=== PATIENT | female | born 1980 | race Caucasian/White ===

== ENCOUNTER 2019-11-24 14:00 | Outpatient (RCR) | payer OTHER, SELFPAY ==
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
--- NOTE | 2019-11-15 13:57 | PCPTNOTE ---
Patient arrived to scheduled appointment this date with her two small children due to no home child care provider; per new guideline with facility appointment needed to be cancelled due to children under age of 18 being allowed.
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
== END 2019-11-24 15:47 | disposition home or self-care (01) ==
LOC: ANHPT 14:00
PROVIDERS: PCP Family Medicine; Visit Provider Family Medicine
DX: M51.06 Intervertebral disc disorders with myelopathy, lumbar region (principal)
CPT/HCPCS: 97014; 97110; 97161; G0283

== ENCOUNTER 2019-12-29 11:14 | Outpatient (CLI) | payer OTHER, SELFPAY ==
[2019-12-29 11:38] LABS: Basophils Absolute Auto 0.1 K/mm3 (0.0-0.1); Basophils Percent Auto 0.7 % (0.2-1.2); Eosinophils Absolute Auto 0.1 K/mm3 (0-0.3); Eosinophils Percent Auto 1.9 % (0-4.4); Hematocrit 45.5 % (37.0-47.0); Hemoglobin 15.2 g/dL (12.0-15.0); Immature Granulocyte Absolute 0.01 K/mm3 (0.00-0.031); Immature Granulocyte Percent A 0.1 % (0-0.5); Lymphocytes Absolute Auto 1.78 K/mm3 (0.9-3.2); Lymphocytes Percent Auto 23.8 % (18.3-44.2); Mean Corpuscular HGB Conc 33.4 g/dl (32-36); Mean Corpuscular Hemoglobin 30.5 pg (26-34); Mean Corpuscular Volume 91.4 fl (80-100); Mean Platelet Volume 9.9 fl (7.4-10.4); Monocytes Absolute Auto 0.5 K/mm3 (0.1-0.6); Monocytes Percent Auto 7.2 % (2.6-8.5); Neutrophils Percent Auto 66.3 % (45.5-73.1); Platelet Count Result 274 k/mm3 (150-375); Red Blood Count 4.98 M/mm3 (4.2-5.4); Red Cell Distribution Width 13.1 % (11.5-14.5); White Blood Count 7.5 K/mm3 (4.5-10.0)
[2019-12-29 11:50] LABS: Alanine Aminotransferase 11 U/L (4-35); Albumin Level 4.5 g/dL (3.5-5.1); Alkaline Phosphatase 88 U/L (38-126); Aspartate Amino Transferase 18 U/L (14-36); Bilirubin,Total 0.7 mg/dL (0.2-1.3); Blood Urea Nitrogen 11 mg/dL (7-17); Calcium 9.1 mg/dL (8.4-10.2); Carbon Dioxide 25 mmol/L (22-30); Chloride 108 mmol/L (98-107); Estimated Glomerular Filt Rate > 60; Glucose 95 mg/dL (65-105); Potassium 3.8 mmol/L (3.4-5.0); Sodium 143 mmol/L (137-145)
[2019-12-29 12:27] LABS: Free T4 Free Thyroxine 1.34 ng/mL (0.78-2.19)
== END 2019-12-29 11:15 | disposition home or self-care (01) ==
PROVIDERS: PCP Family Medicine; Visit Provider Psychiatry & Neurology Neurology
DX: R41.3 Other amnesia (principal)
CPT/HCPCS: 36415; 80053; 84439; 85025; 86038

== ENCOUNTER 2020-01-01 06:58 | Outpatient (CLI) | payer OTHER, SELFPAY ==
--- NOTE | ~2020-01-01 | MR_ITS ---
EXAMINATION: MR brain/brain stem wo con DATE: 01/01/2020 07:56 INDICATION: Memory loss. TECHNIQUE: Magnetic resonance imaging (MRI) of the brain and brainstem was performed without intraven ous contrast. Sequences included sagittal and axial T1-weighted FSE, axial diffusion-weighted FS EPI, axial T2*-weighted GRE, axial T2-weighted FLAIR Propeller, and axial T2-weighted Propeller. Apparent diffusion coefficient (ADC) maps were created. COMPARISON: None. FINDINGS: There are scattered areas of nonspecific increased T2-weighted signal intensity in the cere bral white matter, which is within normal limits for the patient's age. There is no intracranial hemo rrhage, acute infarction, or abnormal intracranial mass lesion. The ventricles are normal in size. Th e paranasal sinuses are clear. The orbits are normal. The mastoid air cells are normal. IMPRESSION: 1. Normal aging brain. Reviewed, dictated and finalized at location A. IMPRESSION: 1. Normal aging brain.
--- NOTE | 2020-01-01 08:30 | NEURO_ITS ---
TEST: DIAGNOSIS: ELECTROENCEPHALOGRAM PATIENT NUMBER: [id number] EEG NUMBER: [id number] RECORDING DATE: 01/01/20 CLINICAL HISTORY: Patient reports she has been having memory loss for a couple of months. Cannot remember events of previous days. CONDITION OF RECORDING: Awake and drowsy EEG DESCRIPTION: Basic resting occipital frequency consists of small amount of well organized medium to high voltage 7-8hz theta and alpha activity mixed with minimal amount of low voltage 15-18hz beta. During drowsiness low voltage beta activity is seen diffusely mixed with waxing and waning posterior alpha rhythms. Photic stimulation produced normal drive. Hyperventilation produced normal and symmetrical build-up. Nonparoxysmal. Nonfocal. Nonlateralizing. IMPRESSION: No significant abnormalities noted. MTDD
== END 2020-01-01 06:59 | disposition home or self-care (01) ==
LOC: ANHIMG 07:02
PROVIDERS: PCP Family Medicine; Visit Provider Psychiatry & Neurology Neurology
DX: R41.3 Other amnesia (principal)
CPT/HCPCS: 70551; 95816

== ENCOUNTER 2022-02-17 07:45 | Outpatient (CLI) | payer OTHER, SELFPAY ==
--- NOTE | ~2022-02-17 | US_ITS ---
EXAMINATION: US pelvic complete DATE: 02/17/2022 11:41 INDICATION: Right lower quadrant abdominal pain. TECHNIQUE: Multiple transabdominal sonographic images of the pelvis were obtained. COMPARISON: CT abdomen and pelvis 04/12/2015 FINDINGS: The uterus is absent. There is no free fluid in the pelvis. The right ovary measures 2.6 x 2.5 x 1.8 cm. The left ovary measures 1.4 x 1.4 x 1.5 cm. There is normal vascular flow in the ovaries. The appendix is not identified. IMPRESSION: 1. Normal ovaries. 2. Absent uterus. 3. Appendix not identified. Reviewed, dictated and finalized at location A.
== END 2022-02-17 07:46 | disposition home or self-care (01) ==
PROVIDERS: Visit Provider Physician Assistant
DX: R10.31 Right lower quadrant pain (principal)
CPT/HCPCS: 76856

== ENCOUNTER 2023-01-12 12:49 | Emergency (ER) | payer OTHER, SELFPAY ==
[2023-01-12 12:54] VITALS: BP 126/74; PULSE 90; RESP 16; TEMP 37.1; O2SAT 99
--- NOTE | 2023-01-12 14:35 | PC.NURSE ---
called for patient in waiting room, no answer
--- NOTE | 2023-01-12 14:41 | PC.NURSE ---
attempted to call patient to room for second time, no answer. patient left without being seen
== END 2023-01-12 14:41 | disposition left against medical advice (07) ==
DX: R25.2 Cramp and spasm (principal)
CPT/HCPCS: 99199

== ENCOUNTER 2024-03-21 10:05 | Emergency (ER) | payer OTHER, SELFPAY ==
--- NOTE | ~2024-03-21 | US_ITS ---
EXAMINATION: US soft tissue upper back DATE: 03/21/2024 10:52 INDICATION: Palpable lump suspicious for abscess the left upper back TECHNIQUE: Multiple grayscale and Doppler ultrasound images of the region of concern at the posterola teral left upper back were obtained. COMPARISON: None FINDINGS: There is a heterogeneously hypoechoic likely complex cystic lesion in the subcutis tissues at the reg ion of concern which measures 1.7 x 1.6 x 1.6 cm without internal vascular flow on color Doppler. The re is some increased vascular flow at the periphery which could be seen with hyperemia in the setting of abscess. The lesion extends to within 1 mm of the skin surface. IMPRESSION: 1. Relatively superficial subcutaneous 1.7 cm complex cystic lesion at the region of concern with dif ferential including abscess, hematoma and epidermoid cyst. Reviewed, dictated and finalized at location A. IMPRESSION: 1. Relatively superficial subcutaneous 1.7 cm complex cystic lesion at the chris on of concern with differential including abscess, hematoma and epidermoid cyst .
[2024-03-21 10:10] VITALS: BP 143/89; PULSE 79; RESP 16; TEMP 36.7; O2SAT 99
[2024-03-21] MEDS: HYDROcodone/acetaminophen (*CRX) 5-325 MG TABLET 1 TAB PO (10:22)
--- NOTE | 2024-03-21 10:32 | ED.SKABFB ---
HPI - Skin/Abscess/Foreign Bdy General Chief complaint: Skin/Abscess/Foreign Body Stated complaint: L upper back and L shoulder pain Time Seen by Provider: 03/21/24 10:09 History of Present Illness HPI narrative: Patient has had lump on L skin for months but today it started hurting quite a bit. No systemic symptoms, no n/v or f/c Related Data Home Medications Medication Instructions Recorded Confirmed albuterol sulfate 90 mcg/actuation 1 puff inhalation Q4H PRN 08/25/19 08/25/19 aerosol inhaler budesonide-formoterol HFA 160 2 puff inhalation Q12H 08/25/19 08/25/19 mcg-4.5 mcg/actuation aerosol inhaler (Symbicort) warfarin 5 mg tablet 5 mg PO DAILY 08/25/19 08/25/19 Allergies Allergy/AdvReac Type Severity Reaction Status Date / Time aspirin AdvReac Mild Rash Verified 03/21/24 10:07 Review of Systems Review of Systems: All systems reviewed & are unremarkable except as noted in HPI and below PMFSH Past Medical History Medical History (Updated 03/21/24 @ 11:34 by Svetlana Rowe MD) Arthritis Asthma-COPD overlap syndrome Hypersomnia Pulmonary embolism Tobacco abuse Social History Social History (Updated 08/25/19 @ 08:54 by Yokasta Ross) Smoking status: Current every day smoker Exam Narrative: EXAMINATION OF ORGAN SYSTEMS/BODY AREAS: Constitutional: Vital signs per nursing GENERAL:[No acute distress, non-toxic appearing.] HEAD: Normal with no signs of head trauma. EYES: EOMI, conjunctiva normal ENT: Hearing grossly intact LUNGS: Nonlabored breathing. HEART: [Regular rate and rhythm] ABD: [Soft], [nontender to palpation] EXT: Normal range of motion SKIN: 2cm round raised lesion with some surrounding induration/erythema to L upper back/trunk, tender to palpation, no obvious fluctuance NEURO: [Alert and oriented x 3. No gross focal sensory or strength deficits.] PSYCH: Normal affect Course Vital Signs Vital signs: Vital Signs Temperature 98.1 F 03/21/24 10:10 Pulse Rate 79 03/21/24 10:10 Respiratory Rate 16 03/21/24 10:10 Blood Pressure 143/89 H 03/21/24 10:10 Pulse Oximetry 99 03/21/24 10:10 Oxygen Delivery Room Air 03/21/24 10:10 Temperature 98.1 F 03/21/24 10:10 Pulse Rate 79 03/21/24 10:10 Respiratory Rate 16 03/21/24 10:10 Blood Pressure 143/89 H 03/21/24 10:10 Pulse Oximetry 99 03/21/24 10:10 Oxygen Delivery Room Air 03/21/24 10:10 MDM - Skin/Abscess/Foreign Bdy MDM Narrative Medical decision making narrative: MEDICAL DECISION MAKING AND COURSE IN THE ED WITH INTERPRETATION/REVIEW OF DIAGNOSTIC STUDIES: Electronic medical record was reviewed. Patient presented to the ED with complaint of painful skin lesion, lesion has been there for months but not painful until last 1-2 days. Vitals [were within acceptable limits]. Physical exam revealed area of tenderness and induration consistent with abscess, [without] fluctuance that may benefit from drainage. I did perform bedside US but did not appreciate any obvious fluid collection; will therefore obtain formal radiology US. This shows possibly a complex cyst/ abscess with heterogenous contents. Incision and drainage was performed here, verbal consent obtained and risks/benefits explained. Skin was cleaned and [2% lidocaine] solution was injected to make a wheal for local anesthesia. A scalpel was used to make a [50mm] incision and Moderate amount of purulent discharge with cheesy\ harder substance was expressed from the incision. There was [minimal] bleeding, patient tolerated procedure [well]. Wound was left open to allow for further drainage. does appear consistent with I suspect infected cyst given her history/exam. [Patient was given clindamycin here and a course to continue at home.] The patient is discharged home in stable condition. I have asked the patient to return to the emergency department for worsening pain, worsening and increasing size of skin infection, fevers/ch
[2024-03-21] MEDS: CLINDAMYCIN HCL 150 MG CAP 600 MG PO (11:34)
[2024-03-21 11:43] VITALS: BP 138/76; PULSE 64; RESP 16; O2SAT 100
== END 2024-03-21 11:43 | disposition home or self-care (01) ==
PROVIDERS: Emergency Provider Emergency Medicine; PCP Physician Assistant
DX: L72.9 Follicular cyst of the skin and subcutaneous tissue, unspecified (principal); L08.9 Local infection of the skin and subcutaneous tissue, unspecified; J44.9 Chronic obstructive pulmonary disease, unspecified; M19.90 Unspecified osteoarthritis, unspecified site; F17.200 Nicotine dependence, unspecified, uncomplicated; Z86.711 Personal history of pulmonary embolism; Z79.01 Long term (current) use of anticoagulants
CPT/HCPCS: 10140; 76604; 99284; A9270

== ENCOUNTER 2024-08-11 13:46 | Emergency (ER) | payer OTHER, SELFPAY ==
--- NOTE | 2024-08-11 13:53 | ECG_ITS ---
Test Date: 2024-08-11 13:58:34 Measurements Intervals [place] Rate: 82 P: 66 WA: 163 QRS: 53 QRSD: 79 T: 28 QT: 341 QTc: 401 Interpretive Statements SINUS RHYTHM LOW QRS VOLTAGE IN PRECORDIAL LEADS [QRS DEFLECTION < 1.0 mV IN CHEST LEADS] POSSIBLE RIGHT VENTRICULAR CONDUCTION DELAY [RSR (QR) IN V1/V2] NONSPECIFIC ST & T-WAVE ABNORMALITY No previous ECG available for comparison Electronically Signed On 08-11-2024 23:54:22 DIRECTOR [employer] by Geovani Glover M.D.
--- OUTSIDE RECORDS SUMMARY | 2024-08-11 13:53 | XMS_ITS | CONTINUITY OF CARE DOCUMENT ---
Author Name rosio avelar Address Unknown Organization [facility] Address [address] [place] [address] Phone [phone] Care Team Providers Care Sergeant Of Officers Name Role Phone Ijeoma Morataya MD Unavailable NICANOR MIKE MD Unavailable [phone] NICANOR MIKE MD Unavailable PROBLEMS Condition Status Date Provider Notes Family History Coronary Hear t Disease female < 65: active ? Anupam Barkley Family History of Hypertension: completed - Ja cob Nacht Tobacco abuse active Anupam Barkley Fatigue active Anupam Barkley Snoring active Samy Nash Shortness of breath active Anupam Barkley Chest pain active Anupam Barkley Hyperlipidemia active Omar Nacht COPD active Omar Nacht Cardiomyopathy active Omar Nacht Hypertension active Samy Nash hx of Pulmonary embolism active Annika gastelum CHILD LIFE SPECIALIST Palpitations active Annika Garcia CH[facility] LIFE SPECIALIST ENCOUNTERS Date Type Provider Location Encounter Diag nosis - In-person encounter Office Visit Ijeoma Morataya MD [facility] - In-person encounter Office Visit Ijeoma Morataya MD [facility] - In-person encounter Office Visit Ijeoma Morataya MD [facility] hx of Pulmonary embolismPalpitations - In-person encounter Office Visit Ijeoma Morataya MD [facility] - In-person encounter Office Visit Ijeoma Morataya MD [facility] SnoringHypertension - In-person encounter Office Visit Ijeoma Morataya MD [facility] - In-person encounter Office Visit Ijeoma Morataya MD [facility] - In-person encounter Office Visit Ijeoma Morataya MD [facility] - In-person encounter Office Visit Ijeoma Morataya MD [facility] - In-person encounter Office Visit Ijeoma Morataya MD [facility] - In-person encounter Office Visit Ijeoma Morataya MD [facility] - In-person encounter Office Visit Ijeoma Morataya MD [facility] - In-person encounter Office Visit Ijeoma Morataya MD [facility] - In-person encounter Office Visit Ijeoma Morataya MD [facility] - In-person encounter Office Visit Ijeoma Morataya MD [facility] Family History of Hypertension:SnoringHyperlipidemi aCOPDCardiomyopathy - In-person encounter Office Visit Ijeoma Morataya MD [facility] Family History Coronary Heart Disease female < 65:Tobacco abuseFatigueSnoringShortness of breathChest pain VITAL SIGNS Date Observation Value Provider Body Mass Index (Ratio) 26.46 kg/m2 Simba Rodrigez blood pressure, cuff size regular Ke rri Orlandouechrister blood pressure, diastolic 80 mm[Hg] Ke rri Gruenenfcoletteer blood pressure, systolic 130 mm[Hg] Ker ri Marynenfelder oxygen saturation, oximetry 94 % Ida Gruenenfelder respiratory rate E&M 14 /min Ida G ruenenfelder pulse rate 92 /min Ida Gruenenfe lder weight E&M 159 [lb_av] Ida Gruenenfe lder height E&M 65 [in_i] Ida [facility]fe [facility] Body Mass Index (Ratio) 25.96 kg/m2 Simba Ahmedzai blood pressure, diastolic 74 mm[Hg] Annalee nkLogic blood pressure, systolic 105 mm[Hg] [facility] oxygen saturation, oximetry 98 % Yokasta [place] pulse rate 78 /min Yokasta Hartleyma n blood pressure, diastolic 74 mm[Hg] [facility] ephanie [place] blood pressure, systolic 105 mm[Hg] Long phanie [place] blood pressure, cuff size small [facility] ephanie [place] respiratory rate E&M 16 /min Mike ie [place] weight E&M 156 [lb_av] Yokasta Lohma n height E&M 65 [in_i] Yokasta Lohma n blood pressure, diastolic 79 mm[Hg] Annalee nkLogic blood pressure, systolic 110 mm[Hg] [facility] Body Mass Index (Ratio) 26.29 kg/m2 Simba Ahmedzai blood pressure, cuff size regular Ke rri Gruenenfelder blood pressure, diastolic 79 mm[Hg] Ke rri Gruenenfelder blood pressure, systolic 110 mm[Hg] Mary ri Gruenenfelder respiratory rate E&M 16 /min Ida Kate ruenenfelder oxygen saturation, oximetry 97 % Ida Gruenenfelder pulse rate 88 /min Ida Gruenenfe lder weight E&M 158 [lb_av] Ida Gruenenfe lder height E&M 65 [in_i] Ida Gruenenfe lder Body Mass Index (Ratio) 25.62 kg/m2 [place] blood pressure, cuff size large Ke rri Gruenenfelder blood pressure, diastolic 68 mm[Hg] Ke rri Gruenenfelder blood pressure, systolic 111 mm[Hg] Ker ri Gruenenfelder oxygen saturation, oximetry 96 % Ida Gruenenfelder respiratory rate E&M 14 /min Ida G ruenenfelder pulse rate 91 /min Ida Gruenenfe er weight E&M 154 [lb_av] Ida Gruenenfe er height E&M 65 [in_i] Ida [facility]fe [facility] Body Mass Index (Ratio) 25.29 kg/m2 [place] Saad blood pressure, cuff size large Ke rri Gruenenfelder blood pressure, diastolic 60 mm[Hg] Ke rri Gruenenfelder blood pressure, systolic 110 mm[Hg] Ker ri Gruenenfelder oxygen saturation, oximetry 97 % Ida Gruenenfelder respiratory rate E&M 14 /min Ida G ruenenfelder pulse rate 82 /min Ida Gruenenfe lder weight E&M 152 [lb_av] Ida Gruenenfe lder height E&M 65 [in_i] Ida Gruenenfe lder Body Mass Index (Ratio) 24.29 kg/m2 [place] Saad blood pressure, diastolic 60 mm[Hg] Annalee nkLogic blood pressure, systolic 104 mm[Hg] Tracy kLogic blood pressure, diastolic 60 mm[Hg] Arnel Pacheco blood pressure, systolic 104 mm[Hg] Carolyn Pacheco oxygen saturation, oximetry 98 % Fabrizio Pacheco respiratory rate E&M 16 /min Ariella Pacheco pulse rate 71 /min Fabrizio palacio weight E&M 146 [lb_av] Fabrizio palacio height E&M 65 [in_i] Fabrizio Cordova amber Body Mass Index (Ratio) 25.12 kg/m2 [place] blood pressure, cuff size regular Ke rri Gruenenfelder blood pressure, diastolic 60 mm[Hg] Ke rri Gruenenfelder blood pressure, systolic 110 mm[Hg] Ker ri Gruenenfelder oxygen saturation, oximetry 98 % Ida Gruenenfelder respiratory rate E&M 16 /min Ida G retaenenfelder pulse rate 81 /min Ida Gruenenfe lder weight E&M 151 [lb_av] Ida Gruenenfe lder height E&M 65 [in_i] Ida Gruenenfe lder blood pressure, cuff size regular Ke rri Gruenenfelder blood pressure, diastolic 80 mm[Hg] Ke rri Gruenenfelder blood pressure, systolic 130 mm[Hg] Ker ri Gruenenfelder oxygen saturation, oximetry 97 % Ida Gruenenfelder respiratory rate E&M 16 /min Ida G ruenenfelder pulse rate 98 /min Ida Hayley lder height E&M 65 [in_i] Ida Víctore lder Body Mass Index (Ratio) 27.12 kg/m2 Juancarlos Morataya MD blood pressure, cuff size large Ke rri Gruenenfelder blood pressure, diastolic 70 mm[Hg] Ke rri Gruenenfelder blood pressure, systolic 110 mm[Hg] Ker ri Grbladenenfelder oxygen saturation, oximetry 98 % Ida Víctorelder respiratory rate E&M 16 /min Ida G ruenenfelder pulse rate 92 /min Ida Víctore lder weight E&M 163 [lb_av] Ida Hayley er height E&M 65 [in_i] Ida Víctore lder Body Mass Index (Ratio) 26.79 kg/m2 Jord en Timoteo blood pressure, cuff size regular Ronnie Pop RN blood pressure, diastolic 70 mm[Hg] Ronnie Pop RN blood pressure, systolic 100 mm[Hg] Leland Pop RN oxygen saturation, oximetry 98 % Leland Pop RN respiratory rate E&M 20 /min Leland ness RN pulse rate 71 /min Leland Pop RN weight E&M 161 [lb_av] Leland Pop RN temperature site temporal Shyanne Tank sley temperature E&M 97.7 [degF] Shyanne Tanks dima Body Mass Index (Ratio) 27.12 kg/m2 Jord en [place] pulse rate 87 /min Malaika Block oxygen saturation, oximetry 98 % Malaika Block blood pressure, diastolic 74 mm[Hg] Br ittany Block blood pressure, systolic 118 mm[Hg] Shanta marcial Block weight E&M 163 [lb_av] Malaika Block blood pressure, resting Yes Brit obinna Block respiratory rate E&M 16 /min Brittan y Block height E&M 65 [in_i] Malaika Block Body Mass Index (Ratio) 27.79 kg/m2 Jord en [place] blood pressure, diastolic 70 mm[Hg] Kr isty Branford blood pressure, systolic 110 mm[Hg] Kri stazul [place] oxygen saturation, oximetry 98 % Henrietta Jaclyn respiratory rate E&M 17 /min Henrietta Jaclyn pulse rate 92 /min Henrietta Branford weight E&M 167 [lb_av] Henrietta Branford height E&M 65 [in_i] Henrietta Branford Body Mass Index (Ratio) 26.79 kg/m2 Jord en [place] blood pressure, cuff size regular Cy silvinolouie Sarmiento blood pressure, diastolic 70 mm[Hg] Cy silvinolouie Torsten blood pressure, systolic 110 mm[Hg] Rosa M renetta Sarmiento oxygen saturation, oximetry 94 % Vanelorena Sarmiento respiratory rate E&M 16 /min Vane Sarmiento pulse rate 77 /min Vane Sudhirbel l weight E&M 161 [lb_av] Vane Campbel l height E&M 65 [in_i] Vane Campbel l Body Mass Index (Ratio) 25.96 kg/m2 Jord en [place] blood pressure, diastolic 70 mm[Hg] Ki lleen Lewis blood pressure, systolic 110 mm[Hg] Kil marzena Lewis oxygen saturation, oximetry 99 % Bagley Lewis respiratory rate E&M 16 /min Jennifer Lewis pulse rate 75 /min Jennifer Lewis weight E&M 156 [lb_av] Jennifer Lewis height E&M 65 [in_i] Jennifer Lewis Body Mass Index (Ratio) 25.79 kg/m2 Juancarlos Morataya MD blood pressure, diastolic 70 mm[Hg] [facility] blood pressure, systolic 100 mm[Hg] Mehrdad ivan Lewis oxygen saturation, oximetry 95 % respiratory rate E&M 16 /min Bagley Lewis pulse rate 94 /min weight E&M 155 [lb_av] height E&M 65 [in_i] Jennifer Lewis Body Mass Index (Ratio) 26.62 kg/m2 Yoan Filippo blood pressure, diastolic 70 mm[Hg] Da adelaide Augie blood pressure, systolic 102 mm[Hg] Dac ia Augie oxygen saturation, oximetry 97 % Ofelia Augie respiratory rate E&M 16 /min Ofelia V oss pulse rate 94 /min Ofelia Augie weight E&M 160 [lb_av] Ofelia Augie height E&M 65 [in_i] Ofelia Augie ALLERGIES Allergy Name Onset Date Reaction Criticality Status ASPIRIN High Criticality active RESULTS Date Observation Value Provider Reference Range Interpretation Location 1 lipoprotein, beta, serum, point, quantitative, calculated 194 mg/dL [facility] 0-99 High 1 HDL cholesterol, serum 40 mg/dL [facility] >39 1 triglyceride, serum, random 89 mg/dL [facility] 0-149 1 cholesterol, serum 250 mg/dL [facility] 100-199 High 1 alanine aminotransferase (SGPT), serum 11 1/L [facility] 0-32 1 aspartate aminotransferase (SGOT), serum 15 1/L [facility] 0-40 1 alkaline phosphatase, serum 117 1/L [facility] 48-121 1 bilirubin, serum, total 0.5 mg/dL [facility] 0.0-1.2 1 albumin/globulin ratio, serum 1.9 [facility] 1.2-2.2 1 globulin, serum 2.5 [facility] 1.5-4.5 1 albumin, serum 4.8 g/dL [facility] 3.8-4.8 1 protein, total, serum 7.3 g/dL [facility] 6.0-8.5 1 calcium, serum 9.4 mg/dL [facility] 8.7-10.2 1 carbon dioxide, venous blood 22 mmol/L [facility] 20-29 1 chloride, serum 104 mmol/L [facility] 96-106 1 potassium, serum 4.8 mmol/L [facility] 3.5-5.2 1 sodium, serum 140 mmol/L [facility] 235-394 1397/08/2 1 urea nitrogen/creatinine ratio, serum 12 [facility] 9-23 1 eGFR if 109 mL/min/{1 .73_m2} [facility] >59 1 eGFR if not 95 mL/min/{1 .73_m2} [facility] >59 1 creatinine, serum 0.78 mg/dL [facility] 0.57-1.00 1 urea nitrogen, blood 9 mg/dL [facility] 6-24 1 blood glucose, random 99 mg/dL [facility] 65-99 2 lipoprotein, beta, serum, point, quantitative, calculated 135 mg/dL [facility] 0-99 High 2 HDL cholesterol, serum 30 mg/dL [facility] >39 Low 2 triglyceride, serum, random 153 mg/dL [facility] 0-149 High 2 cholesterol, serum 193 mg/dL [facility] 361-201 8428/06/1 2 alanine aminotransferase (SGPT), serum 6 1/L [facility] 0-32 2 aspartate aminotransferase (SGOT), serum 15 1/L [facility] 0-40 2 alkaline phosphatase, serum 101 1/L [facility] 48-121 2 bilirubin, serum, total 0.5 mg/dL [facility] 0.0-1.2 2 albumin/globulin ratio, serum 1.8 [facility] 1.2-2.2 2 globulin, serum 2.3 [facility] 1.5-4.5 2 albumin, serum 4.2 g/dL [facility] 3.8-4.8 2 protein, total, serum 6.5 g/dL [facility] 6.0-8.5 2 calcium, serum 9.0 mg/dL [facility] 8.7-10.2 2 carbon dioxide, venous blood 21 mmol/L [facility] 20-29 2 chloride, serum 108 mmol/L [facility] 96-106 High 2 potassium, serum 4.5 mmol/L [facility] 3.5-5.2 2 sodium, serum 142 mmol/L [facility] 656-922 2366/06/1 2 urea nitrogen/creatinine ratio, serum 9 [facility] 9-23 2 eGFR if 91 mL/min/{1 .73_m2} [facility] >59 2 eGFR if not 79 mL/min/{1 .73_m2} [facility] >59 2 creatinine, serum 0.91 mg/dL [facility] 0.57-1.00 2 urea nitrogen, blood 8 mg/dL [facility] 6-24 2 blood glucose, random 92 mg/dL [facility] 65-99 0 alanine aminotransferase (SGPT), serum 10 1/L [facility] 0-32 0 aspartate aminotransferase (SGOT), serum 15 1/L [facility] 0-40 0 alkaline phosphatase, serum 123 1/L [facility] 39-117 High 0 bilirubin, serum, direct 0.09 mg/dL [facility] 0.00-0.40 0 bilirubin, serum, total 0.3 mg/dL [facility] 0.0-1.2 0 albumin, serum 4.3 g/dL [facility] 3.8-4.8 0 protein, total, serum 6.7 g/dL [facility] 6.0-8.5 0 lipoprotein, beta, serum, point, quantitative, calculated 169 mg/dL [facility] 0-99 High 0 HDL cholesterol, serum 33 mg/dL [facility] >39 Low 0 triglyceride, serum, random 128 mg/dL [facility] 0-149 0 cholesterol, serum 226 mg/dL [facility] 100-199 High 5 free thyroxine index 2.2 [facility] 1.2-4.9 5 triiodothyronine resin uptake 24 % [facility] 24-39 5 thyroxine, serum, total 9.0 ug/dL [facility] 4.5-12.0 5 thyroid stimulating hormone, serum 1.810 u[IU]/mL [facility] 0.450-4.500 5 lipoprotein, beta, serum, point, quantitative, calculated 142 mg/dL [facility] 0-99 High 5 HDL cholesterol, serum 29 mg/dL [facility] >39 Low 5 triglyceride, serum, random 164 mg/dL [facility] 0-149 High 5 cholesterol, serum 201 mg/dL [facility] 100-199 High 5 platelet count 272 X10E3/UL [facility] 433-126 6149/12/0 5 red blood cell distribution width 12.9 % [facility] 11.7-15.4 5 mean corpuscular hemoglobin concentration, RBC 31.8 G/DL [facility] 31.5-35.7 5 mean corpuscular hemoglobin, RBC 29.2 pg [facility] 26.6-33.0 mean corpuscular volume, RBC 92 fL [facility] 79-97 hematocrit, blood 45.0 % LinkLog 34.0-46.6 hemoglobin, blood 14.3 g/dL [facility] 11.1-15.9 5 erythrocyte (RBC) count 4.89 X10E6/UL [facility] 3.77-5.28 5 leukocyte count, blood 7.3 X10E3/UL [facility] 3.4-10.8 5 alanine aminotransferase (SGPT), serum 6 1/L [facility] 0-32 5 aspartate aminotransferase (SGOT), serum 12 1[facility] 5 alkaline phosphatase, serum 106 1/L [facility] 39-117 5 bilirubin, serum, total 0.3 mg/dL [facility] 0.0-1.2 5 albumin/globulin ratio, serum 1.9 [facility] 1.2-2.2 5 globulin, serum 2.3 [facility] 1.5-4.5 5 albumin, serum 4.3 g/dL [facility] 3.8-4.8 5 protein, total, serum 6.6 g/dL [facility] 6.0-8.5 5 calcium, serum 9.0 mg/dL [facility] 8.7-10.2 5 carbon dioxide, venous blood 19 mmol/L [facility] 20-29 Low 5 chloride, serum 105 mmol/L [facility] 96-106 5 potassium, serum 3.9 mmol/L [facility] 3.5-5.2 5 sodium, serum 140 mmol/L [facility] 119-433 4737/12/0 5 urea nitrogen/creatinine ratio, serum 7 [facility] 9-23 Low 2020/12/0 5 eGFR if 101 mL/min/{1 .73_m2} [facility] >59 5 eGFR if not 87 mL/min/{1 .73_m2} [facility] >59 5 creatinine, serum 0.84 mg/dL [facility] 0.57-1.00 5 urea nitrogen, blood 6 mg/dL [facility] 6-24 5 blood glucose, random 104 mg/dL [facility] 65-99 High 8 free thyroxine index 2.1 [facility] 1.2-4.9 8 triiodothyronine resin uptake 22 % [facility] 24-39 Low 8 thyroxine, serum, total 9.6 ug/dL [facility] 4.5-12.0 8 lipoprotein, beta, serum, point, quantitative, calculated 183 mg/dL [facility] 0-99 High 8 very low density lipoproteins 29 mg/dL [facility] 5-40 8 HDL cholesterol, serum 34 mg/dL [facility] >39 Low 8 triglyceride, serum, random 144 mg/dL [facility] 0-149 8 cholesterol, serum 246 mg/dL [facility] 100-199 High 8 basophil count, absolute 0.1 x10E3/uL [facility] 0.0-0.2 8 Eosinophil Absolute Count 0.1 X10E3/UL [facility] 0.0-0.4 8 monocyte count, blood, automated 0.7 X10E3/UL [facility] 0.1-0.9 8 lymphocyte count, blood, automated 2.0 X10E3/UL [facility] 0.7-3.1 8 Absolute Neutrophils 5.9 X10E3/UL [facility] 1.4-7.0 8 basophils as percent of blood leukocytes 1 % [facility] Not Estab. 8 eosinophils as percent of blood leukocytes 1 % [facility] Not Estab. 8 monocytes as percent of blood leukocytes 8 % [facility] Not Estab. 8 lymphocytes as percent of blood leukocytes 23 % [facility] Not Estab. 8 neutrophils as percent of blood leukocytes 67 % [facility] Not Estab. 8 platelet count 262 X10E3/UL [facility] 294-251 6124/04/1 8 red blood cell distribution width 12.1 % [facility] 11.7-15.4 8 mean corpuscular hemoglobin concentration, RBC 32.8 G/DL [facility] 31.5-35.7 8 mean corpuscular hemoglobin, RBC 31.0 pg [facility] 26.6-33.0 8 mean corpuscular volume, RBC 94 fL [facility] 79-97 8 hematocrit, blood 44.2 % LinkLog 34.0-46.6 8 hemoglobin, blood 14.5 g/dL [facility] 11.1-15.9 8 erythrocyte (RBC) count 4.68 X10E6/UL [facility] 3.77-5.28 8 leukocyte count, blood 8.7 X10E3/UL [facility] 3.4-10.8 8 alanine aminotransferase (SGPT), serum 8 1/L [facility] 0-32 8 aspartate aminotransferase (SGOT), serum 14 1/L [facility] 0-40 8 alkaline phosphatase, serum 112 1/L [facility] 39-117 8 bilirubin, serum, total 0.4 mg/dL [facility] 0.0-1.2 8 albumin/globulin ratio, serum 2.0 [facility] 1.2-2.2 8 globulin, serum 2.4 [facility] 1.5-4.5 8 albumin, serum 4.7 g/dL [facility] 3.8-4.8 8 protein, total, serum 7.1 g/dL [facility] 6.0-8.5 8 calcium, serum 10.0 mg/dL LinkLog 8.7-10.2 8 carbon dioxide, venous blood 24 mmol/L [facility] 20-29 8 chloride, serum 104 mmol/L [facility] 96-106 8 potassium, serum 4.9 mmol/L [facility] 3.5-5.2 8 sodium, serum 145 mmol/L [facility] 134-144 High 8 urea nitrogen/creatinine ratio, serum 9 [facility] 9-23 8 eGFR if 98 mL/min/{1 .73_m2} [facility] >59 8 eGFR if not 85 mL/min/{1 .73_m2} [facility] >59 8 creatinine, serum 0.86 mg/dL [facility] 0.57-1.00 8 urea nitrogen, blood 8 mg/dL [facility] 6-24 8 blood glucose, random 93 mg/dL [facility] 65-99 6 lipoprotein, beta, serum, point, quantitative, calculated 193 mg/dL [facility] 0-99 High 6 very low density lipoproteins 26 mg/dL [facility] 5-40 6 HDL cholesterol, serum 36 mg/dL [facility] >39 Low 6 triglyceride, serum, random 128 mg/dL [facility] 0-149 6 cholesterol, serum 255 mg/dL [facility] 100-199 High 6 alanine aminotransferase (SGPT), serum 31 1/L [facility] 0-32 6 aspartate aminotransferase (SGOT), serum 27 1/L [facility] 0-40 6 alkaline phosphatase, serum 110 1/L [facility] 39-117 6 bilirubin, serum, total 0.4 mg/dL [facility] 0.0-1.2 6 albumin/globulin ratio, serum 1.6 [facility] 1.2-2.2 6 globulin, serum 2.5 [facility] 1.5-4.5 6 albumin, serum 4.1 g/dL [facility] 3.5-5.5 6 protein, total, serum 6.6 g/dL [facility] 6.0-8.5 6 calcium, serum 9.5 mg/dL [facility] 8.7-10.2 6 carbon dioxide, venous blood 21 mmol/L [facility] 20-29 6 chloride, serum 104 mmol/L [facility] 96-106 6 potassium, serum 4.1 mmol/L [facility] 3.5-5.2 6 sodium, serum 142 mmol/L [facility] 223-582 7909/11/1 6 urea nitrogen/creatinine ratio, serum 6 [facility] 9-23 Low 6 eGFR if 79 mL/min/{1 .73_m2} [facility] >59 6 eGFR if not 69 mL/min/{1 .73_m2} [facility] >59 6 creatinine, serum 1.03 mg/dL [facility] 0.57-1.00 High 6 urea nitrogen, blood 6 mg/dL [facility] 6-20 6 blood glucose, random 82 mg/dL [facility] 65-99 HISTORY OF MEDICATION USE Medication Status Instructions Dates Provider Indications Com ments Zetia 10 mg tablet active 1 tablet once a day 2 Ijeoma Morataya MD TRAZODONE HCL 50 MG TABS active 1 tablet every night 4 Ijeoma Morataya MD CIPRO 500 MG ORAL TABLET completed ONE TAB TWICE DAILY, november substitite quinilone 1 - 5 Leland Pop RN AirDuo RespiClick 232-14 mcg/actuation aerosol powdr breath activated active 1 puff twice a day 1 Sondra HARDINGO ELLIPTA 100-25 MCG/INH INHALATION AEROSOL POWDER BREATH ACTIVATED completed one puff daily 7 - 1 Sondra Hernandez albuterol sulfate 2.5 mg/3 mL (0.083 %) solution for nebulization active 1 puff three times a day 7 Omar Hayward meloxicam 15 mg tablet active Take 1 once a day 5 Ofelia Augie atorvastatin 80 mg tablet active 1 tablet once a day 5 Samy Nash SOCIAL HISTORY Date Observation Value Provider social history reviewed E&M revi ewed - no changes required Simba Rodrigez social history reviewed E&M revi ewed - no changes required Simba Rodrigez Exercise counseling yes Ida Perry tamarchitrahector smoking/tobacco cess ation, patient education and counseling yes Ida Cavanaugh number of years as a smoker 18 a Ida Cavanaugh smoking history, tot al pack/day 1/4 Ida Reneehector cigarette use yes Ida young smoking status Current every day smoker Destiny bell Lelosanchezhector Exercise counseling yes Agustina eagle NP smoking/tobacco cess ation, patient education and counseling yes Ida Harringtonmary kay number of years as a smoker 18 a Ida Cavanaugh smoking history, tot al pack/day 1/4 Ida Harringtonmary kay cigarette use yes Ida young smoking status Current every day smoker Destiny Perryrainesanchezhector social history E&M S moking History: P cori currently smokes every day. P cori has been counseled to quit. Samy Nash social history reviewed E&M revi ewed - no changes required Samy Nash smoking/tobacco cess ation, patient education and counseling yes Ida Reneehector number of years as a smoker 18 a Ida Cavanaugh smoking history, tot al pack/day 1/4 dIa Reneehector cigarette use yes Ida Renee hector smoking status Current every day smoker K erri Grhanh social history E&M S moking History: P atient currently smokes every day. P atient has been counseled to quit. Jimhawk Saad social history reviewed E&M revi ewed - no changes required tiffanyamber Saad smoking/tobacco cess ation, patient education and counseling yes Fabrizio Pacheco number of years as a smoker 18 a Fabrizio Pacheco smoking history, tot al pack/day 1/4 Fabrizio Pacheco cigarette use yes Fabrizio tobar smoking status Current every day smoker Kellie Pacheco social history E&M S moking History: P atient currently smokes every day. P atient has been counseled to quit. Samy Nash social history reviewed E&M revi ewed - no changes required Samy Nash smoking/tobacco cess ation, patient education and counseling yes Ida Cavanaugh number of years as a smoker 18 a Ida Perryrainesanchezcolettemary kay smoking history, tot al pack/day 1/4 Ida Perryrainesanchezhector cigarette use yes Ida young smoking status Current every day smoker Destiny bell Mao social history E&M S moking History: P atient currently smokes every day. P atient has been counseled to quit. Samy Nash smoking/tobacco cess ation, patient education and counseling yes Ida Perryrainesanchezhector number of years as a smoker 18 a Ida Cavanaugh smoking history, tot al pack/day 1/4 Ida Reneecoletteer cigarette use yes Ida young smoking status Current every day smoker K arabella Mao social history E&M S moking History: P atient currently smokes every day. P atient has been counseled to quit. Samy Nash social history reviewed E&M revi ewed - no changes required Samy Nash smoking/tobacco cess ation, patient education and counseling yes Ida Cavanaugh number of years as a smoker 18 a Ida Cavanaugh smoking history, tot al pack/day / Ida Harringtoner cigarette use yes Ida Renee elder smoking status Current every day smoker K arabella Harringtoner social history reviewed E&M revi ewed - no changes required Sae Mahmood social history reviewed E&M revi ewed - no changes required Sae Mahmood smoking/tobacco cess ation, patient education and counseling yes Malaika Desai number of years as a smoker 18 a Malaika Block smoking history, tot al pack/day 07/22 Malaika Block cigarette use yes Malaika Block smoking status Current every day smoker B noni Desai social history reviewed E&M revi ewed - no changes required Sae Mahmood smoking/tobacco cess ation, patient education and counseling yes Henrietta Pettyby number of years as a smoker 18 a Henrietta Branford smoking history, tot al pack/day 07/22 Henrietta Branford cigarette use yes Henrietta Branford smoking status Current every day smoker K ever Anaya social history E&M S moking History: P atient currently smokes every day. P atient has been counseled to quit. Kavin Hughes social history reviewed E&M revi ewed - no changes required Kavin Hughes smoking/tobacco cess ation, patient education and counseling yes Vane Sarmiento number of years as a smoker 18 a Vane Sarmiento smoking history, tot al pack/day 1/4 Vane Sarmiento cigarette use yes Vane Hughes keily smoking status Current every day smoker C adriana Sarmiento social history reviewed E&M revi ewed - no changes required Sae Mahmood smoking/tobacco cess ation, patient education and counseling yes Jennifre Lewis number of years as a smoker 18 a Jennifer Lewis smoking history, tot al pack/day 1 Bagley Lewis cigarette use yes Jennifer Lewis smoking status Current every day smoker K nancy Haywardam social history E&M S moking History: P atient currently smokes every day. P atient has been counseled to quit. Omar Hayward smoking/tobacco cess ation, patient education and counseling yes Omar Mainor social history reviewed E&M revi ewed - no changes required Omar Hayward alcohol use no Jennifer Haywardam number of years as a smoker 18 a Jennifer Lewis smoking history, tot al pack/day 07/22 Jennifer Lewis cigarette use yes Jennifer Lewis smoking status Current every day smoker K nancy Haywardam number of grandchildren Ijeoma Barkley social history reviewed E&M revi ewed - no changes required Anupam Barkley social history E&M S moking History: P atient currently smokes every day. Anupam Barkley alcohol use no Ofelia Augie number of years as a smoker 18 a Ofelia Augie smoking history, tot al pack/day 07/22 Ofelia Augie cigarette use yes Ofelia Augie smoking status Current every day smoker D acia Augie FAMILY HISTORY Family Member Condition Mother PA female <65 Mother Family History of Hy pertension: Mother Family History Coron lyric Heart Disease female < 65: INSURANCE PROVIDERS Payer name Policy type / Coverage type [employer]owe red democrat [place] [employer] [employer] Medicaid [id number] ADVANCE DIRECTIVES Name Date DISCUSSED - NO DECISION MADE TREATMENT PLAN Date Name Performer [id number],C,w ill check chest x ray for further evaluation, she has cough now Formerly [facility] [id number],C, E cho showed normal EF. [facility] [id number],C, E cho EF nl from recent echo [facility] [id number],C, B P today: 130/80 P rior BP: 105/74 (09/18/2022) Labs Reviewed: C reat: 0.78 (03/08/2021) C hol: 250 (03/08/2021) HDL: 40 (03/08/2021) [facility] [id number],C,E cho showed normal EF. She was not able to undergo exercise stress due to intolerance to exertion. Her sxs are stemming from her pulmonary process, will check PFTs [facility] [id number],C, H er updated medication list for this problem includes: Atorvastatin 80 Mg Tablet (Atorvastatin) ..... 1 tablet once a day Zetia 10 Mg Tablet (Ezetimibe) ..... 1 tablet once a day [facility] [id number],C,P atient was advised to stop smoking. [facility] [id number],C, C ontinues to smoke. Counseled on cessation. Continues inhaler as needed. S he has significant SOB on minimal exertion, attributable to her lung process. W ill check PFTs [facility] [id number],C,Echo EF nl fr om recent echo [facility] [id number],C, B P today: 105/74 P rior BP: 110/79 (08/07/2022) Labs Reviewed: C reat: 0.78 (03/08/2021) C hol: 250 (03/08/2021) HDL: 40 (03/08/2021) Simba Rodrigez [id number],C,w ill check VQ scan, stress test, ECHO, 48hr holter, labs, Annika Garcia ANANTH [id number],C,C HOL: 250 (03/08/2021) HDL: 40 (03/08/2021) Her updated medication list for this problem includes: Atorvastatin 80 Mg Tablet (Atorvastatin) ..... 1 tablet once a day Zetia 10 Mg Tablet (Ezetimibe) ..... 1 tablet once a day will check fasting lipid panel Annika Carloshector [facility] [id number],C, B P today: 110/79 P rior BP: 111/68 (01/02/2022) Labs Reviewed: C reat: 0.78 (03/08/2021) C hol: 250 (03/08/2021) HDL: 40 (03/08/2021) Annika Carloshector [facility] [id number],C,w il check 48hr monitor, echo, routine stress test, sleep study, VQ scan Annika Carloshector [facility] [id number],C,h x of pe. pt reports similar symptoms of SOB, chest pain radiating to L arm/side of body. will check VQ scan. echo, d-dimer, pt/ptt. Annika Garcia NP [id number],S,e ncouraged strict cessation of cigarettes. Agustina Franks NP [id number],S, H er updated medication list for this problem includes: Atorvastatin 80 Mg Tablet (Atorvastatin) ..... 1 tablet once a day Zetia 10 Mg Tablet (Ezetimibe) ..... 1 tablet once a day Agustina Franks NP [id number],S,E cho 12/07 with EF 55%. Wll repeat in 2 years. Agustina Franks CHILD LIFE SPECIALIST [id number],S,C ontinues to smoke. Counseled on cessation. Continues inhaler as needed. Repeat PFTs in one year. Agustina Franks NP [id number],C, R eports restless sleep recently. Last sleep study 2019 was negative for SARAHY. Will repeat Samy Nash [id number],C, d [facility] S VIOLETTE ENCOURAGED TO STOP SMOKING; SMOKING CESSATION TECHNIQUES DISCUSSED. Samy Nash [id number],C, H er updated medication list for this problem includes: Atorvastatin 80 Mg Tablet (Atorvastatin) ..... 1 tablet once a day Zetia 10 Mg Tablet (Ezetimibe) ..... 1 tablet once a day Samy Nash [id number],C, N o recurrence Samy Nash [id number],C, O rders: F VC - 08313 (12640) F RC - 46089 (88188) D LCO - 74147 (51500) Samy Nash [id number],C, B P fluctuating since last seen. Reviewed sodium restriction and recommended she get an automatic machine, as the wrist device is likely giving inaccurate readings. Sammy repeat echo. BP today: 110/60 P rior BP: 104/60 (03/04/2021) Labs Reviewed: C reat: 0.78 (03/08/2021) C hol: 250 (03/08/2021) HDL: 40 (03/08/2021) Samy Nash [id number],C, O rders: C omplete Echo (CPT-34583) echo 12/2019 CONCLUSIONS: 1 . Normal left ventricular systolic function. Normal left ventricular size. Normal left ventricular wall thickness. Normal left ventricular diastolic function. Normal E/E` 6.7. Left ventricular ejection fraction is measured at 55 %. 2 . There is non-specific thickening of the mitral valve leaflets. There is trace physiologic mitral valve regurgitation. 3 . The tricuspid valve is normal in appearance and function. There is trace physiologic tricuspid valve regurgitation. IVC is normal in size with normal respiratory response. Unable to adequately assess the RVSP. 4 . Normal pericardium with no pericardial or pleural effusion. 5 . Normal aortic root size. Samy Nash [id number],Noa, S VIOLETTE ENCOURAGED TO STOP SMOKING; SMOKING CESSATION TECHNIQUES DISCUSSED. Her updated medication list for this problem includes: Airduo Respiclick 232/14 232-14 Mcg/act Inh Aepb (Fluticasone-salmeterol) ..... 1 puff twice daily Albuterol Sulfate (2.5 Mg/3ml) 0.083% Inhalation Nebulization Solution (Albuterol sulfate) ..... One puff three times a day P FTS 12/2019 Conclusions: Although there is airway obstruction and a diffusion defect suggesting emphysema, the absence of overinflation is inconsistent with that diagnosis. Order Note: Order Note: Pulmonary Function Diagnosis: Order Note: Minimal Obstructive Airways Disease Order Note: Moderate Diffusion Defect Order Note: Minimal changes in FEV1 when compared to previous study. Samy Nash [id number],S, O rders: T obacco cessation counseling, >10minutes (00602) [facility] [place] ENCOURAGED TO STOP SMOKING; SMOKING CESSATION TECHNIQUES DISCUSSED. Samy Nash [id number],B, L DL 135 12/2020. L DL 169 08/2020 h as been on 80 lipitor and zetia 10 once daily Orders: L IPID PANEL (5799) Her updated medication list for this problem includes: Atorvastatin 80 Mg Tablet (Atorvastatin) ..... 1 tablet once a day Zetia 10 Mg Tablet (Ezetimibe) ..... 1 tablet once a day Samy Nash [id number],B, O rders: C omplete Echo (CPT-15659) echo 12/2019 CONCLUSIONS: 1 . Normal left ventricular systolic function. Normal left ventricular size. Normal left ventricular wall thickness. Normal left ventricular diastolic function. Normal E/E` 6.7. Left ventricular ejection fraction is measured at 55 %. 2 . There is non-specific thickening of the mitral valve leaflets. There is trace physiologic mitral valve regurgitation. 3 . The tricuspid valve is normal in appearance and function. There is trace physiologic tricuspid valve regurgitation. IVC is normal in size with normal respiratory response. Unable to adequately assess the RVSP. 4 . Normal pericardium with no pericardial or pleural effusion. 5 . Normal aortic root size. Samy Nash [id number],W, O rders: S tress Routine (CPT-80560) C omplete Echo (CPT-96796) C XR- PA/Lat (CPT-91498) STRONGLY ENCOURAGED TO STOP SMOKING; SMOKING CESSATION TECHNIQUES DISCUSSED. Samy Nash [id number],B, O rders: C OMPREHENSIVE METABOLIC PANEL, W/EGFR (26929) 9 9214 MOD 30-39min (CPT-49147) F VC - 53486 (41398) F RC - 62319 (96928) D LCO - 21328 (94470) Samy Nash [id number],C, d aily smoker [facility] S VIOLETTE ENCOURAGED TO STOP SMOKING; SMOKING CESSATION TECHNIQUES DISCUSSED. Orders: T obacco cessation counseling, 3-10minutes (06333) Samy Nash [id number],W, L DL 169 08/2020 h as been on 80 lipitor and zetia 10 once daily Orders: L IPID PANEL (3183) Her updated medication list for this problem includes: Zetia 10 Mg Oral Tablet (Ezetimibe) ..... One tab. daily, in addition to statin Atorvastatin Calcium 80 Mg Oral Tablet (Atorvastatin calcium) ..... One tab daily. increased dose. Samy Nash [id number],S, S VIOLETTE ENCOURAGED TO STOP SMOKING; SMOKING CESSATION TECHNIQUES DISCUSSED. Her updated medication list for this problem includes: Airduo Respiclick 232/14 232-14 Mcg/act Inh Aepb (Fluticasone-salmeterol) ..... 1 puff twice daily Albuterol Sulfate (2.5 Mg/3ml) 0.083% Inhalation Nebulization Solution (Albuterol sulfate) ..... One puff three times a day O rders: F VC - 57924 (97480) F RC - 67074 (51482) D LCO - 14251 (42704) PFTS 12/2019 Conclusions: Although there is airway obstruction and a diffusion defect suggesting emphysema, the absence of overinflation is inconsistent with that diagnosis. Order Note: Order Note: Pulmonary Function Diagnosis: Order Note: Minimal Obstructive Airways Disease Order Note: Moderate Diffusion Defect Order Note: Minimal changes in FEV1 when compared to previous study. Samy Nash [id number],B, O rders: C omplete Echo (CPT-34626) echo 12/2019 CONCLUSIONS: 1 . Normal left ventricular systolic function. Normal left ventricular size. Normal left ventricular wall thickness. Normal left ventricular diastolic function. Normal E/E` 6.7. Left ventricular ejection fraction is measured at 55 %. 2 . There is non-specific thickening of the mitral valve leaflets. There is trace physiologic mitral valve regurgitation. 3 . The tricuspid valve is normal in appearance and function. There is trace physiologic tricuspid valve regurgitation. IVC is normal in size with normal respiratory response. Unable to adequately assess the RVSP. 4 . Normal pericardium with no pericardial or pleural effusion. 5 . Normal aortic root size. Samy Nash Electrophysiology:wi ll check chest x ray for further evaluation, she has cough now [facility] Electrophysiology: E cho showed normal EF. [facility] Electrophysiology: E cho EF nl from recent echo [facility] Electrophysiology: B P today: 130/80 P rior BP: 105/74 (09/18/2022) Labs Reviewed: C reat: 0.78 (03/08/2021) C hol: 250 (03/08/2021) HDL: 40 (03/08/2021) [facility] Cardiology:Echo show ed normal EF. She was not able to undergo exercise stress due to intolerance to exertion. Her sxs are stemming from her pulmonary process, will check PFTs [facility] Cardiology: H er updated medication list for this problem includes: Atorvastatin 80 Mg Tablet (Atorvastatin) ..... 1 tablet once a day Zetia 10 Mg Tablet (Ezetimibe) ..... 1 tablet once a day [facility] Cardiology:Patient w as advised to stop smoking. [facility] Cardiology: C ontinues to smoke. Counseled on cessation. Continues inhaler as needed. S he has significant SOB on minimal exertion, attributable to her lung process. W ill check PFTs [facility] Cardiology:Echo EF nl from recen t echo [facility] Cardiology: B P today: 105/74 P rior BP: 110/79 (08/07/2022) Labs Reviewed: C reat: 0.78 (03/08/2021) C hol: 250 (03/08/2021) HDL: 40 (03/08/2021) Simba [facility] Electrophysiology:wi ll check VQ scan, stress test, ECHO, 48hr holter, labs, Annika Garcia NP Electrophysiology:CH OL: 250 (03/08/2021) HDL: 40 (03/08/2021) Her updated medication list for this problem includes: Atorvastatin 80 Mg Tablet (Atorvastatin) ..... 1 tablet once a day Zetia 10 Mg Tablet (Ezetimibe) ..... 1 tablet once a day will check fasting lipid panel Annika Garcia NP Electrophysiology: B P today: 110/79 P rior BP: 111/68 (01/02/2022) Labs Reviewed: C reat: 0.78 (03/08/2021) C hol: 250 (03/08/2021) HDL: 40 (03/08/2021) Annika Garcia NP Electrophysiology:wi l check 48hr monitor, echo, routine stress test, sleep study, VQ scan Annika aGrcia NP Electrophysiology:hx of pe. pt reports similar symptoms of SOB, chest pain radiating to L arm/side of body. will check VQ scan. echo, d-dimer, pt/ptt. Annika Mgbasil CHILD LIFE SPECIALIST Electrophysiology:en couraged strict cessation of cigarettes. Agustina Franks ANANTH Electrophysiology: H er updated medication list for this problem includes: Atorvastatin 80 Mg Tablet (Atorvastatin) ..... 1 tablet once a day Zetia 10 Mg Tablet (Ezetimibe) ..... 1 tablet once a day Agustina Golden [facility] Electrophysiology:Ec ho 12/07 with EF 55%. Wll repeat in 2 years. Agustina Golden [place] Electrophysiology:Co ntinues to smoke. Counseled on cessation. Continues inhaler as needed. Repeat PFTs in one year. Agustina Golden [place] Electrophysiology: R eports restless sleep recently. Last sleep study 2018 was negative for SARAHY. Will repeat Samy Saad Electrophysiology: d aily smoker [facility] lights S TRONGLY ENCOURAGED TO STOP SMOKING; SMOKING CESSATION TECHNIQUES DISCUSSED. Samy Nash Electrophysiology: H er updated medication list for this problem includes: Atorvastatin 80 Mg Tablet (Atorvastatin) ..... 1 tablet once a day Zetia 10 Mg Tablet (Ezetimibe) ..... 1 tablet once a day Jim[place] Saad Electrophysiology: N o recurrence Srinathamber Saad Electrophysiology: O rders: F VC - 38799 (10659) F RC - 99006 (85771) D LCO - 42307 (14033) [place] Saad Electrophysiology: B P fluctuating since last seen. Reviewed sodium restriction and recommended she get an automatic machine, as the wrist device is likely giving inaccurate readings. Sammy repeat echo. BP today: 110/60 P rior BP: 104/60 (03/04/2021) Labs Reviewed: C reat: 0.78 (03/08/2021) C hol: 250 (03/08/2021) HDL: 40 (03/08/2021) Samy Nash Electrophysiology: O rders: C omplete Echo (CPT-89044) echo 12/2019 CONCLUSIONS: 1 . Normal left ventricular systolic function. Normal left ventricular size. Normal left ventricular wall thickness. Normal left ventricular diastolic function. Normal E/E` 6.7. Left ventricular ejection fraction is measured at 55 %. 2 . There is non-specific thickening of the mitral valve leaflets. There is trace physiologic mitral valve regurgitation. 3 . The tricuspid valve is normal in appearance and function. There is trace physiologic tricuspid valve regurgitation. IVC is normal in size with normal respiratory response. Unable to adequately assess the RVSP. 4 . Normal pericardium with no pericardial or pleural effusion. 5 . Normal aortic root size. Jimamber Saad Electrophysiology 13 : S TRONGLY ENCOURAGED TO STOP SMOKING; SMOKING CESSATION TECHNIQUES DISCUSSED. Her updated medication list for this problem includes: Airduo Respiclick 232/14 232-14 Mcg/act Inh Aepb (Fluticasone-salmeterol) ..... 1 puff twice daily Albuterol Sulfate (2.5 Mg/3ml) 0.083% Inhalation Nebulization Solution (Albuterol sulfate) ..... One puff three times a day P FTS 12/2019 Conclusions: Although there is airway obstruction and a diffusion defect suggesting emphysema, the absence of overinflation is inconsistent with that diagnosis. Order Note: Order Note: Pulmonary Function Diagnosis: Order Note: Minimal Obstructive Airways Disease Order Note: Moderate Diffusion Defect Order Note: Minimal changes in FEV1 when compared to [facility] study. [facility] : O rders: T obacco cessation counseling, >10minutes (64762) daily smoker [facility] S TRONGLY ENCOURAGED TO STOP SMOKING; SMOKING CESSATION TECHNIQUES DISCUSSED. [facility] 13 : L DL 135 12/2020. L DL 169 08/2020 h as been on 80 lipitor and zetia 10 once daily Orders: L IPID PANEL (0384) Her updated medication list for this problem includes: Atorvastatin 80 Mg Tablet (Atorvastatin) ..... 1 tablet once a day Zetia 10 Mg Tablet (Ezetimibe) ..... 1 tablet once a day Samy Saad Electrophysiology 13 : O rders: C omplete Echo (CPT-43279) echo 12/2019 CONCLUSIONS: 1 . Normal left ventricular systolic function. Normal left ventricular size. Normal left ventricular wall thickness. Normal left ventricular diastolic function. Normal E/E` 6.7. Left ventricular ejection fraction is measured at 55 %. 2 . There is non-specific thickening of the mitral valve leaflets. There is trace physiologic mitral valve regurgitation. 3 . The tricuspid valve is normal in appearance and function. There is trace physiologic tricuspid valve regurgitation. IVC is normal in size with normal respiratory response. Unable to adequately assess the RVSP. 4 . Normal pericardium with no pericardial or pleural effusion. 5 . Normal aortic root size. Samy Nash Electrophysiology 13 : O rders: S tress Routine (CPT-56637) C omplete Echo (CPT-11456) C XR- PA/Lat (CPT-85080) STRONGLY ENCOURAGED TO STOP SMOKING; SMOKING CESSATION TECHNIQUES DISCUSSED. Samy Nash Electrophysiology-pl ease bill EKG and fu [address] Durant: O rders: C OMPREHENSIVE METABOLIC PANEL, W/EGFR (81804) 9 9214 MOD 30-39min (CPT-88473) F VC - 13158 (47996) F RC - 59656 (32295) D LCO - 53398 (10074) Samy Nash Electrophysiology-pl ease bill EKG and fu [address] Durant: d aily smoker [place] [facility] S VIOLETTE ENCOURAGED TO STOP SMOKING; SMOKING CESSATION TECHNIQUES DISCUSSED. Orders: T obacco cessation counseling, 3-10minutes (69140) Samy Nash Electrophysiology-pl ease bill EKG and fu [address] Durant: L DL 169 08/2020 h as been on 80 lipitor and zetia 10 once daily Orders: L IPID PANEL (9049) Her updated medication list for this problem includes: Zetia 10 Mg Oral Tablet (Ezetimibe) ..... One tab. daily, in addition to statin Atorvastatin Calcium 80 Mg Oral Tablet (Atorvastatin calcium) ..... One tab daily. increased dose. Samy Nash Electrophysiology-pl ease bill EKG and fu [address] Durant: Jabari OAKES ENCOURAGED TO STOP SMOKING; SMOKING CESSATION TECHNIQUES DISCUSSED. Her updated medication list for this problem includes: Airduo Respiclick 232/14 232-14 Mcg/act Inh Aepb (Fluticasone-salmeterol) ..... 1 puff twice daily Albuterol Sulfate (2.5 Mg/3ml) 0.083% Inhalation Nebulization Solution (Albuterol sulfate) ..... One puff three times a day Orders: F VC - 36152 (07311) F RC - 10260 (89038) D LCO - 99622 (88214) PFTS 12/2019 Conclusions: Although there is airway obstruction and a diffusion defect suggesting emphysema, the absence of overinflation is inconsistent with that diagnosis. Order Note: Order Note: Pulmonary Function Diagnosis: Order Note: Minimal Obstructive Airways Disease Order Note: Moderate Diffusion Defect Order Note: Minimal changes in FEV1 when compared to previous study. Samy Saad Electrophysiology-[facility] bill EKG and fu [address] Durant: O rders: C omplete Echo (CPT-20068) echo 12/2019 CONCLUSIONS: 1 . Normal left ventricular systolic function. Normal left ventricular size. Normal left ventricular wall thickness. Normal left ventricular diastolic function. Normal E/E` 6.7. Left ventricular ejection fraction is measured at 55 %. 2 . There is non-specific thickening of the mitral valve leaflets. There is trace physiologic mitral valve regurgitation. 3 . The tricuspid valve is normal in appearance and function. There is trace physiologic tricuspid valve regurgitation. IVC is normal in size with normal respiratory response. Unable to adequately assess the RVSP. 4 . Normal pericardium with no pericardial or pleural effusion. 5 . Normal aortic root size. [facility] Card[facility] done n:no recurrnece n eg stress 09/2018 [facility] Cardiology done n: S TRONGLY ENCOURAGED TO STOP SMOKING; SMOKING CESSATION TECHNIQUES DISCUSSED. [facility] Cardiology done n: H er updated medication list for this problem includes: Zetia 10 Mg Oral Tablet (Ezetimibe) ..... One tab. daily, in addition to statin Atorvastatin Calcium 80 Mg Oral Tablet (Atorvastatin calcium) ..... One tab daily. increased dose. Orders: L IPID PANEL (3780) H EPATIC FUNCTION PANEL (33116) [place] Saad Cardiology done n: l ast EF 55% improved from 45% 11/2018 Echo 12/2019 CONCLUSIONS: 1 . Normal left ventricular systolic function. Normal left ventricular size. Normal left ventricular wall thickness. Normal left v entricular diastolic function. Normal E/E` 6.7. Left ventricular ejection fraction is measured at 55 %. 2 . There is non-specific thickening of the mitral valve leaflets. There is trace physiologic mitral valve regurgitation. 3 . The tricuspid valve is normal in appearance and function. There is trace physiologic tricuspid valve regurgitation. IVC is n ormal in size with normal respiratory response. Unable to adequately assess the RVSP. 4 . Normal pericardium with no pericardial or pleural effusion. 5 . Normal aortic root size Orders: 9 12 Minor 10-19min (CPT-02971) C omplete Echo (CPT-59312) Jimtiffanyamber Nash Cardiology done n: O rders: F VC - 59733 (37901) F RC - 93655 (97725) D LCO - 35192 (50722) Her updated medication list for this problem includes: Airduo Respiclick 232/14 232-14 Mcg/act Inh Aepb (Fluticasone-salmeterol) ..... 1 puff twice daily Albuterol Sulfate (2.5 Mg/3ml) 0.083% Inhalation Nebulization Solution (Albuterol sulfate) ..... One puff three times a day PFT 12/2019 Conclusions: Although there is airway obstruction and a diffusion defect suggesting emphysema, the absence of overinflation is inconsistent with that diagnosis. Order Note: Order Note: Pulmonary Function Diagnosis: Order Note: Minimal Obstructive Airways Disease Order Note: Moderate Diffusion Defect Order Note: Minimal changes in FEV1 when compared to previous study. Samy Nash Electrophysiology - :recheck pfts in 6 months pft 12/2019: P ulmonary Function Diagnosis: M inimal Obstructive Airways Disease M oderate Diffusion Defect M inimal changes in FEV1 when compared to previous study. walked 1500ft in 6 minutes 12/2019 Orders: C OMPREHENSIVE METABOLIC PANEL, W/EGFR (39125) C BC (H/H, RBC, INDICES, WBC, PLT) (1759) T SH, free T4, total T3 (7444) T obacco cessation counseling > 10 minutes (CPT-17966) F VC - 54203 (02456) F RC - 86145 (79779) D LCO - 58332 (33335) S chedule Followup (*) Samy Nash Electrophysiology - :STRONGLY ENCOURAGED TO STOP SMOKING; SMOKING CESSATION TECHNIQUES DISCUSSED. P t notes that nicotine patches have not been effective in the past, likewise with nicotine gum. Had extensive discussion about hazards of tobacco smoking. Orders: T obacco cessation counseling > 10 minutes (CPT-63146) Samy Nash Electrophysiology - :last LDL 183 in 10/2019 i ncrease atorvastatin to 80mg one tab once daily r eviewed dietary guidelines with the patient. Orders: L IPID PANEL (1969) Her updated medication list for this problem includes: Atorvastatin Calcium 80 Mg Oral Tablet (Atorvastatin calcium) ..... One tab daily. increased dose. CHOL: 246 (11/04/2019) HDL: 34 (11/04/2019) Samy Nash Electrophysiology - :last EF 55% improved from 45% 11/2018 Echo 12/2019 CONCLUSIONS: 1 . Normal left ventricular systolic function. Normal left ventricular size. Normal left ventricular wall thickness. Normal left v entricular diastolic function. Normal E/E` 6.7. Left ventricular ejection fraction is measured at 55 %. 2 . There is non-specific thickening of the mitral valve leaflets. There is trace physiologic mitral valve regurgitation. 3 . The tricuspid valve is normal in appearance and function. There is trace physiologic tricuspid valve regurgitation. IVC is n ormal in size with normal respiratory response. Unable to adequately assess the RVSP. 4 . Normal pericardium with no pericardial or pleural effusion. 5 . Normal aortic root size. E lectronically Signed By: Ijeoma Oconnor 2 020-06- 15:17:05 CDT Orders: S chedule Followup (*) Samy Nash Cardiology [facility] Cardiology [facility] Cardiology [facility] Cardiology [facility] Electrophysiology [facility] Electrophysiology:ad vised to quit [facility] Electrophysiology [facility] Electrophysiology: H er updated medication list for this problem includes: Airduo Respiclick 232/14 232-14 Mcg/act Inh Aepb (Fluticasone-salmeterol) ..... 1 puff twice daily Albuterol Sulfate (2.5 Mg/3ml) 0.083% Inhalation Nebulization Solution (Albuterol sulfate) ..... One puff three times a day [facility] Electrophysiology: H er updated medication list for this problem includes: Atorvastatin Calcium 20 Mg Oral Tablet (Atorvastatin calcium) ..... Take one daily [facility] Electrophysiology [facility] Electrophysiology [facility] Electrophysiology [facility] Electrophysiology fo llow up :The Patient was reencouraged to stop smoking. Extensive education was done on the need to stop smoking Kavin Hughes Electrophysiology follow up Lucas pressleyy Lamontharshad Electrophysiology fo llow up : H er updated medication list for this problem includes: Atorvastatin Calcium 20 Mg Oral Tablet (Atorvastatin calcium) ..... Take one daily Kavin Hughes Electrophysiology fo llow up :pt continues to wheeze and cough. Extensive education on the need to stop smoking was done. Kavin Hughes Electrophysiology fo llow up :Will not put on coreg or cash inhibitor due to hypotension. Kavin Hughes Electrophysiology:advised to emma t [facility] Electrophysiology: O rders: 9 9213 LTD. Complex (CPT-36686) C omplete Echo (CPT-73511) [facility] Electrophysiology: O rders: 9 9213 LTD. Complex (CPT-93674) C omplete Echo (CPT-79540) [facility] Electrophysiology: O rders: 9 9213 LTD. Complex (CPT-96594) C omplete Echo (CPT-73272) [facility] Electrophysiology: H er updated medication list for this problem includes: Atorvastatin Calcium 20 Mg Oral Tablet (Atorvastatin calcium) ..... Take one daily [facility] Electrophysiology:pt continues to wheeze H er updated medication list for this problem includes: Airduo Respiclick 232/14 232-14 Mcg/act Inh Aepb (Fluticasone-salmeterol) ..... 1 puff twice daily Albuterol Sulfate (2.5 Mg/3ml) 0.083% Inhalation Nebulization Solution (Albuterol sulfate) ..... One puff three times a day Orders: 9 9213 LTD. Complex (CPT-39239) C omplete Echo (CPT-05426) Sae Mahmood Electrophysiology:Wi ll not put on coreg or cash inhibitor due to hypotension. Orders: E KG (CPT-90445) 9 9213 LTD. Complex (CPT-52569) C omplete Echo (CPT-06041) Sae Mahmood Electrophysiology: n o SARAHY on sleep study Ijeoma Morataya MD Electrophysiology: P atient smokes everyday. S TRONGLY ENCOURAGED TO STOP SMOKING; SMOKING CESSATION TECHNIQUES DISCUSSED. Ijeoma Morataya MD Electrophysiology: Zuleima maier CP today. [facility] ER visit on 10/14/18 for CP, r/o for PA. Patient underwent nuclear stress test on 10/14/18, which was negative for ischemia, EF 54%. 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 S TRONGLY ENCOURAGED TO STOP SMOKING; SMOKING CESSATION TECHNIQUES DISCUSSED. Omar Hayward Electrophysiology: D livier CP today. [facility] ER visit on 10/14/18 for CP, r/o for PA. Patient underwent nuclear stress test on 10/14/18, which was negative for ischemia, EF 54%. e cho today showed mild hypokinesis Omar Hayward Cardiology hospital follow up: P atient smokes everyday. S TRONGLY ENCOURAGED TO STOP SMOKING; SMOKING CESSATION TECHNIQUES DISCUSSED. Anupam Barkley Cardiology hospital follow up: [place] home sleep study. Orders: S leep Study Home (CPT-88552) 9 9205 HIGH Complex (CPT-08203) S chedule Followup (*) Anupam Barkley Cardiology hospital follow up: [place] PFTS. Orders: F VC - 40197 (91873) F RC - 66335 (39572) D LCO - 79359 (65937) 9 9205 HIGH Complex (CPT-22251) S chedule Followup (*) Anupam Barkley Cardiology hospital follow up: Zuleima maier CP today. [facility] ER visit on 10/14/18 for CP, r/o for PA. Patient underwent nuclear stress test on 10/14/18, which was negative for ischemia, EF 54%. & #13;Check echo doppler to assess LV function. Orders: 9 9205 HIGH Complex (CPT-60872) S chedule Followup (*) Noa omplete Echo (CPT-24070) Anupam Barkley Date Name CXR- PA/Lat DLCO - 83587 FRC - 39191 FVC - 04443 MAGNESIUM PROTHROMBIN TIME WIT H INR Partial Thromboplast in Time, Activated D-DIMER, QUANTITATIV E IRON AND TOTAL IRON BINDING CAPACITY FERRITIN CBC (INCLUDES DIFF/P LT) LIPID PANEL TSH, free T4, total T3 PROBNP, N TERMINAL COMPREHENSIVE METABO LIC PANEL, W/EGFR Holter Monitor 48 hr Sleep Study Home Stress Routine Complete Echo NM, Lung Perfusion Holter Monitor 48 hr DLCO - 49115 FRC - 21337 FVC - 25486 Sleep Study Home Monitor - Telemetry (Mobile Cardiac) Complete Echo DLCO - 92243 FRC - 34713 FVC - 95878 T-4, FREE TSH, 3RD GENERATION HEPATIC FUNCTION TIERNEY EL LIPID PANEL TSH, free T4, total T3 COMPREHENSIVE METABO LIC PANEL, W/EGFR LIPID PANEL CXR- PA/Lat Complete Echo Stress Routine EKG DLCO - 16421 FRC - 47802 FVC - 58575 Complete Echo COMPREHENSIVE METABO LIC PANEL, W/EGFR LIPID PANEL Complete Echo DLCO - 78186 FRC - 33721 FVC - 43998 HEPATIC FUNCTION TIERNEY EL LIPID PANEL DLCO - 08389 FRC - 62374 FVC - 56680 TSH, free T4, total T3 CBC (H/H, RBC, INDIC ES, WBC, PLT) COMPREHENSIVE METABO LIC PANEL, W/EGFR LIPID PANEL EKG THYROID PANEL LIPID PANEL COMPREHENSIVE METABO LIC PANEL, W/EGFR CBC (INCLUDES DIFF/P LT) Complete Echo DLCO - 98641 FRC - 33290 FVC - 23884 LIPID PANEL COMPREHENSIVE METABO LIC PANEL, W/EGFR DLCO - 31695 FRC - 87275 FVC - 58620 6 minute walk test Complete Echo Complete Echo DLCO - 86337 FRC - 68169 FVC - 70240 Complete Echo LIPID PANEL COMPREHENSIVE METABO LIC PANEL, W/EGFR DLCO - 28316 FRC - 81216 FVC - 95268 Complete Echo Sleep Study Home DLCO - 96600 FRC - 88219 FVC - 64051 HISTORY OF PROCEDURES Procedure Date Procedure Name Provider Procedure Notes S tatus Spirometry Ijeoma prasad MD completed FVC / MVV with bronchodilator - 02956 Ijeoma Morataya MD completed Ambulatory Oximetry Ijeoma hoover MD completed FRC - 17392 Ijeoma prasad MD completed SpO2 w/o 6min walk/titration Ijeoma Morataya MD completed SVC - 32770 Ijeoma prasad MD completed DLCO - 62774 Ijeoma prasad MD completed EKG Ijeoma prasad MD completed EKG Ijeoma prasad MD completed EKG Ijeoma prasad MD completed Spirometry Ijeoma prasad MD completed FVC / MVV with bronchodilator - 84158 Iejoma Morataya MD completed BLOOD COUNT HEMOGLOBIN Ijeoma norris MD completed FRC - 23567 Ijeoma prasad MD completed SpO2 w/o 6min walk/titration Ijeoma Morataya MD completed SVC - 07006 Ijeoma prasad MD completed DLCO - 05220 Ijeoma prasad MD completed EKG Ijeoma prasad MD completed EKG Ijeoma prasad MD completed EKG Ijeoma prasad MD completed EKG Ijeoma prasad MD completed Schedule Followup Ijeoma richardson MD 6 months completed EKG Ijeoma prasad MD completed FVC / MVV with bronchodilator and 6min walk/titration Ijeoma Morataya MD completed BLOOD COUNT HEMOGLOBIN Ijeoma norris MD completed FRC - 16747 Ijeoma prasad MD completed DLCO - 84717 Ijeoma prasad MD completed EKG Ijeoma prasad MD completed EKG Ijeoma prasad MD completed FVC / MVV - 78818 Ijeoma richardson MD completed FRC - 20401 Ijeoma prasad MD completed SpO2 w/o 6min walk/titration Ijeoma Morataya MD completed DLCO - 58280 jIeoma prasad MD completed EKG Ijeoma prasad MD completed EKG Ijeoma prasad MD completed EKG Ijeoma prasad MD completed FVC / MVV with bronchodilator - 06828 Ijeoma Morataya MD completed BLOOD COUNT HEMOGLOBIN Ijeoma norris MD completed FRC - 00254 Ijeoma prasad MD completed SpO2 w/o 6min walk/titration Ijeoma Morataya MD completed DLCO - 35136 Ijeoma prasad MD completed Schedule Followup Ijeoma richardson MD in 1 mo completed
--- OUTSIDE RECORDS SUMMARY | 2024-08-11 13:54 | XMS_ITS | Encounter Summary ---
Author Organization [facility] Healthcare Address [address] [place] [address] Care Team Providers Care Production Aide Name Role Phone Alicia Cueva Primary Care Provider [phone] Encounter Details Date Type Department Care Team (Late st Contact Info) Description 11/08/2023 [facility] Post Discharge Follow up phone call [facility] [address] [place] [address] Sharon Arceo RN Social History Tobacco Use Types Packs/Day Years Used Date Smoking Tobacco: Every Day Cigarettes Vaping Passive Smoke Exposure: Current Smokeless Tobacco: Never Comments:Prior 1.5 pack per day smoker Vapes everyday while at work, 5days per week Alcohol Use Standard Drinks/Week Comments Yes 0 (1 standard drink = 0.6 oz pur e alcohol) New Years only AUDIT-C Answer Date Recorded Q1: How often do you have a drink containing alc ohol? Monthly or less 09/24/2023 Average Number of Drinks Not on file 024 Frequency of Binge Drinking Not on file 02/2024 Hunger Vital Sign Answer Date Recorded Within the past 12 months, y ou worried that your food would run out before you got the money to buy more. Sometimes true Within the past 12 months, t he food you bought just didn't last and you didn't have money to get more. Never true 02/2023 Personal Safety Answer Date Recorded Have you ever been in or are you currently in a harmful physical or emotional relationship or is someone making you feel afraid or unsafe? 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 Not on file Not on file Not on file documented as of this encounter Plan of Treatment Upcoming Encounters Date Type Department Care Team (Latest Contact Info) Description 02/02/2025 11:00 AM CDT Hospital Encounter [facility] [address] [place] [address] Janet Em MD [address] [facility] [place] [address] 02/02/2025 11:00 AM CDT - 02/02/2025 11:55 AM CDT Surgery [address] [address] Janet Em MD [address] [facility] [address] [address] [place] [address] ESOPHAGOGASTRODUODENOSCOPY Scheduled Procedures Name Priority Associated Diagnoses Date/Ti me ESOPHAGOGASTRODUODENOSCOPY Diarrhea, unspecified type Esophagitis 02/02/2025 11:00 AM CDT COLONOSCOPY Diarrhea, unspecified type Esophagitis 02/02/2025 11:00 AM CDT documented as of this encounter Visit Diagnoses Not on filedocumented in this encounter Additional Health Concerns Infection Onset Date Last Indicated Resolved Time C. difficile suspected 04/04/2024 04/29/202404/05 3:06 AM CDT C. difficile suspected 04/29/2024 04/29/202404/29 11:20 AM CDT documented as of this encounter Care Teams Production Aide Relationship Specialty Start Date End Date Alicia Cueva PA [address] [place] [id number] PCP - General Physician [employer] We[employer] 05/13/22 documented as of this encounter
--- OUTSIDE RECORDS SUMMARY | 2024-08-11 13:54 | XMS_ITS | Referral Summary ---
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 Medicine 8th [place] [address] [place] [phone] Prasad Lopez MD 5 2:00 PM HORSE SHOER Office Visit [facility] Sleep Medicine at [address] [place] [address] Jody Spencer MD Hypersomnolence (Primary Dx); Snoring; Overweight; Insomnia, unspecified type 5 Telephone [facility] Cardiology [address] [place] [address] Medicine 8th [place] [address] [place] [phone] Prasad Lopez MD Hypotension; Med Management (Amlodipine held) 5 1:13 PM HORSE SHOER - 5 11:59 PM HORSE SHOER Hospital Encounter [facility] [address] [place] [address] Discharge Disposition: Discharge to home or self care 5 1:13 PM HORSE SHOER - 5 11:59 PM HORSE SHOER Hospital Encounter [facility] [address] [place] [address] Discharge Disposition: Discharge to home or self care 5 1:13 PM HORSE SHOER - 5 11:59 PM HORSE SHOER Hospital Encounter [facility] [address] [place] [address] Other chest pain; Coronary artery disease involving [place] coronary artery of [place] heart without angina pectoris; Precordial chest pain; Dyspnea on exertion Discharge Disposition: Discharge to home or self care 5 Telephone [facility] Gastroenterology at [place] [address] [facility] [address] [place] [phone] Hailey Moran Schedule EGD & Colonoscopy 5 Telephone [facility] [address] [facility] [address] [place] [address] Annika Mackenzie MA 5 9:00 AM HORSE SHOER - 5 9:55 AM HORSE SHOER Surgery [address] [address] Janet Em MD ESOPHAGOGASTRODUODENOSCOPY ESOPHAGEAL GUIDE WIRE 5 9:26 AM HORSE SHOER Anesthesia Event [address] [address] Jonah Stahl MD Zirkelbach, Cecilia A., CRNA 5 7:59 AM HORSE SHOER - 5 10:46 AM HORSE SHOER Hospital Encounter [address] [address] Janet Em MD Encounter for screening colonoscopy; Dysphagia, unspecified type; Odynophagia; Colitis; Globus sensation; Diarrhea of presumed infectious origin Discharge Disposition: Discharge to home or self care 4 Telephone [facility] Scheduling [address] [facility] [place] [address] Prasad Lopez MD 4 10:00 AM HORSE SHOER Office Visit [facility] Cardiology [address] [facility] [address] [place] [address] Prasad Lopez MD Other chest pain (Primary Dx); Coronary artery disease involving [place] coronary artery of [place] heart without angina pectoris; Precordial chest pain; Dyspnea on exertion 4 6:00 AM HORSE SHOER - 4 11:59 PM HORSE SHOER Hospital Encounter [facility] [address] [place] [address] Hypersomnolence Discharge Disposition: Discharge to home or self care 4 7:00 PM HORSE SHOER - 4 11:59 PM HORSE SHOER Hospital Encounter [facility] [address] [place] [address] SARAHY (obstructive sleep apnea ) Discharge Disposition: Discharge to home or self care 4 Telephone [facility] Gastroenterology at [place] [address] [facility] [address] [place] [address] Carmina Cartagena MA 4 Telephone [facility] Cardiology [address] [place] [address] 8th [place] [address] [place] [address] Prasad Lopez MD Appointment 4 11:00 AM HORSE SHOER - 4 12:05 PM HORSE SHOER Surgery [facility]ter[facility] [address] [place] [address] Guerrero Barnes MD LEFT HEART CATHETERIZATION WITH CORONARY ANGIOGRAPHY AND WITH OR WITHOUT LEFT VENTRICULOGRAM [id number] 4 3:56 AM HORSE SHOER - 4 3:48 PM HORSE SHOER Emergency [facility] Acute [facility] [address] [place] [address] Peggy Munoz MD Abegunde, Veronica O., MD Quaizar, Huzaifa, MD Abnormal stress test (Primary Dx); Other chest pain Discharge Disposition: Discharge to home or self care 4 Telephone [facility] [address] [place] [address] 8th [place] [address] [place] [address] Prasad Lopez MD 4 9:00 AM HORSE SHOER Lab [facility] [address] [place] [address] Pre-operative cardiovascular examination 4 8:45 AM HORSE SHOER Office Visit [facility] Cardiology [address] [facility] [address] [place] [address] Prasad Lopez MD Pre-operative cardiovascular examination (Primary Dx) 4 8:30 AM HORSE SHOER Ancillary Procedure [facility] [address] [place] [address] [place] [phone] Precordial chest pain; Hyperlipidemia, unspecified hyperlipidemia type; Coronary artery disease, unspecified vessel or lesion type, unspecified whether angina present, unspecified whether jamestown or transplanted heart 4 7:30 AM HORSE SHOER Ancillary Procedure [facility] [address] [place] [address] [place] [phone] Precordial chest pain; Hyperlipidemia, unspecified hyperlipidemia type; Coronary artery disease, unspecified vessel or lesion type, unspecified whether angina present, unspecified whether [place] or transplanted heart 4 Telephone [facility] Gastroenterology at [address], [place] [address] Yadira Houston LPN 4 Orders Only [facility] Gastroenterology at [address], [place] [address] Janet Em MD 4 Telephone [facility] Gastroenterology at [address] [phone] Carmina Cartagena MA 4 8:30 AM HORSE SHOER Office Visit [facility] Pulmonary at [address] [phone] Cailin Bridges NP Asthma-COPD overlap syndrome (HCC) (Primary Dx); Centrilobular emphysema (HCC); Laryngopharyngeal reflux (LPR); Alpha 1-antitrypsin PiMS phenotype; Cigarette nicotine dependence without complication 4 1:15 PM HORSE SHOER Office Visit [facility] Sleep Medicine at [address] [phone] Jody Spencer MD Hypersomnia (Primary Dx); Sleep related hypoventilation in conditions classified elsewhere; Overweight; Snoring; Insomnia, unspecified type; SARAHY (obstructive sleep apnea); Hypersomnolence from Last 3 Months Allergies Active Allergy Reactions Criticality Noted Date Comments Aspirin Hives Medium Medications albuterol HFA (PROVENTIL HFA,VENTOLIN HFA,PROAIR HFA) 90 mcg/actuation inhaler Inhale 2 puffs every 6 (six) hours as needed for wheezing Active atorvastatin (LIPITOR) 80 mg tablet Take 1 tablet (80 mg total) by mouth daily 30 tablet 11 09/16/19 24 025 Active cholestyramine (QUESTRAN) 4 gram packet Take 1 packet by mouth 2 (two) times a day with meals 60 packet 12/02/19 24 025 Active fenofibrate (TRIGLIDE) 160 mg tablet Take 1 tablet (160 mg total) by mouth daily 12/14/19 24 Active clopidogreL (PLAVIX) 75 mg tablet Take 1 tablet by mouth once daily 90 tablet 3 01/10/20 24 Active mometasone-for moterol (Dulera) 200-5 mcg/actuation inhalerIndicat ions:Asthma-[place] PD overlap syndrome (HCC) Inhale 2 puffs 2 (two) times a day Rinse mouth with water after use. Do not swallow. 1 each 02/16/20 24 025 Active umeclidinium (INCRUSE ELLIPTA) 62.5 mcg/actuation blister with deviceIndicati ons:Asthma-SENIOR CORPORATE STRATEGY MANAGER D overlap syndrome (HCC) Inhale 1 puff (62.5 mcg total) daily 30 each 11 02/16/20 24 025 Active famotidine (PEPCID) 40 mg tabletIndicati ons:Laryngopha ryngeal reflux (LPR) Take 1 tablet (40 mg total) by mouth nightly 90 tablet 3 04/17/20 24 025 Active ibuprofen (ADVIL,MOTRIN) 800 mg tablet Take by mouth every 8 (eight) hours as needed 05/03/20 24 Active hydrOXYzine (ATARAX) 25 mg tablet Take 1 tablet (25 mg total) by mouth nightly 06/04/20 24 Active amLODIPine (NORVASC) 2.5 mg tablet Take 1 tablet (2.5 mg total) by mouth daily 90 tablet 3 06/19/20 24 025 Active QUEtiapine (SEROquel) 50 mg tablet Take 1 tablet (50 mg total) by mouth nightly 30 tablet 1 06/30/20 [address] (PROTONIX) 40 mg EC tablet Take 1 tablet (40 mg total) by mouth 2 (two) times a day before breakfast and dinner 180 tablet 07/20/19 25 Active metoprolol tartrate (LOPRESSOR) 25 mg immediate release tablet Take 1/2 (one-half) tablet by mouth twice daily 30 tablet 5 07/26/19 25 Active Additional Information Patient not taking.Reported on 08/07/2024 furosemide (LASIX) 40 mg tablet Take 1 tablet (40 mg total) by mouth daily as needed (for leg swelling) 07/30/19 25 Active Additional Information Patient not taking.Reported on 08/07/2024 modafiniL (PROVIGIL) 100 mg tablet Take 1 tablet (100 mg total) by mouth daily 30 tablet 1 08/07/19 25 025 Active furosemide (LASIX) 40 mg tablet Take 1 tablet (40 mg total) by mouth daily 30 tablet 11 08/12/19 24 025 Discontinued metoprolol tartrate (LOPRESSOR) 25 mg immediate release tablet Take 0.5 tablets (12.5 mg total) by mouth 2 (two) times a day 30 tablet 11 08/26/19 [address] (PROTONIX) 40 mg EC tablet Take 1 tablet (40 mg total) by mouth daily 90 tablet 09/24/19 24 025 Discontinued furosemide (LASIX) 40 mg tablet Take 1 tablet by mouth once daily 30 tablet 5 07/26/19 25 025 Discontinued Active Problems Problem Noted Date Diagnosed Date Esophagitis 07/25/2024 Hypersomnolence 07/15/2024 SARAHY (obstructive sleep apnea) 07/10/2024 Abnormal stress test 06/20/2024 Other chest pain 06/20/2024 Encounter for screening colonoscopy 04/04/2024 Odynophagia 04/04/2024 Colitis 04/04/2024 Globus sensation 04/04/2024 Somnolence 02/17/2024 Decreased hearing of right ear 02/16/2024 Assessment & Plan (04/17/2024 5:50 PM CDT): Bilateral hearing aids recommended Assessment & Plan (02/16/2024 3:05 PM CDT): New and progressive 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 She does not have established ENT and would like a current referral Alpha 1-antitrypsin PiMS phenotype 02/16/2024 Assessment & Plan (05/29/2024 9:55 AM HORSE SHOER): Last level was 149 in 2022 PFT with decrease in FEV1 Level 139 January 2024 Assessment & Plan (02/16/2024 3:06 PM CDT): Last level was 149 in 2022 PFT with decrease in FEV1 I will recheck her levels today Asthma-COPD overlap syndrome 02/16/2024 Assessment & Plan (05/29/2024 9:56 AM HORSE SHOER): Continue Dulera 200 twice daily She is aware to use this with an AeroChamber and rinse and spit after use Continue Incruse Ellipta daily Albuterol as needed only, she is aware of indications for use Continue montelukast 10 mg once daily in the evening Discussed vaccines We have discussed signs and symptoms that would require early our evaluation or change to her plan of care Assessment & Plan (02/16/2024 3:08 PM CDT): Start Dulera 200 twice daily She is aware to use this with an AeroChamber and rinse and spit after use Continue Incruse Ellipta daily Albuterol as needed only, discussed indications for use Continue montelukast 10 mg once daily in the evening I would have a low threshold to add biologics Cigarette nicotine dependence without complicati on 12/28/2023 Assessment & Plan (05/29/2024 9:59 AM HORSE SHOER): - Smoking cessation counseling and techniques reviewed at length - Avoid triggers and use distraction techniques - Participate in support groups - Information given regarding [place] [employer] Quit line: 5-690-GRWK-YES for free services - 4 minutes spent discussing cessation I have strongly encouraged NRT however she is on several psychiatric medications, varencline may not be a suitable option She is not a candidate for LDCT due to age Assessment & Plan (02/16/2024 3:09 PM CDT): - Smoking cessation counseling and techniques reviewed at length - Literature reviewed - Avoid triggers and use distraction techniques - Participate in support groups - Information given regarding [place] Tobacco Quit line: 7-709-VJVV-YES for free services - 4 minutes spent discussing cessation Assessment & Plan (12/28/2023 9:25 AM CDT): - Smoking cessation counseling and techniques reviewed at length - Avoid triggers and use distraction techniques - Information given regarding [place] Tobacco Quit line: 2-305-XAWO-YES for free services - 4 minutes spent discussing cessation Vapes nicotine containing substance 12/28/2023 Assessment & Plan (12/28/2023 9:25 AM CDT): She admits this is significantly increased in the last 3 months in particular with stressors at home and trying to cut down on cigarettes We have discussed complete cessation Laryngopharyngeal reflux (LPR) 12/28/2023 Assessment & Plan (05/29/2024 10:01 AM HORSE SHOER): Continue pantoprazole 40 mg twice daily Elevate head of bed while sleeping Avoid tight clothing and eating 2-3 hours before bed I continue to think this is the primary contributor to her respiratory symptoms, as she has daily uncontrolled GERD and wakes with a sour taste in her mouth. I have assisted her in scheduling her CT of the neck as ordered by GI and encouraged to call their office to report continued symptoms despite change in medications Assessment & Plan (04/17/2024 5:51 PM CDT): Continue Take Pantoprazole 40 mg (Protonix), 30-60 minutes prior to any other medication, food or fluids other than water Start Pepcid 40 mg at bedtime Assessment & Plan (02/16/2024 3:06 PM CDT): Continue pantoprazole 40 mg daily Elevate head of bed while sleeping Avoid tight clothing and eating 2-3 hours before bed Assessment & Plan (12/28/2023 9:25 AM CDT): Continue omeprazole 40 mg daily, she is aware to take this 30-60 minutes prior to food, fluid other than water Void triggering foods Avoid eating 2-3 hours before bed Elevate head of bed while sleeping Dental caries 12/27/2023 Assessment & Plan (04/17/2024 5:51 PM CDT): Call Oral Surgery for update on appointment Assessment & Plan (12/27/2023 8:58 AM CDT): Referral to Oral Surgery Laryngeal spasm 12/27/2023 Assessment & Plan (12/27/2023 8:58 AM CDT): Take pantoprazole 40 mg in the morning 30-60 minutes prior to any other medications, foods or fluid other than water Referral to Oral Surgery placed Continue on full liquid or extremely soft diet Laryngopharyngeal reflux discussed and Handout provided Rectal bleeding 10/11/2023 Diarrhea 10/11/2023 Centrilobular emphysema 08/13/2023 Assessment & Plan (05/29/2024 9:58 AM HORSE SHOER): PFT does not show obstruction- rather air trapping She is currently on triple therapy and has tried multiple other inhalers with no significant clinical benefit Alpha1 levels are normal Due to her continued dyspnea, consider repeat PFT and walk testing Assessment & Plan (12/28/2023 9:47 AM CDT): PFT does not show obstruction rather air trapping She is currently on triple therapy in his tried multiple inhalers with no significant clinical benefit I continue to encourage smoking and vaping cessation A1AT MS with level 149 in May 2023 Assessment & Plan (08/13/2023 11:32 AM HORSE SHOER): She has had little benefit from inhaled therapy, leading me to believe that her dyspnea is not primary pulmonary in origin. PFT shows air trapping but not obstruction. She is on triple therapy and has tried multiple inhalers. I have encouraged smoking cessation A1AT MS Level 149 with no obstruction on PFT Multiple nodules of lung 08/13/2023 Assessment & Plan (08/13/2023 10:59 AM HORSE SHOER): Resolved Dysphagia 06/24/2023 Assessment & Plan (12/27/2023 8:57 AM CDT): Take pantoprazole 40 mg in the morning 30-60 minutes prior to any other medications, foods or fluid other than water Referral to Oral Surgery placed Continue on full liquid or extremely soft diet Other dysphagia 06/24/2023 Change in voice 06/24/2023 Assessment & Plan (12/27/2023 8:58 AM CDT): Monitor for improvement with reflux therapy HLD (hyperlipidemia) 05/13/2023 Precordial chest pain 12/16/2022 Dyspnea on exertion 12/16/2022 Assessment & Plan (12/28/2023 9:49 AM CDT): This is out of proportion to her dyspnea, with further workup pulmonary causes with methacholine challenge She has had recent cardiology evaluation and continues to follow with GI Assessment & Plan (08/13/2023 11:07 AM HORSE SHOER): Her PFT shows no fixed obstriction, but she does have a good bronchodilator response May be mild asthma No significant peripheral eosinophila. Increase to high dose inhaled steroid, she will call with benefit May consider allergy testing and methacholine challenge if no improvement I have encourages smoking/vape cessation Gait disturbance 04/29/2021 Carpal tunnel syndrome, left 02/04/2021 Overview (02/04/2021): Added automatically from request for surgery [id number] Right elbow tendinitis 02/01/2021 Insomnia 09/06/2019 Resolved Problems Problem Noted Date Diagnosed Date Resolved Date Mild intermittent asthma without complication 12/28/19 24 02/16/2024 Assessment & Plan (12/28/2023 9:48 AM CDT): Although no neri obstruction was noted on pulmonary function testing she did have a 14% improvement post-bronchodilator She has been on triple therapy with Trelegy Ellipta 100 with no significant clinical benefit and although her dyspnea seems out of proportion for her pulmonary function testing we will trial Breztri 2 puffs twice daily with AeroChamber One week sample and AeroChamber provided to her today I have instructed her on use and technique. She is aware to rinse and spit after use Continue albuterol as needed only, discussed indications for use Check allergy panel and methacholine challenge History of nicotine use 08/13/202312/17 Assessment & Plan (08/13/2023 10:59 AM HORSE SHOER): - Smoking cessation counseling and techniques reviewed at length - Literature reviewed - Avoid triggers and use distraction techniques - Participate in support groups - Information given regarding [place] Tobacco Quit line: 3-022-CKPD-YES for free services - 4 minutes spent discussing cessation I have also strongly encouraged her to quit vaping Social History Tobacco Use Types Packs/Day Years Used Date Smoking Tobacco: Every Day Cigarettes 0.3 29.1 Started: 1995 Vaping Passive Smoke Exposure: Current Smokeless Tobacco: Never Tobacco Cessation:Ready to Q uit: No; Counseling Given: Yes Comments:Vapes everyday while at work, 5days per week Alcohol Use Standard Drinks/Week Comments Yes 0 (1 standard drink = 0.6 oz pur e alcohol) New Years only AUDIT-C Answer Date Recorded Q1: How often do you have a drink containing alc ohol? Monthly or less 07/18/2024 Q2: How many drinks containi ng alcohol do you have on a typical day when you are drinking? 1 or 2 07/18/2024 Q3: How often do you have si x or more drinks on one occasion? Never 07/18/2024 Hunger Vital Sign Answer Date Recorded Within [...] making you feel afraid or unsafe? 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 Not on file Not on file Not on file Last Filed Vital Signs Vital Sign Reading Time Taken Comments Blood Pressure 104/66 08/07/2024 1:44 PM HORSE SHOER Pulse 78 08/07/2024 1:44 PM HORSE SHOER Temperature 36.9 ??C (98.5 ??F) 07/20/2024 10:[address] Respiratory Rate 18 07/20/2024 10:32 AM HORSE SHOER Oxygen Saturation 97% 08/07/2024 1:44 PM HORSE SHOER Inhaled Oxygen Concentration - - Weight 77.8 kg (171 lb 9.6 oz) 08/07/2024 1:44 P M HORSE SHOER Height 162.6 cm (5' 4.02 ) 08/07/2024 1:44 PM CS T Body Mass Index 29.44 08/07/2024 1:44 PM HORSE SHOER Plan of Treatment Upcoming Encounters Date Type Department Care Team (Latest Contact Info) Description 02/02/2025 11:00 AM CDT Hospital Encounter [facility] [address] [place] [address] Janet Em MD [address] [place] [address] [address] [place] [address] 02/02/2025 11:00 AM CDT - 02/02/2025 11:55 AM CDT Surgery [facility] [address] [place] [address] Janet Em MD [address] [facility] [address] [place] [address] ESOPHAGOGASTRODUODENOSCOPY Scheduled Procedures Name Priority Associated Diagnoses Date/Ti me ESOPHAGOGASTRODUODENOSCOPY Diarrhea, unspecified type Esophagitis 02/02/2025 11:00 AM CDT COLONOSCOPY Diarrhea, unspecified type Esophagitis 02/02/2025 11:00 AM CDT Medical Devices Implanted Type Area Wool Hat Hydraulicker Device Identifier Shelf Expiration Date Model / Serial / Lot Xooker Aria Angio-Seal Vip 6fr Closere Device [id number] - [id number] Implanted:Qty: 1 on 06/30/2024 by Guerrero Barnes MD at [facility] 11/11/2024 [id number] / / [id number] Procedures Procedure Name Priority Date/Time Associated Diagnosis Comments PET STRESS TEST Schedule Routine, Read Routine (OP Routine) 07/27/2024 3:52 PM HORSE SHOER Other chest pain Coronary artery disease involving [place] coronary artery of [place] heart without angina pectoris Precordial chest pain Dyspnea on exertion PET/CT MYOCARDIAL PERFUSION IMAGING (MULTIPLE) Schedule Routine, Read Routine (OP Routine) 07/27/2024 3:52 PM HORSE SHOER Other chest pain Coronary artery disease involving [place] coronary artery of [place] heart without angina pectoris Precordial chest pain Dyspnea on exertion SURGICAL PATHOLOGY STAT 07/20/2024 1:34 PM HORSE SHOER Encounter for screening colonoscopy Dysphagia, unspecified type Odynophagia Colitis Globus sensation Diarrhea of presumed infectious origin ENDO ADD ON ESOPHAGOGASTRODUODENOSCOPY BIOPSY 07/20/2024 9:21 AM HORSE SHOER Encounter for screening colonoscopy Dysphagia, unspecified type Odynophagia Colitis Globus sensation Diarrhea of presumed infectious origin ESOPHAGOGASTRODUODENOSCOPY ESOPHAGEAL GUIDE WIRE 07/20/2024 9:21 AM HORSE SHOER Encounter for screening colonoscopy Dysphagia, unspecified type Odynophagia Colitis Globus sensation Diarrhea of presumed infectious origin EGD 07/20/2024 8:01 AM HORSE SHOER MULTIPLE SLEEP LATENCY TEST Routine 07/15/2024 Hypersomnolence PSG (SIMPLE) Routine 07/15/2024 SARAHY (obstructive sleep apnea) LEFT HEART CATHETERIZATION WITH CORONARY ANGIOGRAPHY AND WITH AND WITHOUT LEFT VENTRICULOGRAM Routine 06/30/2024 12:12 PM HORSE SHOER Abnormal stress test EGFR Routine 06/30/2024 3:24 AM HORSE SHOER DIFFERENTIAL AUTO Routine 06/30/2024 3:24 AM HORSE SHOER BASIC METABOLIC PANEL Routine 06/30/2024 3:24 AM HORSE SHOER CBC WITH AUTO DIFFERENTIAL Routine 06/30 3:24 AM HORSE SHOER APTT Routine 06/30/2024 3:24 AM HORSE SHOER PROTIME-INR Routine 06/30/2024 3:24 AM HORSE SHOER ECG 12-LEAD Routine 06/30/2024 3:10 AM HORSE SHOER COVID-19 CORONAVIRUS RNA Routine 024 12:06 PM HORSE SHOER EGFR Routine 06/29/2024 5:52 AM HORSE SHOER LIPID PANEL Routine 06/29/2024 5:52 AM HORSE SHOER BASIC METABOLIC PANEL Routine 06/29/2024 5:52 AM HORSE SHOER XR CHEST PA LATERAL 2 VIEWS ED 06/18 3:46 AM HORSE SHOER D-DIMER, QUANTITATIVE STAT 06/29/2024 3:36 AM HORSE SHOER EGFR STAT 06/29/2024 3:36 AM HORSE SHOER DIFFERENTIAL AUTO STAT 06/29/2024 3:36 AM HORSE SHOER TROPONIN T HIGH-SENSITIVITY SERIES (BASELINE, 2HR, 4HR, 6HR) STAT 06/29/2024 3:36 AM HORSE SHOER CBC WITH AUTO DIFFERENTIAL STAT 06/29 3:36 AM HORSE SHOER COMPREHENSIVE METABOLIC PANEL STAT 3:36 AM HORSE SHOER ECG 12-LEAD Routine 06/29/2024 3:04 AM HORSE SHOER EGFR Routine 06/24/2024 9:17 AM HORSE SHOER Pre-operative cardiovascular examination DIFFERENTIAL AUTO Routine 06/24/2024 9:17 AM HORSE SHOER Pre-operative cardiovascular examination BASIC METABOLIC PANEL Routine 06/24/2024 9:17 AM HORSE SHOER Pre-operative cardiovascular examination CBC WITH AUTO DIFFERENTIAL Routine 06/24 9:17 AM HORSE SHOER Pre-operative cardiovascular examination NM MPI SPECT (REST AND/OR STRESS) MULTIPLE STUDIES Schedule Routine, Read Routine (OP Routine) 06/19/2024 10:45 AM HORSE SHOER Precordial chest pain Hyperlipidemia, unspecified hyperlipidemia type Coronary artery disease, unspecified vessel or lesion type, unspecified whether angina present, unspecified whether [place] or transplanted heart TRANSTHORACIC ECHO (TTE) COMPLETE W DOPPLER/CF WO CONTRAST Routine 06/19/2024 8:17 AM HORSE SHOER Precordial chest pain Hyperlipidemia, unspecified hyperlipidemia type Coronary artery disease, unspecified vessel or lesion type, unspecified whether angina present, unspecified whether [place] or transplanted heart from Last 3 Months Results * PET Stress Test (07/27/2024 3:52 PM HORSE SHOER) Anatomical Region Laterality Modality N/A Positron Emissio n Tomography (PET) Impressions 07/27/2024 4:40 PM HORSE [facility]OER Electrocardiographically normal pharmacologic stress test I personally supervised and was present throughout the stress test. Refer to the separate report of the PET myocardial perfusion imaging results. Narrative 07/27/2024 4:40 PM HORSE SHOER EXAMINATION: PHARMACOLOGIC STRESS TEST FOR CARDIAC PET MYOCARDIAL PERFUSION IMAGING DATE OF STUDY: 07/27/2024 INDICATION FOR STUDY: ? History: ??HLD, HTN, current smoker, COPD, asthma, PE PHARMACOLOGIC STRESS AGENT: 0.4 mg regadenoson i.v. Symptomatically - Pt stated she had 10/10 CP, ??Dr Medina aware FINDINGS: Resting electrocardiogram:NSR, no STT changes Stress electrocardiogram: Some mild T-wave flattening in inferior leads Symptoms during stress test: She was experiencing 8/10 atypical chest discomfort prior to any stress agent with a normal EKG and this discomfort increased to 9/10 and then returned to 8/10 at 10 minutes of recovery ? Regadenoson Stress and hemodynamics: The patient received 0.4 mg of the A2A adenosine receptor agonist regadenoson (Lexiscan), infused intravenously over 10 seconds, followed approximately 20 seconds later by tracer infusion. ??The test was stopped at the completion of the protocol. ?HR ?BP ?MEDS Baseline ?79 ? 112/80 inject Mer ? 71 ? 95/68 inject PET agent ?104 ?117/76 Recovery ??2min ?96 ?92/65 ? 3min ? 90 ? 4min ? 84 ?94/64 ? 5min ? 82 ? 6min ? 83 ?101/66 us Prasad PAULSON PET PROCEDURES Final Resul t * PET/CT Myocardial Perfusion Imaging (Multiple) (07/27/2024 3:52 PM HORSE SHOER) Anatomical Region Laterality Modality Body N/A Positron Emissio n Tomography (PET) 07/27/2024 4:58 PM HORSE SHOER Impressions 07/28/2024 9:27 AM HORSE SHOER 1. ??Rest and pharmacologic-stress myocardial perfusion images demonstrate normal distribution of perfusion, with no focal perfusion defects. 2. ??Normal left ventricular size and systolic function. 3. ??Flow quantification with normal hyperemic MBF and MFR signifies normal microvascular function and coronary vasodilator capacity, respectively. (For detailed flow values, please see table in results). Dr Cummings ??also participated in the interpretation of this examination. Dictated by: Priscila Jurado MD The radiology attending physician has personally reviewed this study, and had reviewed and/or edited this written report and agrees with it. Electronically signed by: Kane Medina M.D. Narrative 07/28/2024 9:27 AM HORSE SHOER EXAMINATION: MYOCARDIAL PET/CT PERFUSION IMAGING (STRESS/REST) DATE OF STUDY: 07/27/2024 SCANNER: [facility] [place] ([place]). ?? RADIOPHARMACEUTICAL: 8.21 mCi N-13 ammonia i.v., ??16.79 mCi N-13 ammonia i.v., Injection site: Right forearm HISTORY: 43-year-old woman with chest discomfort, EKG abnormalities, mild septal wall ischemia on a nuclear stress test, underwent a cardiac catheterization that showed no significant coronary artery disease. ??Evaluate for ischemia and/or microvascular dysfunction. The patient's body mass index (BMI) was 29.01. TECHNIQUE: Both stress and rest imaging were performed, in the following order: rest/stress. ?? Regadenoson Stress: ??The patient received 0.4 mg of the A2A adenosine receptor agonist regadenoson (Lexiscan) infused intravenously over 10 seconds, followed approximately 20 seconds later by radiopharmaceutical injection. The electrocardiogram during infusion of the stress agent was negative ??for ischemia. ??The patient reported no symptoms during vasodilation. ??See for a full report of the ECG pharmacologic stress test findings. Imaging: Dynamic peak-stress PET/CT myocardial perfusion images were obtained beginning immediately after radiopharmaceutical injection at the peak effect of the drug. ?A minimum of 40 minutes later, dynamic rest PET/CT myocardial perfusion images were obtained immediately after radiopharmaceutical injection under rest conditions. ??The low-dose noncontrast CT images were used for attenuation correction of the PET images and for localization of any abnormal extracardiac tracer uptake. COMPARISON: MPI SPECT dated 06/19/2024 FINDINGS: There is normal distribution of activity in the left and right ventricular myocardium on both stress and rest images. Gated post-stress images demonstrate normal left ventricular wall thickening. ??The left ventricular volume is normal and the left ventricular ejection fraction is 49% (normal >45%). ??Additional gated rest images demonstrate normal left ventricular wall thickening and a visually normal resting left ventricular ejection fraction. Quantitative analysis of myocardial blood flow (MBF) in ml/g/min and myocardial flow reserve (MFR), calculated using 4DM software: ? MBF-stress ?MBF-rest ?MFR LAD: ? 2.54 ?1.18 ?2.16 ?? LCx: ? 2.69 ? 1.2 ?2.25 ? RCA: ? 2.66 ? 1.23 ?2.16 Global: ?2.61 ? 1.16 ?2.25 ?? (Normal values: rest MBF 0.8 - 1.2 mL/g/min; stress(hyperemic) MBF >2.0 mL/g/min; MFR>2.0) Incidental findings on the CT images: Emphysematous changes in both lungs. ??Cholecystectomy. Procedure Note Kane Medina MD - 07/28/2024 EXAMINATION: MYOCARDIAL PET/CT PERFUSION IMAGING (STRESS/REST) DATE OF STUDY: 07/27/2024 SCANNER: [facility] [place] ([place]). RADIOPHARMACEUTICAL: 8.21 mCi N-13 ammonia i.v., 16.79 mCi N-13 ammonia i.v., Injection site: Right forearm HISTORY: 43-year-old woman with chest discomfort, EKG abnormalities, mild septal wall ischemia on a nuclear stress test, underwent a cardiac catheterization that showed no significant coronary artery disease. Evaluate for ischemia and/or microvascular dysfunction. The patient's body mass index (BMI) was 29.01. TECHNIQUE: Both stress and rest imaging were performed, in the following order: rest/stress. Regadenoson Stress: The patient received 0.4 mg of the A2A adenosine receptor agonist regadenoson (Lexiscan) infused intravenously over 10 seconds, followed approximately 20 seconds later by radiopharmaceutical injection. The electrocardiogram during infusion of the stress agent was negative for ischemia. The patient reported no symptoms during vasodilation. See for a full report of the ECG pharmacologic stress test findings. Imaging: Dynamic peak-stress PET/CT myocardial perfusion images were obtained beginning immediately after radiopharmaceutical injection at the peak effect of the drug. A minimum of 40 minutes later, dynamic rest PET/CT myocardial perfusion images were obtained immediately after radiopharmaceutical injection under rest conditions. The low-dose noncontrast CT images were used for attenuation correction of the PET images and for localization of any abnormal extracardiac tracer uptake. COMPARISON: MPI SPECT dated 06/19/2024 FINDINGS: There is normal distribution of activity in the left and right ventricular myocardium on both stress and rest images. Gated post-stress images demonstrate normal left ventricular wall thickening. The left ventricular volume is normal and the left ventricular ejection fraction is 49% (normal >45%). Additional gated rest images demonstrate normal left ventricular wall thickening and a visually normal resting left ventricular ejection fraction. Quantitative analysis of myocardial blood flow (MBF) in ml/g/min and myocardial flow reserve (MFR), calculated using [employer]ook of Odds software: MBF-stress MBF-rest MFR LAD: 2.54 1.18 2.16 LCx: 2.69 1.2 2.25 RCA: 2.66 1.23 2.16 Global: 2.61 1.16 2.25 (Normal values: rest MBF 0.8 - 1.2 mL/g/min; stress(hyperemic) MBF >2.0 mL/g/min; MFR>2.0) Incidental findings on the CT images: Emphysematous changes in both lungs. Cholecystectomy. IMPRESSION: 1. Rest and pharmacologic-stress myocardial perfusion images demonstrate normal distribution of perfusion, with no focal perfusion defects. 2. Normal left ventricular size and systolic function. 3. Flow quantification with normal hyperemic MBF and MFR signifies normal microvascular function and coronary vasodilator capacity, respectively. (For detailed flow values, please see table in results). Dr Cummings also participated in the interpretation of this examination. Dictated by: Priscila Jurado MD The radiology attending physician has personally reviewed this study, and had reviewed and/or edited this written report and agrees with it. Electronically signed by: Kane Medina M.D. us Prasad Lopez MD IMG PET PROCEDURES Final Resul t * Surgical pathology (07/20/2024 1:34 PM HORSE SHOER) Tissue (Gastric/Stomach biopsy) 07/20/2024 9:56 AM HORSE SHOER Tissue (Duodenum, Biopsy) 07/20/2024 9:56 AM HORSE SHOER Tissue (Esophageal biopsy) 07/20/2024 9:58 AM HORSE SHOER Tissue (Esophageal biopsy) 07/20/2024 9:58 AM HORSE SHOER Narrative PATHOLOGY [facility] ([place]) - 07/21/2024 1:48 PM HORSE SHOER EPIC results best viewed via link to PDF [facility] Department of Pathology [address] [place] [address] Note to Patients: This report may contain a detailed description of human tissue sent by a health care provider to the laboratory for pathologic evaluation. The content of this report is essential for diagnosis and may provide important critical findings. This information may be unfamiliar to patients to review without a medical professional present. It is advised that the patient review this report in the presence of a health care provider who can answer questions and explain the details. Final Report Patient Name: ??YAZMIN ETIENNE Address: ??[address] [place] [address], ??[place], [place] ??[address] Gender: ??F : ??1980 (Age: 43) Service: ??Gastro Location: ??[facility] #: ??[id number] Patient Type: ??[facility] SDS Accession # ?[id number] Taken: ??07/20/2024 Received: ??07/20/2024 Accessioned: ??07/20/2024 Reported: ??07/21/2024 Physician(s):Janet Em MD Diagnosis: A. Stomach, gastric biopsy- ? Benign antral type gastric mucosa demonstrating features consistent with mild reactive/erosive gastropathy ? Active gastritis not demonstrated B. ??Duodenum, endoscopic biopsy- ? Benign duodenal mucosa demonstrating pyloric metaplasia and intramucosal Anaya's glands, nonspecific ? Intact villous architecture; no morphologic evidence of sprue C. Proximal esophagus, endoscopic biopsy- ? Focal intestinal metaplasia/Bejarano's mucosa present in squamoglandular mucosa ? Negative for dysplasia ? Fragments of unremarkable squamous mucosa D. ??Distal esophagus, endoscopic biopsy- ? Benign squamous mucosa demonstrating mild chronic inflammation and reactive change Lin Carty M.D. Report Electronically Reviewed and Signed Out By ??Lin Carty M.D. ??07/21/2024 13:48:03 Specimen(s) Received: A: Gastric biopsy for H. pylori B: Duodenum biopsy C: Proximal esophageal biopsy D: Distal esophageal biopsy Microscopic Description: Microscopic examination corroborates the diagnosis. ?? Clinical History: Dysphagia. ??Odynophagia. ??Colitis. ??Globus sensation. ??Diarrhea of presumed infectious origin. ??Screening colonoscopy. Gross Description: The specimen is submitted in four containers labeled YAZMIN ETIENNE . A. ??The first container is labeled gastric biopsy for H pylori . ??It is 2 fragments of courtney-pink mucosa, 2-3 mm. ??All in A. B. ??The second container is labeled duodenum biopsy . ??It is 3 fragments of courtney mucosa, 2-3 mm. ??All in B. C. ??The third container is labeled proximal esophageal biopsy . It is 2 fragments of pale mucosa, 1-2 mm. All in C. D. ??The fourth container is labeled distal esophageal biopsy . It is 2 fragments of pale mucosa, 1-2 mm. All in D. Jose Carlos JiA./Lin Carty M.D. REPORT IMAGES AND SCANNED DOCUMENTS, IF INCLUDED, ONLY VIEWABLE IN PDF VERSION OF REPORT The performance characteristics of some immunohistochemical stains, fluorescence in-situ hybridization tests and immunophenotyping by flow cytometry cited in this report (if any) were determined by the Surgical Pathology Department at [facility] as part of an ongoing director of quality improvement program and in compliance with federally mandated regulations drawn from the Clinical Laboratory Improvement Act of 1988 (CLIA '88). ??Some of these tests rely on the use of analyte specific reagents and are subject to specific labeling requirements by the US Food and Drug Administration. ??Such diagnostic tests may only be performed in a facility that is certified by the Department of Health and Human Services as a high complexity laboratory under CLIA '88. The FDA has determined that such clearance or approval is not necessary. ??This test is used for clinical purposes. ??It should not be regarded as investigational or for research. ??Nevertheless, federal rules concerning the medical use of analyte specific reagents require that the following disclaimer be attached to the report: This test was developed and its performance characteristics determined by the Surgical Pathology Department [facility]. ??It has not been cleared or approved by the U. S. Food and Drug Administration. Note for decalcified specimens: This assay has not been validated on decalcified tissues. Results should be interpreted with caution given the possibility of false negativity on decalcified specimens Janet Em MD LAB PATHOLOGY ORDERABLES Final R esult Performing Organization Address City/State/[facility] Co de Phone Number PATHOLOGY [facility] [address] [place] [address] * EGD (07/20/2024 8:01 AM HORSE SHOER) Anatomical Region Laterality Modality Other Narrative Procedure Note Janet Em MD - 07/20/2024 8:01 AM CST [facility] Patient Name: Yazmin Etienne Procedure Date: 07/20/2024 8:01 AM Date of : 1980 Admit Type: Outpatient Age: 43 Gender: Female Attending MD: Janet Em M.D. Room: [facility] ENDOSCOPY ROOM 2 Note Status: Finalized Patient Profile: This is a 43 year old female female hx of COPD,HLD, tobacco use here for EGD for dysphagia,odynophagia, heartburn. Was also scheduled for colonoscopy for chronic diarrhea and possible colitis work uphowever patient did not complete prep. Last EGD from06/2023 showed Grade C esophagitis with otherwise normal esophagus that was empirically dilated to 50 Fr.Did not feel any relief in her dysphagia after dilation last time. Reflux symptoms doing a little betterafter increasing PPI to BID. Procedure: Upper GI endoscopy Indications: Dysphagia, Odynophagia, Heartburn, Follow-up of gastro-esophageal reflux disease Referring MD: Alicia Cueva PA-C Providers: Janet Em M.D. Impression: - LA Grade B reflux esophagitis with no bleeding. Biopsied. - No endoscopic esophageal abnormality to explain patient's dysphagia. Esophagus dilated. Biopsied. - Erythematous mucosa in the antrum. Biopsied. - Normal examined duodenum. Biopsied. Recommendation: - Patient has a contact number available for emergencies. The signs and symptoms of potential delayed complications were discussed with thepatient. Return to normal activities tomorrow. Written discharge instructions were provided to thepatient. - Discharge patient to home (with escort). - Resume previous diet. - Continue present medications with PPI BID for 3 months then decrease to once daily. - Await pathology results. - Smoking cessation - Repeat upper endoscopy in 6 months to checkhealing. - Return to GI clinic as previously scheduled. Medicines: Monitored Anesthesia Care Complications: No immediate complications. Estimated Blood Loss: Estimated blood loss was minimal. Procedure: Pre-Anesthesia Assessment: - Prior to the procedure, a History and Physicalwas performed, and patient medications and allergieswere reviewed. The patient is competent. The risks and benefits of the procedure and the sedation optionsand risks were discussed with the patient. Allquestions were answered and informed consent was obtained. Patient identification and proposed procedure were verified by the physician, the carpentry professional and the science technicians in the endoscopy suite. Mental Status Examination: normal. Prophylactic Antibiotics: The patient does not require prophylactic antibiotics. Prior Anticoagulants: The patient has taken no anticoagulant or antiplatelet agents. Afterreviewing the risks and benefits, the patient was deemed in satisfactory condition to undergo the procedure.The anesthesia plan was to use monitored anesthesiacare (MAC). Immediately prior to administration of medications, the patient was re-assessed foradequacy to receive sedatives. The heart rate, respiratory rate, oxygen saturations, blood pressure, adequacyof pulmonary ventilation, and response to care were monitored throughout the procedure. The physical status of the patient was re-assessed after the procedure. The benefits, risks, and alternatives to theprocedure and sedation were discussed and informed consentwas obtained. The scope was passed under direct vision. The Endoscope GIF-H190 [id number] was introduced through the mouth, and advanced to the second partof duodenum. The upper GI endoscopy was accomplished without difficulty. The patient tolerated the procedure well. Findings: LA Grade B (one or more mucosal breaks greater than 5 mm, notextending between the tops of two mucosal folds) esophagitis with somenodularity was found in the distal esophagus. Biopsies were taken with a cold forceps for histology. No endoscopic abnormality was evident in the esophagus to explain the patient's complaint of dysphagia. It was decided, however, to proceed with dilation of the entire esophagus. A guidewire was placed and the scope was withdrawn. Dilation was performed with a Savary dilatorwith no resistance at 54 Fr. The dilation site was examined following endoscope reinsertion and showed no mucosal injury. Mildly erythematous mucosa without bleeding was found in the gastric antrum. Biopsies were taken with a cold forceps for Helicobacterpylori testing. The examined duodenum was normal. Biopsies for histology were takenwith a cold forceps for evaluation of celiac disease. Janet Em M.D. 07/20/2024 10:05:30 AM Number of Addenda: 0 Note Initiated On: 07/20/2024 8:01 AM Procedure Code(s): --- Professional --- 87515, Esophagogastroduodenoscopy, flexible, transoral; withinsertion of guide wire followed by passage of dilator(s) through esophagusover guide wire --- Technical --- 80193, Esophagogastroduodenoscopy, flexible, transoral; withinsertion of guide wire followed by passage of dilator(s) through esophagusover guide wire Diagnosis Code(s): --- Professional --- K21.00, Gastro-esophageal reflux disease with esophagitis, without bleeding R13.10, Dysphagia, unspecified K31.89, Other diseases of stomach and duodenum R12, Heartburn --- Technical --- K21.00, Gastro-esophageal reflux disease with esophagitis, without bleeding R13.10, Dysphagia, unspecified K31.89, Other diseases of stomach and duodenum R12, Heartburn CPT copyright 2020 [employer]. All rights reserved. The codes documented in this report are preliminary and upon clinical account executive reviewmay be revised to meet current compliance requirements. Recognized by the [employer] for promoting quality in endoscopy us Janet Em MD ENDOSCOPY PROCEDURES Final Resul t * PSG (07/15/2024) Impressions Jody Spencer MD - 07/15/2024 Baseline Polysomnogram Followed By MSLT History: Yazmin Etienne is a 43 y.o. female who presents for baseline polysomnogram. Reason for sleep study: ??Excessive daytime sleeping [place] sleepiness score: 17 Weight: 162 lbs BMI: 27.95 ? Procedure: This overnight diagnostic baseline polysomnogram was performed with the dairy manufacturing technologist in attendance. Patient is studied with multiple channel polysomnography to include EEG, sleep stage recording, cardio-respiratory monitoring, monitoring for limb movements as well as videotaping. Central, frontal, occipital and temporal EEG, bilateral EOG, submental EMG, oral and nasal airflow, thoracoabdominal motion, bilateral anterior tibialis EMG, one lead EKG, snore sensor, pulse oximetry and transcutaneous CO2 were monitored. Sleep stages, periodic limb movements, EEG arousals and respiratory events were scored according to the criteria from The [employer] [employer] (AASM) Manual for the scoring of sleep and associated events - version 2.6. ?? Findings: ?? Baseline parameters: Baseline heart rate =75/m, Oxygen saturation =98% Sleep architecture: Polysomnogram revealed total recording time of 473.4 minutes and total sleep time of 350.0 minutes with sleep efficiency of 73.9%. ??Sleep onset latency was 30.0 minutes, and REM latency 89.5 minutes. ?? N1 12.3%, ??N2 64.1%, N3 11.7% and REM 11.9% accounted for the total sleep time. EEG profile: EEG was reviewed. Snoring profile: The patient had mild snoring. Snoring was not associated with arousals. Respiratory analysis: A total of 0 obstructive apneas, 0 mixed apneas, 0 central apneas and 6 hypopneas were seen with AHI of 1.0 per hour. In addition, 9 Respiratory Effort Related Arousals (RERAs) were seen with AHI+RERA index or respiratory disturbance index (RDI) of 2.6. Oximetry data: Lowest oxygen saturation was 87%. The patient had an O2 saturation < 88% for 0.5 minutes. ?? Lowest oxygen saturation was associated with a respiratory event. TcCO2 data: Baseline TcCO2 was 40 mmHg and the maximum TcCO2 was 41 mmHg during the study. Limb movement profile: ??A total of 24 periodic limb movements were noted, of which 2 movements were associated with arousal. Total movement index was 4.1 per hour and movement with arousal index was 0.7 per hour. Parasomnia profile: No abnormal behavior to suggest parasomnia was noted. EKG analysis: revealed normal sinus rhythm. Interpretation and Recommendations: This is an abnormal polysomnogram due to the presence of: ? 1. Mild intermittent snoring. Patient does not meet diagnostic criteria for sleep apnea and therefore does not qualify for CPAP therapy. Snoring could be due to multiple factors such as obesity, thyroid disease, and structural/obstructive abnormalities in the upper airway. An evaluation and management of these factors may be helpful. If snoring is bothersome either to patient or to family members, ENT examination may be helpful. Oral appliances may be another option. 2. Weight loss for ideal body weight range is recommended. 3. Prolonged sleep latency and reduced sleep efficiency: Patient has prolonged sleep onset latency of 30.0 ??minutes and reduced sleep efficiency of 73.9%. Factors like, psychiatric illness, insomnia or chronic pain may be contributory as well as poor sleep hygiene and/or daytime napping. Clinical correlation is recommended. MSLT to follow this study. Jody Spencer MD [facility] Sleep Medicine Narrative Jody Spencer MD - 07/15/2024 In lab for review us Jody Spencer MD SLEEP CENTER ORDERABLES Final Re sult * Multiple Sleep Latency Test (07/15/2024) Impressions Jody Spencer MD - 07/15/2024 MULTIPLE SLEEP LATENCY TEST History: Yazmin Etienne is a 43 y.o. female who presents for a baseline polysomnogram followed by MSLT. Reason for sleep study: ??Excessive daytime sleeping [place] sleepiness score: 17 Weight: 162 lbs BMI: 27.95 Procedure: Subsequent to the polysomnogram, the patient was given 5 opportunities to nap with 2 hours apart for the patient to sleep for this Multiple Sleep Latency Test (MSLT). Sleep onset latency and REM onset latency was monitored. Baseline sleep study: Sleep onset latency was 30.0 minutes and REM latency 89.5 minutes. MSLT: TrialTimeSleep Onset Latency (minutes)REM Onset Latency (minutes) 1 ?7:00 am19.5 ? SOREMP [-] 2 ?9:00 am17.0 ? SOREMP [-] 3 ?11:00 am14.9 ? SOREMP [-] 4 ?1:00 pm10.5 ? SOREMP [-] 5 ?2:55 pm19.9 ? SOREMP [-] Mean Latency: 16.4 minutes ? Interpretation and Recommendations: On MSLT, mean sleep latency (MSL) was 16.4 minutes and patient had 0 sleep-onset rapid eye movement periods (SOREMPs) in all 5 trials. The findings on MSLT are no consistent with diagnosis of narcolepsy. Clinical correlation is recommended. Jody Spencer MD [facility] Sleep Medicine Narrative Jody Spencer MD - 07/15/2024 MSLT for review us Jody Spencer MD SLEEP CENTER ORDERABLES Edited R esult - Final * LEFT HEART CATHETERIZATION WITH CORONARY ANGIOGRAPHY AND WITH AND WITHOUT LEFT VENTRICULOGRAM (06/30/2024 12:12 PM HORSE SHOER) Anatomical Region Laterality Modality X-Ray Angiograph y 06/30/2024 Narrative 07/04/2024 8:30 AM HORSE SHOER [employer] Job ID: [id number] [employer] Document ID: [id number] Dictated date/time: [id number] INDICATION Yazmin Etienne is a 43-year-old female with typical/atypical exertional/nonexertional chest discomfort. ??Initial EKG showed slight ST depression inferolaterally. ??This is similar to an EKG from April 2023. ?? Cardiac enzymes were normal. ??She did have a recently slightly abnormal nuclear stress test at [facility] about 2 weeks ago. ??It showed mild septal wall ischemia. ??Cardiac catheterization was scheduled at [facility] for next week. ??Since she is here now, she is agreeable to a cardiac catheterization. ??She understands risks include the following but not limited to following: ??, CVA, myocardial infarction, infection, vascular problems, dye reaction, dysrhythmias, pain, bleeding, renal failure, need for urgent CABG or stent placement. ??Radiation exposure also discussed with the patient. PROCEDURE The patient was brought down to cardiac label remover where she was prepped and draped in usual sterile fashion. ??Time-out was done prior to the procedure. ??ARIA Bateman, was the sedating nurse for total sedation time of 34 minutes. ??The patient received in small increments 2 mg IV Versed, 50 mg IV Benadryl and 100 mcg of fentanyl. ??When well sedated, 1% lidocaine was given to the right groin. ??A 5-Cambodian sheath was then placed over a J tipped guidewire without difficulties. ??Femoral angiogram showed a good location for an Angio-Seal device at the end of procedure. ??Next, a 5-Cambodian JR4 catheter was then placed into the left ventricle for hemodynamics and pullback. ??Same catheter was then used for right coronary injection done in multiple views. ??Left main was injected in multiple views using a 5-Cambodian JL4 catheter. ??Finally, a 5-Cambodian angled pigtail catheter was used for hemodynamics. ??It was also used for left ventriculography which was done in the 30-degree CASTRO position. ??LV pullback was then performed. ??This was then followed by Angio-Seal to the right groin. ??Manual pressure was applied for 5 minutes. Patient left the label remover without chest pain and with good hemostasis in the right groin. ??Fluoro time was 2.4 minutes with a total dye load of 103 mL of Optiray-350. FINDINGS 1. Hemodynamics as follows: ?? Left ventricular systolic pressure 130 mmHg. ?? Left ventricular end-diastolic pressure 5 mmHg. Aortic systolic pressure 130 mmHg. Aortic diastolic pressure 70 mmHg. ?? There was no gradient across the aortic valve upon pullback. 2. Injection of right coronary artery reveals this to be a right dominant system. ??No significant disease noted here. ??There is a large PDA followed by 2 small posterolateral branches and a large 3rd posterolateral branch. 3. Injection left main reveals a medium size ramus. ??The LAD is quite large and goes all the way down to the tip of the heart. ??No significant CAD noted here. ??There is a large 1st diagonal branch and some very small diagonal branches thereafter. 4. Circumflex also comes from left main and is also without any significant disease. ??There are 2 small obtuse marginal branches proximally followed by a medium distal obtuse marginal branch. 5. Left ventriculography reveals normal global LV systolic function with estimated ejection fraction of 55% to 60%. ??No mitral regurgitation. CONCLUSION 1. Normal coronary angiography in this right dominant system. 2. No mitral regurgitation. 3. Normal global LV systolic function with estimated ejection fraction of 55% to 60%. Findings discussed with Dr. Geronimo. Patient can go home later this afternoon. Job ID/Internal Job ID: ??[id number] us Guerrero Barnes MD CV CARDIAC CATH PROCEDURES Fi nal Result * eGFR (06/30/2024 3:24 AM HORSE SHOER) eGFR 89 >=60 mL/min/1. 73 m2 Comment: Interpretive Data Reference Interval Normal ?>/= 90 mL/min/1.73m2 Mildly decreased* ? 60 - 89 mL/min/1.73m2 Mildly to moderately decreased ?45 - 59 mL/min/1.73m2 Moderately to severely decreased ??30 - 44 mL/min/1.73m2 Severely decreased ?15 - 29 mL/min/1.73m2 Kidney Failure ?< 15 ??mL/min/1.73m2 *Relative to young adult level Estimated glomerular filtration rate is determined by the 2020 CKD-EPI equation recommended by the National Kidney Foundation (A Unifying Approach to GFR Estimation: Recommendations of the NKF-ASK Task Force on Reassessing the Inclusion of Race in Diagnosing Kidney Disease, JASN 2020). The CKD-EPI equation should not be used for patients with unstable renal function and has not been validated in children and those over 70. Current interpretive data was last reviewed 2021. Blood 06/30/2024 3:24 AM HORSE SHOER 06/30/2024 4:54 AM HORSE SHOER us Peggy Munoz MD LAB BLOOD ORDERABLES Final Resul t [facility] ([place]) 1 [facility] Department [place] [address] * Differential, auto (06/30/2024 3:24 AM HORSE SHOER) Pathologist [facility] Neutrophil abs 3.3 1.5 - 6.5 K/cumm Imm gran abs 0.0 0.0 - 0.1 K/cumm [facility] ([place]) Lymphocyte abs 1.6 0.8 - 3.3 K/cumm [facility] ([place]) Monocyte abs 0.6 0.2 - 0.8 K/cumm [facility] ([place]) Eosinophil abs 0.2 0.0 - 0.5 K/cumm [facility] ([place]) Basophil abs 0.1 0.0 - 0.1 K/cumm [facility] ([place]) Neutrophil pct 57.4 % [facility] ([place]) Comment: Interpretive Data Percent cell count reference ranges are not reported, since discordance with absolute values may lead to misinterpretation of CBC data. Current Interpretive Data was last revised on 2017. Imm gran pct 0.2 % [facility] ([place]) Comment: Interpretive Data Percent cell count reference ranges are not reported, since discordance with absolute values may lead to misinterpretation of CBC data. Current Interpretive Data was last revised on 2017. Lymphocyte pct 28.0 % [facility] ([place]) Comment: Interpretive Data Percent cell count reference ranges are not reported, since discordance with absolute values may lead to misinterpretation of CBC data. Current Interpretive Data was last revised on 2017. Monocyte pct 10.4 % [facility] ([place]) Comment: Interpretive Data Percent cell count reference ranges are not reported, since discordance with absolute values may lead to misinterpretation of CBC data. Current Interpretive Data was last revised on 2017. Eosinophil pct 2.6 % [facility] ([place]) Comment: Interpretive Data Percent cell count reference ranges are not reported, since discordance with absolute values may lead to misinterpretation of CBC data. Current Interpretive Data was last revised on 2017. Basophil pct 1.4 % [facility] ([place]) Comment: Interpretive Data Percent cell count reference ranges are not reported, since discordance with absolute values may lead to misinterpretation of CBC data. Current Interpretive Data was last revised on 2017. Blood 06/30/2024 3:24 AM HORSE SHOER 06/30/2024 4:54 AM HORSE SHOER us Peggy Munoz MD LAB BLOOD ORDERABLES Final Resul t [facility] ([place]) 1 [facility] Department [place] [address] * CBC with auto differential (06/30/2024 3:24 AM HORSE SHOER) WBC 5.7 3.8 - 9.9 K/cumm Hgb 14.2 11.9 - 15.5 g/dL [facility] ([place]) Hct 42.1 35.6 - 45.5 % [facility] ([place]) Plt 244 150 - 400 K/cumm [facility] ([place]) MPV 10.4 9.1 - 12.3 fL [facility] ([place]) RBC 4.61 3.90 - 5.20 M/cumm [facility] MCV 91.3 81.3 - 96.4 fL [facility] ([place]) MCH 30.8 27.1 - 33.3 pg [facility] MCHC 33.7 32.3 - 35.7 g/dL [facility] RDW CV 13.2 11.1 - 14.9 % [facility] RDW SD 44.6 35.7 - 48.1 fL [facility] NRBC abs 0.00 0.00 - 0.01 K/cumm [facility] ([place] Blood 06/30/2024 3:24 AM HORSE SHOER 06/30/2024 4:54 AM HORSE SHOER us Peggy Munoz MD LAB BLOOD ORDERABLES Final Resul t [facility] ([place]) 1 [facility] Department [place] [address] * aPTT (06/30/2024 3:24 AM HORSE SHOER) aPTT 33 28 - 38 sec [facility] ([place] Comment: Interpretive Data Heparin therapeutic range: 66.0 - 100.0 seconds. Range based on correlation with therapeutic heparin activity range of 0.3 - 0.7 Units/mL. Current interpretive data was last revised on 2023. Blood 06/30/2024 3:24 AM HORSE SHOER 06/30/2024 4:53 AM HORSE SHOER Mirta Geronimo MD LAB BLOOD ORDERABLES Final Re sult Performing Organization Address City/[facility]/ZIP Co de Phone Number [facility] ([place]) 1 [facility] [place] [address] * Protime-INR (06/30/2024 3:24 AM HORSE SHOER) PT 11.6 9.7 - 13.0 sec [facility] ([place]) INR 1.07 0.90 - 1.20 [facility] ([place]) Comment: Interpretive data Oral anticoagulant therapeutic ranges: Venous thromboembolism prophylaxis or treatment: 2.0-3.0 CARDIOLOGY Standard range: 2.0-3.0 High-intensity range: 2.5-3.5 Refer to indication-specific guidelines for appropriate target ranges for prosthetic heart valve replacement. Current interpretive data was last revised on 2019. Blood 06/30/2024 3:24 AM HORSE SHOER 06/30/2024 4:53 AM HORSE SHOER us Peggy Munoz MD LAB BLOOD ORDERABLES Final Resul t Performing Organization Address City/[facility] Co de Phone Number [facility] ([place]) 1 [facility] [place] [address] * Basic metabolic panel (06/30/2024 3:24 AM HORSE SHOER) Sodium 137 135 - 145 mmol/L Potassium, pl 3.8 3.3 - 4.9 mmol/L [facility] ([place]) Chloride 103 97 - 110 mmol/L [facility] ([place]) CO2 24 22 - 32 mmol/L [facility] ([place]) Anion gap 11 2 - 15 mmol/L [facility] ([place]) BUN 11 6 - 25 mg/dL [facility] ([place]) Creatinine 0.83 0.60 - 1.10 mg/dL [facility] ([place]) Glucose 89 70 - 199 mg/dL [facility] ([place]) Comment: Interpretive Data Fasting glucose >/= 126 mg/dl is diagnostic for diabetes. ?? Fasting is defined as no caloric intake for at least 8 hours. Fasting glucose between 100 mg/dl to 125 mg/dl is diagnostic of prediabetes. In a patient with classic symptoms of hyperglycemia or hyperglycemic crisis, a random glucose >/= 200 mg/dl is diagnostic for diabetes. In the absence of unequivocal hyperglycemia, results should be confirmed by repeat testing. The classification and Diagnosis of Diabetes Diabetes Care 2021; 46: S19-S40. Current interpretive data was last revised 2022. Calcium 9.2 8.5 - 10.3 mg/dL [facility] ([place]) Blood 06/30/2024 3:24 AM HORSE SHOER 06/30/2024 4:54 AM HORSE SHOER us Peggy Munoz MD LAB BLOOD ORDERABLES Final Resul t [facility] ([place]) 1 [facility] Department [place] [address] * ECG 12 lead (06/30/2024 3:10 AM HORSE SHOER) 06/30/2024 3:10 AM HORSE SHOER Narrative [facility] - 06/30/2024 8:36 AM HORSE SHOER Vent Rate: 63 bpm RR Interval: 952 msec OK Interval: 182 msec QRS Duration: 81 msec QT Interval: 438 msec QTC Interval: 444 msec P-R-T [place]: 61 - 43 - 35 degrees IMPRESSION: SINUS RHYTHM NONSPECIFIC T-WAVE ABNORMALITY BORDERLINE ECG Compared to prior EKG, heart rate has decreased Electronically Signed By: Carmine Hernandez MD us Guerrero Barnes MD ECG ORDERABLES Final Result Performing Organization Address City/[facility]/ZIP Co de Phone Number [facility] [employer] [facility] * COVID-19 Coronavirus RNA Nasopharyngeal (06/29/2024 12:06 PM HORSE SHOER) COVID-19 RNA Negative Negative Nasopharyngeal 06/29/2024 12 :06 PM HORSE SHOER 06/29/2024 12:10 PM HORSE SHOER Narrative [facility] ([place]) - 06/29/2024 12:43 PM HORSE SHOER Is the patient experiencing any symptoms consistent with COVID (eg. Fever, cough, shortness of breath)?->No What is the reason for testing?->Screening for semi-private room placement ??Interpretive data: Testing performed by [facility]. ??This test is performed using the Bench Xpert Xpress CoV-2 plus assay. This is a real-time RT-PCR test intended for the qualitative detection of nucleic acid from the SARS-CoV-2. This assay has been cleared by the [place] Food and Drug administration. The performance characteristics have been verified by [facility]. ??Results must be considered in the clinical context, and a negative result does not rule out infection. Interpretive data last revised 2024. us Henrietta Alfaro MD LAB MICROBIOLOGY - GENERA L ORDERABLES Final Result [facility] ([place]) 1 [facility] Department of Laboratories [place], [place] [id number] * eGFR (06/29/2024 5:52 AM HORSE SHOER) eGFR >90 >=60 mL/min/1. 73 m2 Comment: Interpretive Data Reference Interval Normal ?>/= 90 mL/min/1.73m2 Mildly decreased* ? 60 - 89 mL/min/1.73m2 Mildly to moderately decreased ?45 - 59 mL/min/1.73m2 Moderately to severely decreased ??30 - 44 mL/min/1.73m2 Severely decreased ?15 - 29 mL/min/1.73m2 Kidney Failure ?< 15 ??mL/min/1.73m2 *Relative to young adult level Estimated glomerular filtration rate is determined by the 2020 CKD-EPI equation recommended by the National Kidney Foundation (A Unifying Approach to GFR Estimation: Recommendations of the NKF-ASK Task Force on Reassessing the Inclusion of Race in Diagnosing Kidney Disease, MEMEN 2020). The CKD-EPI equation should not be used for patients with unstable renal function and has not been validated in children and those over 70. Current interpretive data was last reviewed 2021. Blood 06/29/2024 5:52 AM HORSE SHOER 06/29/2024 5:55 AM HORSE SHOER us Gretchen Lal MD LAB BLOOD ORDERABLES Fin al Result [facility] ([place]) 1 [facility] Department [place] [address] * (ABNORMAL) Lipid panel (06/29/2024 5:52 AM HORSE SHOER) Cholesterol 199 30 - 199 mg/dL Comment: Interpretive Data Ages < or = 19 years ??Acceptable: ? <170 mg/dL ??Borderline high: ??170-199 mg/dL ??High: ? >or= 200 mg/dL Ages > or = 20 years ??Desirable: ?<200 mg/dL ??Borderline high: ??200-239 mg/dL ??High: ? >or= 240 mg/dL Literature References: 1. Expert Panel on Integrated Guidelines for Cardiovascular Health and Risk Reduction in Children and Adolescents. Pediatrics 2011;128:S213 2. NCEP Expert Panel. Circulation 2004;110:227 Current Interpretive Data was last revised on 2018. Triglycerides 102 <=149 mg/dL [facility] ([place]) Comment: Interpretive Data Ages < or = 9 years ??Acceptable: ? <75 mg/dL ??Borderline high: ??75-99 mg/dL ??High: ? >or= 100 mg/dL Ages 10 to 20 years ??Acceptable: ? <90 mg/dL ??Borderline high: ??90-129 mg/dL ??High: ? >or= 130 mg/dL Ages > or = 20 years ??Desirable: ?<150 mg/dL ??Borderline high: ??150-199 mg/dL ??High: ? 200-499 mg/dL ?Very high: ?? >or= 499 mg/dL Literature References: 1. Expert Panel on Integrated Guidelines for Cardiovascular Health and Risk Reduction in Children and Adolescents. Pediatrics 2011;128:S213 2. NCEP Expert Panel. Circulation 2004;110:227 Current Interpretive Data was last revised on 2018. HDL 32(L) >=40 mg/dL [facility] ([place]) Comment: Interpretive Data Ages < or = 19 years ??Acceptable: ? >45 mg/dL ??Borderline low: ?? 40-45 mg/dL ??Low: ? <40 mg/dL Ages > or = 20 years ??Desirable: ?>or= 60 mg/dL ??Low: ? <40 mg/dL Literature References: 1. Expert Panel on Integrated Guidelines for Cardiovascular Health and Risk Reduction in Children and Adolescents. Pediatrics 2011;128:S213 2. NCEP Expert Panel. Circulation 2004;110:227 Current Interpretive Data was last revised on 2018. LDL, calculated 148(H) <=129 mg/dL [facility] ([place]) Comment: Interpretive Data Ages < or = 19 years ??Acceptable: ? <110 mg/dL ??Borderline high: ??110-129 mg/dL ??High: ?>or= 130 mg/dL Ages > or = 20 years ??Optimal: ? <100 mg/dL ??Near optimal: ?100-129 mg/dL ??Borderline high: ?? 130-159 mg/dL ??High: ?>160 mg/dL Calculated using the Jimenez LDL-C estimating equation. This equation was implemented on 2024. Prior to this date LDL-C was estimated using the Friedewald equation. Literature References: 1. Expert Panel on Integrated Guidelines for Cardiovascular Health and Risk Reduction in Children and Adolescents. Pediatrics 2011;128:S213 2. NCEP Expert Panel. Circulation 2004;110:227 3. Tony Hopkins et al. EVELIA Cardiol. 2020 November 16;5(5):540-548. doi: 10.1001/jamacardio.2020.0013 Current Interpretive Data was last revised on 2024. Non-HDL Cholesterol 167 mg/dL [facility] ([place]) Comment: Interpretive Data Ages < or = 19 years ??Acceptable: ?<120 mg/dL ??Borderline high: ??120-144 mg/dL ??High: ?>145 mg/dL Ages > or = 20 years ??When triglycerides are >200 mg/dL, Non-HDL cholesterol is a secondary target of ? therapy with treatment goals that are 30 mg/dL greater than the LDL cholesterol target. ? Literature References: 1. Expert Panel on Integrated Guidelines for Cardiovascular Health and Risk Reduction in Children and Adolescents. Pediatrics 2011;128:S213 2. NCEP Expert Panel. Circulation 2004;110:227 Current Interpretive Data was last revised on 2018. Chol/HDL ratio 6 [facility] ([place]) Blood 06/29/2024 5:52 AM HORSE SHOER 06/29/2024 5:55 AM HORSE SHOER us Gretchen Lal MD LAB BLOOD ORDERABLES Fin al Result [facility] ([place]) 1 [facility] Department [place] [address] * (ABNORMAL) Basic metabolic panel (06/29/2024 5:52 AM HORSE SHOER) Sodium 135 135 - 145 mmol/L Potassium, pl 4.5 3.3 - 4.9 mmol/L [facility] ([place]) Comment:Moderately Hemolyzed Specimen. Results may be affected. Chloride 104 97 - 110 mmol/L [facility] ([place]) CO2 20(L) 22 - 32 mmol/L [facility] ([place]) Anion gap 11 2 - 15 mmol/L [facility] ([place]) BUN 7 6 - 25 mg/dL [facility] ([place]) Creatinine 0.69 0.60 - 1.10 mg/dL [facility] ([place]) Glucose 93 70 - 199 mg/dL [facility] ([place]) Comment: Interpretive Data Fasting glucose >/= 126 mg/dl is diagnostic for diabetes. ?? Fasting is defined as no caloric intake for at least 8 hours. Fasting glucose between 100 mg/dl to 125 mg/dl is diagnostic of prediabetes. In a patient with classic symptoms of hyperglycemia or hyperglycemic crisis, a random glucose >/= 200 mg/dl is diagnostic for diabetes. In the absence of unequivocal hyperglycemia, results should be confirmed by repeat testing. The classification and Diagnosis of Diabetes Diabetes Care 202; 46: S19-S40. Current interpretive data was last revised 2022. Calcium 9.0 8.5 - 10.3 mg/dL [facility] ([place]) Blood 06/29/2024 5:52 AM HORSE SHOER 06/29/2024 5:55 AM HORSE SHOER us Mitra Geronimo MD LAB BLOOD ORDERABLES Final Re sult [facility] ([place]) 1 [facility] Department [place] [address] * XR Chest PA Lateral 2 Views (06/29/2024 3:46 AM HORSE SHOER) Anatomical Region Laterality Modality Body, Chest N/A Computed Radiogr aphy 06/29/2024 4:14 AM HORSE SHOER Narrative 06/29/2024 4:17 AM HORSE SHOER EXAM DESCRIPTION: ?? XR CHEST PA LATERAL 2 VIEWS REASON FOR STUDY: ?? Shortness of breath ?? C/o shortness of breath and pain with breathing x1 week. Patient also has a cough. ?? Hx of COPD, pulmonary embolism ??Current smoker ?? TECHNIQUE: Frontal and lateral radiographic views of the chest acquired. COMPARISON: ?? Chest x-ray of April 27, 2023. FINDINGS: LUNGS/PLEURA: ??No focal consolidation or pneumothorax. No pleural effusion. ?? There is no significant change as compared to previous study. ?? HEART/MEDIASTINUM: Cardiac silhouette is ??normal. ??Remaining mediastinal silhouettes are unremarkable. HARDWARE/LINES/TUBES: ??None. BONES: ??No acute findings. IMPRESSION: ??No acute cardiopulmonary abnormality. THIS IS AN ELECTRONICALLY VERIFIED FINAL REPORT 06/29/2024 4:17 AM - Electronically signed by ??Sammi José M.D. SN: SN D: ??06/29/2024 4:17 AM T: ??06/29/2024 4:17 AM Report ID: [id number] Reading Location: ??[id number] Procedure Note Sammi José MD - 06/29/2024 EXAM DESCRIPTION: XR CHEST PA LATERAL 2 VIEWS REASON FOR STUDY: Shortness of breath C/o shortness of breath and pain with breathing x1 week. Patient also hasa cough. Hx of COPD, pulmonary embolism Current smoker TECHNIQUE: Frontal and lateral radiographic views of the chest acquired. COMPARISON: Chest x-ray of April 27, 2023. FINDINGS: LUNGS/PLEURA: No focal consolidation or pneumothorax. No pleuraleffusion. There is no significant change as compared to previous study. HEART/MEDIASTINUM: Cardiac silhouette is normal. Remaining mediastinal silhouettes are unremarkable. HARDWARE/LINES/TUBES: None. BONES: No acute findings. IMPRESSION: No acute cardiopulmonary abnormality. THIS IS AN ELECTRONICALLY VERIFIED FINAL REPORT 06/29/2024 4:17 AM - Electronically signed by Sammi José M.D. SN: SN Report ID: [id number] Reading Location: [id number] Peggy Munoz MD IMG XR PROCEDURES Final Result * Troponin T high-sensitivity series (baseline, 2hr, 4hr, 6hr) (06/29/2024 3:36 AM HORSE SHOER) Trop T hs <6 <=14 ng/L Comment: Interpretive Data For further hscTnT resources including the diagnostic algorithm and an aid in interpretation, copy and paste this link: [email or web address].testcatalog.org/[email or web address] Current Interpretive Data last revised 2020. Blood 06/29/2024 3:36 AM HORSE SHOER 06/29/2024 3:38 AM HORSE SHOER us Peggy Munoz MD LAB BLOOD ORDERABLES Final Resul t [facility] ([place]) 1 [facility] Department of Laboratories [place], [place] [id number] * eGFR (06/29/2024 3:36 AM HORSE SHOER) eGFR >90 >=60 mL/min/1. 73 m2 Comment: Interpretive Data Reference Interval Normal ?>/= 90 mL/min/1.73m2 Mildly decreased* ? 60 - 89 mL/min/1.73m2 Mildly to moderately decreased ?45 - 59 mL/min/1.73m2 Moderately to severely decreased ??30 - 44 mL/min/1.73m2 Severely decreased ?15 - 29 mL/min/1.73m2 Kidney Failure ?< 15 ??mL/min/1.73m2 *Relative to young adult level Estimated glomerular filtration rate is determined by the 2020 CKD-EPI equation recommended by the National Kidney Foundation (A Unifying Approach to GFR Estimation: Recommendations of the NKF-ASK Task Force on Reassessing the Inclusion of Race in Diagnosing Kidney Disease, JASN 202). The CKD-EPI equation should not be used for patients with unstable renal function and has not been validated in children and those over 70. Current interpretive data was last reviewed 2021. Blood 06/29/2024 3:36 AM HORSE SHOER 06/29/2024 3:38 AM HORSE SHOER us Peggy Munoz MD LAB BLOOD ORDERABLES Final Resul t [facility] ([place]) 1 [facility] Department [place] [address] * Differential, auto (06/29/2024 3:36 AM HORSE SHOER) Neutrophil abs 4.5 1.5 - 6.5 K/cumm Imm gran abs 0.0 0.0 - 0.1 K/cumm [facility] ([place]) Lymphocyte abs 1.4 0.8 - 3.3 K/cumm [facility] ([place]) Monocyte abs 0.7 0.2 - 0.8 K/cumm [facility] ([place]) Eosinophil abs 0.2 0.0 - 0.5 K/cumm [facility] ([place]) Basophil abs 0.1 0.0 - 0.1 K/cumm [facility] ([place]) Neutrophil pct 65.5 % [facility] ([place]) Comment: Interpretive Data Percent cell count reference ranges are not reported, since discordance with absolute values may lead to misinterpretation of CBC data. Current Interpretive Data was last revised on 2017. Imm gran pct 0.3 % [facility] ([place]) Comment: Interpretive Data Percent cell count reference ranges are not reported, since discordance with absolute values may lead to misinterpretation of CBC data. Current Interpretive Data was last revised on 2017. Lymphocyte pct 20.5 % [facility] ([place]) Comment: Interpretive Data Percent cell count reference ranges are not reported, since discordance with absolute values may lead to misinterpretation of CBC data. Current Interpretive Data was last revised on 2017. Monocyte pct 10.5 % [facility] ([place]) Comment: Interpretive Data Percent cell count reference ranges are not reported, since discordance with absolute values may lead to misinterpretation of CBC data. Current Interpretive Data was last revised on 2017. Eosinophil pct 2.3 % [facility] ([place]) Comment: Interpretive Data Percent cell count reference ranges are not reported, since discordance with absolute values may lead to misinterpretation of CBC data. Current Interpretive Data was last revised on 2017. Basophil pct 0.9 % [facility] ([place]) Comment: Interpretive Data Percent cell count reference ranges are not reported, since discordance with absolute values may lead to misinterpretation of CBC data. Current Interpretive Data was last revised on 2017. Blood 06/29/2024 3:36 AM HORSE SHOER 06/29/2024 3:38 AM HORSE SHOER us Peggy Munoz MD LAB BLOOD ORDERABLES Final Resul t Performing Organization Address City/[facility] Co de Phone Number [facility] ([place]) 1 [facility] Department [place] [address] * CBC with auto differential (06/29/2024 3:36 AM HORSE SHOER) WBC 6.9 3.8 - 9.9 K/cumm Hgb 14.2 11.9 - 15.5 g/dL [facility] ([place]) Hct 43.7 35.6 - 45.5 % [facility] ([place]) Plt 239 150 - 400 K/cumm [facility] ([place]) MPV 10.1 9.1 - 12.3 fL [facility] ([place]) RBC 4.69 3.90 - 5.20 M/cumm [facility] ([place]) MCV 93.2 81.3 - 96.4 fL [facility] ([place]) MCH 30.3 27.1 - 33.3 pg [facility] ([place]) MCHC 32.5 32.3 - 35.7 g/dL [facility] ([place]) RDW CV 13.2 11.1 - 14.9 % [facility] ([place]) RDW SD 45.0 35.7 - 48.1 fL [facility] ([place]) NRBC abs 0.00 0.00 - 0.01 K/cumm [facility] ([place]) Blood 06/29/2024 3:36 AM HORSE SHOER 06/29/2024 3:38 AM HORSE SHOER us Peggy Munoz MD LAB BLOOD ORDERABLES Final Resul t Performing Organization Address City/[facility] Co de Phone Number [facility] GONZALEZ ([place]) 1 [facility] Department [place] [address] * D-dimer, quantitative (06/29/2024 3:36 AM HORSE SHOER) D-Dimer 423 <=499 ng/mL FEU [facility] ([place]) Comment: Interpretive data FDA approved the D-dimer, in conjunction with a low or moderate pretest probability score, to exclude venous thromboembolic events (VTE) (PE and DVT) in outpatients when the D-dimer result is < 500 ng/ml FEU. ?? Evidence supports using an age-adjusted D-dimer cut-off for outpatients older than 50 (age x 10) to improve specificity without sacrificing sensitivity. Example: age 68, VTE cut-off 680 ng/ml FEU. References; Dle BARBER et al. Brit Med J. 2013;346:f2492. Casimiro et al. Annals Int Med. 2015;163:701-11. Current interpretive data was last revised on 2019. Blood 06/29/2024 3:36 AM HORSE SHOER 06/29/2024 5:45 AM HORSE SHOER us Peggy Munoz MD LAB BLOOD ORDERABLES Final Resul t Performing Organization Address [facility] Co de Phone Number IZAIAH GONZALEZ ([place]) 1 [facility] Department [place] [address] * (ABNORMAL) Comprehensive metabolic panel (06/29/2024 3:36 AM HORSE SHOER) Sodium 138 135 - 145 mmol/L Potassium, pl 3.9 3.3 - 4.9 mmol/L [facility] ([place]) Chloride 108 97 - 110 mmol/L [facility] ([place]) CO2 20(L) 22 - 32 mmol/L [facility] ([place]) Anion gap 10 2 - 15 mmol/L [facility] ([place]) BUN 8 6 - 25 mg/dL [facility] ([place]) Creatinine 0.76 0.60 - 1.10 mg/dL [facility] ([place]) Glucose 87 70 - 199 mg/dL [facility] ([place]) Comment: Interpretive Data Fasting glucose >/= 126 mg/dl is diagnostic for diabetes. ?? Fasting is defined as no caloric intake for at least 8 hours. Fasting glucose between 100 mg/dl to 125 mg/dl is diagnostic of prediabetes. In a patient with classic symptoms of hyperglycemia or hyperglycemic crisis, a random glucose >/= 200 mg/dl is diagnostic for diabetes. In the absence of unequivocal hyperglycemia, results should be confirmed by repeat testing. The classification and Diagnosis of Diabetes Diabetes Care 202; 46: S19-S40. Current interpretive data was last revised 2022. Calcium 8.9 8.5 - 10.3 mg/dL [facility] ([place]) Bilirubin, total 0.4 0.1 - 1.2 mg/dL [facility] ([place]) Protein, pl 6.5 6.5 - 8.5 g/dL [facility] ([place]) Albumin 4.1 3.5 - 5.0 g/dL [facility] ([place]) Alk phos 110 40 - 130 Units/L [facility] ([place]) ALT 9 7 - 45 Units/L [facility] ([place]) AST 14 10 - 45 Units/L [facility] ([place]) Comment: Hemolysis present. ??Results may be affected. Slightly Hemolyzed Specimen Blood 06/29/2024 3:36 AM HORSE SHOER 06/29/2024 3:38 AM HORSE SHOER us Peggy Munoz MD LAB BLOOD ORDERABLES Final Resul t [facility] ([place]) 1 [facility] Department [place] [address] * ECG 12 lead (06/29/2024 3:04 AM HORSE SHOER) 06/29/2024 3:04 AM HORSE SHOER Narrative [facility] - 06/29/2024 8:41 AM HORSE SHOER Vent Rate: 93 bpm RR Interval: 643 msec OK Interval: 153 msec QRS Duration: 86 msec QT Interval: 325 msec QTC Interval: 376 msec P-R-T [place]: 77 - 69 - 4 degrees IMPRESSION: SINUS RHYTHM NONSPECIFIC ST \T\ T-WAVE ABNORMALITY No significant change from prior EKG Electronically Signed By: Dr Guerrero Barnes us Peggy Munoz MD ECG ORDERABLES Final Result Performing Organization Address City/[facility] Co de Phone Number [facility] * eGFR (06/24/2024 9:17 AM HORSE SHOER) eGFR >90 >=60 mL/min/1. 73 m2 Comment: Interpretive Data Reference Interval Normal ?>/= 90 mL/min/1.73m2 Mildly decreased* ? 60 - 89 mL/min/1.73m2 Mildly to moderately decreased ?45 - 59 mL/min/1.73m2 Moderately to severely decreased ??30 - 44 mL/min/1.73m2 Severely decreased ?15 - 29 mL/min/1.73m2 Kidney Failure ?< 15 ??mL/min/1.73m2 *Relative to young adult level Estimated glomerular filtration rate is determined by the 2020 CKD-EPI equation recommended by the National Kidney Foundation (A Unifying Approach to GFR Estimation: Recommendations of the NKF-ASK Task Force on Reassessing the Inclusion of Race in Diagnosing Kidney Disease, JASN 2020). The CKD-EPI equation should not be used for patients with unstable renal function and has not been validated in children and those over 70. Current interpretive data was last reviewed 2021. Blood 06/24/2024 9:17 AM HORSE SHOER 06/24/2024 9:37 AM HORSE SHOER us Prasad Lopez MD LAB BLOOD ORDERABLES Final Res ult Performing Organization Address City/[facility]/ZIP Co de Phone Number [facility] ([place]) 1 [facility] Department [place] [address] * Differential, auto (06/24/2024 9:17 AM HORSE SHOER) Neutrophil abs 3.4 1.5 - 6.5 K/cumm Imm gran abs 0.0 0.0 - 0.1 K/cumm [facility] ([place]) Lymphocyte abs 2.4 0.8 - 3.3 K/cumm [facility] ([place]) Monocyte abs 0.6 0.2 - 0.8 K/cumm [facility] ([place]) Eosinophil abs 0.2 0.0 - 0.5 K/cumm [facility] ([place]) Basophil abs 0.1 0.0 - 0.1 K/cumm [facility] ([place]) Neutrophil pct 51.0 % [facility] ([place]) Comment: Interpretive Data Percent cell count reference ranges are not reported, since discordance with absolute values may lead to misinterpretation of CBC data. Current Interpretive Data was last revised on 2017. Imm gran pct 0.5 % [facility] ([place]) Comment: Interpretive Data Percent cell count reference ranges are not reported, since discordance with absolute values may lead to misinterpretation of CBC data. Current Interpretive Data was last revised on 2017. Lymphocyte pct 36.2 % [facility] ([place]) Comment: Interpretive Data Percent cell count reference ranges are not reported, since discordance with absolute values may lead to misinterpretation of CBC data. Current Interpretive Data was last revised on 2017. Monocyte pct 8.6 % [facility] ([place]) Comment: Interpretive Data Percent cell count reference ranges are not reported, since discordance with absolute values may lead to misinterpretation of CBC data. Current Interpretive Data was last revised on 2017. Eosinophil pct 2.9 % [facility] ([place]) Comment: Interpretive Data Percent cell count reference ranges are not reported, since discordance with absolute values may lead to misinterpretation of CBC data. Current Interpretive Data was last revised on 2017. Basophil pct 0.8 % [facility] ([place]) Comment: Interpretive Data Percent cell count reference ranges are not reported, since discordance with absolute values may lead to misinterpretation of CBC data. Current Interpretive Data was last revised on 2017. Blood 06/24/2024 9:17 AM HORSE SHOER 06/24/2024 9:37 AM HORSE SHOER us Prasad Lopez MD LAB BLOOD ORDERABLES Final Res ult [facility] ([place]) 1 [facility] [place] [address] * CBC with auto differential (06/24/2024 9:17 AM HORSE SHOER) WBC 6.6 3.8 - 9.9 K/cumm Hgb 14.7 11.9 - 15.5 g/dL [facility] ([place]) Hct 44.6 35.6 - 45.5 % [facility] ([place]) Plt 261 150 - 400 K/cumm [facility] ([place]) MPV 9.9 9.1 - 12.3 fL [facility] ([place]) RBC 4.84 3.90 - 5.20 M/cumm [facility] ([place]) MCV 92.1 81.3 - 96.4 fL [facility] ([place]) MCH 30.4 27.1 - 33.3 pg [facility] ([place]) MCHC 33.0 32.3 - 35.7 g/dL [facility] ([place]) RDW CV 13.1 11.1 - 14.9 % [facility] ([place]) RDW SD 44.2 35.7 - 48.1 fL [facility] ([place]) NRBC abs 0.00 0.00 - 0.01 K/cumm [facility] ([place]) Blood 06/24/2024 9:17 AM HORSE SHOER 06/24/2024 9:37 AM HORSE SHOER us Prasad Lopez MD LAB BLOOD ORDERABLES Final Res ult [facility] ([place]) 1 [facility] [place] [address] * Basic metabolic panel (06/24/2024 9:17 AM HORSE SHOER) Sodium 140 135 - 145 mmol/L Potassium, pl 4.3 3.3 - 4.9 mmol/L [facility] ([place]) Chloride 105 97 - 110 mmol/L [facility] ([place]) CO2 24 22 - 32 mmol/L [facility] ([place]) Anion gap 11 2 - 15 mmol/L [facility] ([place]) BUN 6 6 - 25 mg/dL [facility] ([place]) Creatinine 0.80 0.60 - 1.10 mg/dL [facility] ([place]) Glucose 91 70 - 199 mg/dL [facility] ([place]) Comment: Interpretive Data Fasting glucose >/= 126 mg/dl is diagnostic for diabetes. ?? Fasting is defined as no caloric intake for at least 8 hours. Fasting glucose between 100 mg/dl to 125 mg/dl is diagnostic of prediabetes. In a patient with classic symptoms of hyperglycemia or hyperglycemic crisis, a random glucose >/= 200 mg/dl is diagnostic for diabetes. In the absence of unequivocal hyperglycemia, results should be confirmed by repeat testing. The classification and Diagnosis of Diabetes Diabetes Care 2021; 46: S19-S40. Current interpretive data was last revised 2022. Calcium 9.1 8.5 - 10.3 mg/dL [facility] ([place]) Blood 06/24/2024 9:17 AM HORSE SHOER 06/24/2024 9:37 AM HORSE SHOER us Prasad Lopez MD LAB BLOOD ORDERABLES Final Res ult [facility] ([place]) 1 [facility] Department [place] [address] * NM MPI SPECT (Rest and/or Stress) Multiple Studies (06/19/2024 10:45 AM HORSE SHOER) Anatomical Region Laterality Modality Body N/A Electrocardiogra phy Narrative 06/21/2024 9:20 PM HORSE SHOER Table formatting from the original result was not included. [facility] [address] [address] Nuclear MPI Pharmaceutical Study Patient Name: Yazmin Etienne Gender: female : 1980 Date of Study: 06/19/24 Ordering Provider: Prasad Lopez MD Primary care Provider: Alicia Cueva PA Pt BMI: 28 Examination Myocardial Perfusion Imaging: Pharmacologic/Spect with Gated Imaging and Ejection Fraction Measurement. Cardiac History none . Reason for Examination chest pain. Cardiac Risk Factors hypertension and dyslipidemia. Stress Procedure Baseline or Resting EKG Normal Pharmaceutical Parameters: Chemical Test duration: 6 min 40 sec. Baseline BP: 106 / 76 mm Hg Baseline HR: 75 /min Peak BP: 121 / 87 mm Hg Peak HR: 123 /min 69 % of PMHR HR Response to Pharmaceutical: Normal BP Response to Pharmaceutical: Normal Functional Capacity: below average ST changes: None Symptoms during Pharmaceutical Injection : chest pain, short of breath, resolved during recovery, lingering light headedness Reasons for Termination: ??shortness of breath, end of protocol ?? Nuclear Procedure Radiopharmaceutical: 10.8 mCi Tc-99M Tetrofosmin IV for rest and 30.2 mCi Tc-99M Tetrofosmin IV for stress. Protocol: Standard myocardial perfusion images were obtained after resting injection of Tc-99M Tetrofosmin intravenously. Resting images were obtained after a 30 minutes delay. The modified Lito Protocol was initiated and an intravenous infusion of 0.4 mg/5ml Regadenoson was given over a 10 second period under the supervision of the physician. Tc-99M tetrofosimin was injected intravenously 10-20 seconds post lexiscan/saline flush injection. The patient walked a total of 1 minute 30 seconds, reaching stage 1 of the modified Lito Protocol, then sat down due to shortness of breath. Standard myocardial images were obtained after a 30 minute delay.The overall quality of the study is good. Motion correction was not performed. Images are obtained with a solid state camera. Rest images are acquired in the upright position and stress images are acquired in both the upright and supine positions Regadenoson MPI Stage Time BP HR Sitting 0948 118/82 66 Standing 0947 106/76 75 Regadenoson 0955 ?? 0957 ??116 ? Recovery 0957 ?? 0958 121/87 80 ? Images Interpretation Gated Spect imaging reveals a medium-sized partly reversible perfusion defect of moderate severity in the proximal to mid septal wall. The defect is nontransmural in nature. Wall motion normal. Wall function normal with LVEF of 62% No LV dilatation present. No transischemic dilatation present. Impression Pharmaceutical Myocardial perfusion imaging is abnormal. Proximal to mid septal wall partially reversible nontransmural defect suggestive of NSTEMI. Wall motion normal. LVEF = 62% Chest pain and shortness of breath noted with 1 minute 30 seconds on the treadmill. Nonspecific st/t changes noted. Compared to the prior study from 01/27/2023, new partly reversible ischemia is noted in the proximal to mid septal wall. Recommendation Left Cardiac Catherization. Finding discussed with the patient personally. Stress myocardial perfusion imaging has a known 10-15% false negative rate and a small (5-10%) false positive rate. Stress test supervised by Angela Crystal NP. Images interpreted by Prasad Lopez MD. us Prasad Lopez MD IMG NM PROCEDURES Final Result * TRANSTHORACIC ECHO (TTE) COMPLETE W DOPPLER/CF WO CONTRAST (06/19/2024 8:17 AM HORSE SHOER) LV EF 62 % CARDIOREPORT Anatomical Region Laterality Modality Ultrasound 06/19/2024 7:30 AM HORSE SHOER Narrative 06/19/2024 6:17 PM HORSE SHOER Patient name: Yazmin Etienne Date of test: 06/19/2024 Type of test: TTE w/Doppler [facility] #: 0 Date of : 1980 (F) Quilt Sewer: Trevor Betts RDCS Referring Physician: PRASAD LOPEZ MD Contrast Agent: Contrast Administered by: Supervised/Interpreted by: Prasad Lopez MD Diagnosis: Location: [facility] Reason for test: CP, CAD MV Structure: Normal, ?MV Motion: Normal, ?? Mitral Annulus: Normal AV Structure: tricuspid and is Normal, ?? AV Motion: Normal Aotic root: Normal, ?TM: Normal, ?? PV: Normal Valvular Vegetations: none seen, ?Mass/Thrombi: none seen RA: Normal Measurements: ?M-Mode ?Normal ? Aotic Root: ? <3.8 ? LA: ? <3.8 ? RV: ? <2.8 ? LV(ED): ? <5.7 ? LV(ES): ? Variable ?2D Linear Normal ? Aotic Root: 2.7 cm ?<3.6 ? Ao Indexed: 1.5 cm/M2 <2.0 ? LA: ? 2.8 cm ?<3.8 ? RV: ? 3.1 cm ?<4.2 ? LV(ED): ? 4.5 cm ?<5.3 ? LV(ES): ? 3.3 cm ?<3.5 ?2D Vol. ?? Normal ?Indexed ?? Indexed Normal RA: ? 27.0 ml ? 14.9 ml/M2 ?9-33 ? LA: ? 36.0 ml ? 19.9 ml/M2 ?16-34 ? RV: ? <11.6 ? LV(ED): ? 90.0 ml ?? 46-106 ?49.7 ml/M2 ?<62 ? LV(ES): ? 34.0 ml ?? 14-42 ? 18.8 ml/M2 ?<25 ?3D Vol. ? Indexed Normal LV(ED): ?<62 ? LV(ES): ?<24 ? LV EF: 62 % ?? (Normal: >=54%) ?? LV Septum: 1.0 cm ?(Normal: <0.9 cm) Wall Motion Scoring (1=Normal 2=Hypo 3=Akinetic 4=Dyskin./Aneurysm 0=Not visualized) Parasternal Long [place]:MAS=1 BAS=1 MIL=1 WILLIAM=1 Parasternal Short [place]:MAS=1 MIS=1 MS=1 MIL=1 MAL=1 MA=1 Apical 4 Chambers:=1 MIS=1 BIS=1 BAL=1 MAL=1 AL=1 AC=1 Apical 2 Chambers:AI=1 MS=1 BI=1 BA=1 MA=1 AA=1 AC=1 LV Global Longitudinal Strain: -19.5% ??(Normal <-17%) RV Global Longitudinal Strain: LV Function: Normal LV Ejection Fraction, ??(EF=54-74%) RV Function: Normal Septal Motion: Normal Pericardial Effusion: none seen Atrial Septum: Normal DOPPLER/COLOR FLOW DOPPLER RESULTS: Diastolic Function: Normal Tricuspid Valve: mild TV regurgitation Pulmonic Valve: normal PV AV Regurgitation: No AR seen AV Stenosis: no AV Area: ??cm2 AV Pressure Gradient (mmHg): Mean: 0, Peak:0 MV Regurgitation: No MR seen MV Stenosis: no MS MV Area: ??cm2 MV Pressure Gradient (mmHg): Mean: 0 MV ERO: ??cm Regurg. Vol.: ??ml/beat Regurg. Frac.: ??% PA Pressure: 15+RA mmHg DOPPLER/COLOR FOLOW DOPPLER COMMENTS: No AR seen, No MR seen, no , no MS, mild TV regurgitation, normal PV. Diastolic function: Normal SUMMARY: LA is normal. Normal RV cavity size. LV cavity size is normal. Normal LV wall thickness/mass. Normal Inferior vena cava. Normal aorta. ??No AR seen, No MR seen, no , no MS, mild TV regurgitation, normal PV. Diastolic function: Normal. LVEF 62%.Normal global LV Myocardial longitudinal function and LV strain pattern. Confirmed on ??06/19/2024 - 18:17:02 by Prasad Lopez MD By signing this report, the attending heating element builder certifies that he or she has personally supervised and interpreted the echocardiogram and has reviewed and or edited and agrees with the written comments contained within the report. Procedure Note Prasad Lopez MD - 06/19/2024 Patient name: Yazmin Etienne Date of test: 06/19/2024 Type of test: TTE /Doppler [facility] #: 0 Date of : 1980 (F) Quilt Sewer: Trevor Betts [facility] Referring Physician: PRASAD LOPEZ MD Contrast Agent: Contrast Administered by: Supervised/Interpreted by: Prasad Lopez MD Diagnosis: Location: [facility] Reason for test: CP, CAD MV Structure: Normal, MV Motion: Normal, Mitral Annulus: Normal AV Structure: tricuspid and is Normal, AV Motion: Normal Aotic root: Normal, TM: Normal, PV: Normal Valvular Vegetations: none seen, Mass/Thrombi: none seen RA: Normal Measurements: M-Mode Normal Aotic Root: <3.8 LA: <3.8 RV: <2.8 LV(ED): <5.7 LV(ES): Variable 2D Linear Normal Aotic Root: 2.7 cm <3.6 Ao Indexed: 1.5 cm/M2 <2.0 LA: 2.8 cm <3.8 RV: 3.1 cm <4.2 LV(ED): 4.5 cm <5.3 LV(ES): 3.3 cm <3.5 2D Vol. Normal Indexed Indexed Normal RA: 27.0 ml 14.9 ml/M2 9-33 LA: 36.0 ml 19.9 ml/M2 16-34 RV: <11.6 LV(ED): 90.0 ml 46-106 49.7 ml/M2 <62 LV(ES): 34.0 ml 14-42 18.8 ml/M2 <25 3D Vol. Indexed Normal LV(ED): <62 LV(ES): <24 LV EF: 62 % (Normal: >=54%) LV Septum: 1.0 cm (Normal: <0.9 cm) Wall Motion Scoring (1=Normal 2=Hypo 3=Akinetic 4=Dyskin./Aneurysm 0=Not visualized) Parasternal Long [place]:MAS=1 BAS=1 MIL=1 WILLIAM=1 Parasternal Short [place]:MAS=1 MIS=1 MS=1 MIL=1 MAL=1 MA=1 Apical 4 Chambers:=1 MIS=1 BIS=1 BAL=1 MAL=1 AL=1 AC=1 Apical 2 Chambers:AI=1 MS=1 BI=1 BA=1 MA=1 AA=1 AC=1 LV Global Longitudinal Strain: -19.5% (Normal <-17%) RV Global Longitudinal Strain: LV Function: Normal LV Ejection Fraction, (EF=54-74%) RV Function: Normal Septal Motion: Normal Pericardial Effusion: none seen Atrial Septum: Normal DOPPLER/COLOR FLOW DOPPLER RESULTS: Diastolic Function: Normal Tricuspid Valve: mild TV regurgitation Pulmonic Valve: normal PV AV Regurgitation: No AR seen AV Stenosis: no AV Area: cm2 AV Pressure Gradient (mmHg): Mean: 0, Peak:0 MV Regurgitation: No MR seen MV Stenosis: no MS MV Area: cm2 MV Pressure Gradient (mmHg): Mean: 0 MV ERO: cm Regurg. Vol.: ml/beat Regurg. Frac.: % PA Pressure: 15+RA mmHg DOPPLER/COLOR FOLOW DOPPLER COMMENTS: No AR seen, No MR seen, no , no MS, mild TV regurgitation, normal PV. Diastolic function: Normal SUMMARY: LA is normal. Normal RV cavity size. LV cavity size is normal. Normal LV wall thickness/mass. Normal Inferior vena cava. Normal aorta. No AR seen, No MR seen, no , no MS, mild TV regurgitation, normal PV. Diastolic function: Normal. LVEF 62%.Normal global LV Myocardial longitudinal function and LV strain pattern. Confirmed on 06/19/2024 - 18:17:02 by Prasad Lopez MD By signing this report, the attending heating element builder certifies that he or she has personally supervised and interpreted the echocardiogram and has reviewed and or edited and agrees with the written comments contained within the report. Prasad Lopez MD CV ECHO PROCEDURES Final Resul t from Last 3 Months Insurance [facility] Advance Directives For more information, please contact: [phone] * Full Code (Latest Code Status on File) Date Activated Date Inactivated Comments 07/20/2024 8:15 AM 07/20/2024 2:46 PM * Full Code Date Activated Date Inactivated Comments 07/20/2024 8:15 AM 07/20/2024 8:15 AM * Full Code Date Activated Date Inactivated Comments 06/29/2024 5:37 PM 06/30/2024 7:48 PM * Full Code Date Activated Date Inactivated Comments 11/05/2023 7:04 AM 11/05/2023 11:25 AM * Full Code Date Activated Date Inactivated Comments 11/05/2023 7:04 AM 11/05/2023 7:04 AM Care Teams Chemical Processing Laborer Relationship Specialty Start Date End Date Alicia Cueva PA [address] [place] [id number] PCP - General Physician Paleontological Helper 05/13/22
--- OUTSIDE RECORDS SUMMARY | 2024-08-11 13:54 | XMS_ITS | Encounter Summary ---
Author Organization [facility] Address [address] [place] [address] Phone Care Team Providers Care Decision Support Manager Name Role Phone Alicia Cueva Primary Care Provider [phone] Encounter Details Date Type Department Care Team (Late st Contact Info) Description 08/11/2024 Telephone [facility] Cardiology [address] [facility] 8th [place] [address] [place] [address] Abdoulaye Radford MD [address] [facility] [address] [place] [address] Social History Tobacco Use Types Packs/Day Years Used Date Smoking Tobacco: Every Day Cigarettes 0.3 29.1 Started: 1995 Vaping Passive Smoke Exposure: Current Smokeless Tobacco: Never Comments:Vapes everyday whil e at work, 5days per week Alcohol Use [...] on file Legal Sex Female 3:36 PM PRINTING SERVICES COORDINATOR Gender Identity Not on file Sexual Orientation Not on file 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 Advised patient that she should go to ED for eval. Patient will go to ED with the next hour. 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 TING SERVICES COORDINATOR * Telephone Encounter - Sarah Hussein - 08/11/2024 9:18 AM CST Prabhakar Pt stating she has been having pain on the left side of her neck and shoulder area for the past week. The pain seems to be getting worse - using a heating pad does not seem to be helping. BP this AM was 77/59. Pt has not been feeling well. Pls return call to discuss. 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 She has her phone right with her and will answer the call. TING SERVICES COORDINATOR documented in this encounter Plan of Treatment Upcoming Encounters Date Type Department Care Team (Latest Contact Info) Description 02/02/2025 11:00 AM CDT Hospital Encounter [facility] [address] [place] [address] Janet Em MD [address] [facility] [address], [place] [address] 02/02/2025 11:00 AM CDT - 02/02/2025 11:55 AM CDT Surgery [facility] [address] [place] [address] Janet Em MD [address] [place] [address] [address] [place] [id number] ESOPHAGOGASTRODUODENOSCOPY Scheduled Procedures Name Priority Associated Diagnoses Date/Ti me ESOPHAGOGASTRODUODENOSCOPY Diarrhea, unspecified type Esophagitis 02/02/2025 11:00 AM CDT COLONOSCOPY Diarrhea, unspecified type Esophagitis 02/02/2025 11:00 AM CDT documented as of this encounter Visit Diagnoses Not on filedocumented in this encounter Care Teams Decision Support Manager Relationship Specialty Start Date End Date Alicia Cueva PA [address] [place] [id number] PCP - General Physician Sprinkler Fitter 05/13/22 documented as of this encounter
--- OUTSIDE RECORDS SUMMARY | 2024-08-11 13:54 | XMS_ITS | Clinical Summary ---
Author Organization [facility] Address [address] [place] [address] Care Team Providers Care Marketing Programs Specialist Name Role Phone Alicia Cueva Primary Care Provider [phone] Allergies Active Allergy Reactions Criticality Noted Date [...] (INCRUSE ELLIPTA) 62.5 mcg/actuation blister with deviceIndicati ons:Asthma-ORACLE HYPERION CONSULTANT D overlap syndrome (HCC) Inhale 1 puff (62.5 mcg total) daily 30 each 11 02/16/20 24 025 Active famotidine (PEPCID) 40 mg tabletIndicati ons:Laryngopha ryngeal reflux (LPR) Take 1 tablet (40 mg total) by mouth nightly 90 tablet 3 04/17/20 24 025 Active ibuprofen (ADVIL,MOTRIN) 800 mg tablet Take by mouth every 8 (eight) hours as needed 05/03/20 Active hydrOXYzine (ATARAX) 25 mg tablet Take [...] 02/16/2024 Assessment & Plan (05/29/2024 9:55 AM SHOT FIREMAN): Last level was 149 in 2022 PFT with decrease in FEV1 Level 139 January 2024 Assessment & Plan (02/16/2024 3:06 PM CDT): Last level was 149 in 2022 PFT with decrease in FEV1 I will recheck her levels today Asthma-COPD overlap syndrome 02/16/2024 Assessment & Plan (05/29/2024 9:56 AM SHOT FIREMAN): Continue Dulera 200 twice daily She is [...] 12/28/2023 Assessment & Plan (05/29/2024 9:59 AM SHOT FIREMAN): - Smoking cessation counseling and techniques reviewed at length - Avoid triggers and use distraction techniques - Participate in support groups - Information given regarding [place] Tobacco Quit line: 6-166-VJTI-YES for free services - 4 minutes spent [...] in support groups - Information given regarding [place] Tobacco Quit line: 6-906-ZPZL-YES for free services - 4 minutes spent discussing cessation Assessment & Plan (12/28/2023 9:25 AM CDT): - Smoking cessation counseling and techniques reviewed at length - Avoid triggers and use distraction techniques - Information given regarding [place] Tobacco Quit line: 7-172-YSVO-YES for free services - 4 minutes spent discussing cessation Vapes nicotine containing substance 12/28/2023 Assessment & Plan (12/28/2023 9:25 AM CDT): She admits this is significantly increased in the last 3 months in particular with stressors at home and trying to cut down on cigarettes We have discussed complete cessation Laryngopharyngeal reflux (LPR) 12/28/2023 Assessment & Plan (05/29/2024 10:01 AM SHOT FIREMAN): Continue pantoprazole 40 mg twice daily Elevate [...] 08/13/2023 Assessment & Plan (05/29/2024 9:58 AM SHOT FIREMAN): PFT does not show obstruction- rather air [...] 2023 Assessment & Plan (08/13/2023 11:32 AM SHOT FIREMAN): She has had little benefit from inhaled therapy, leading me to believe that her dyspnea is not primary pulmonary in origin. PFT shows air trapping but not obstruction. She is on triple therapy and has tried multiple inhalers. I have encouraged smoking cessation A1AT MS Level 149 with no obstruction on PFT Multiple nodules of lung 08/13/2023 Assessment & Plan (08/13/2023 10:59 AM SHOT FIREMAN): Resolved Dysphagia 06/24/2023 Assessment & Plan (12/27/2023 [...] GI Assessment & Plan (08/13/2023 11:07 AM SHOT FIREMAN): Her PFT shows no fixed obstriction, but [...] (02/04/2021): Added automatically from request for surgery [id number] Right elbow tendinitis 02/01/2021 Insomnia 09/06/2019 Resolved [...] 08/13/202312/17 Assessment & Plan (08/13/2023 10:59 AM SHOT FIREMAN): - Smoking cessation counseling and techniques reviewed at length - Literature reviewed - Avoid triggers and use distraction techniques - Participate in support groups - Information given regarding [place] Tobacco Quit line: 3-972-BAGX-YES for free services - 4 minutes spent discussing cessation I have also strongly encouraged her to quit vaping Encounters Date Type Department Care Team Description 5 Telephone [facility] Cardiology [address] [facility] 8th [place] [address] [place] [address] Prasad Lopez MD 5 2:00 PM SHOT FIREMAN Office Visit [facility] Sleep Medicine at [address] [place] [address] Jody Spencer MD Hypersomnolence (Primary Dx); Snoring; Overweight; Insomnia, unspecified type 5 Telephone [facility] Cardiology [address] [facility] 8th [place] [address] [place] [address] Prasad Lopez MD Hypotension; Med Management (Amlodipine held) 5 1:13 PM SHOT FIREMAN - 5 11:59 PM SHOT FIREMAN Hospital Encounter [facility] ([facility]) [address] [place] [address] Discharge Disposition: Discharge to home or self care 5 1:13 PM SHOT FIREMAN - 5 11:59 PM SHOT FIREMAN Hospital Encounter [facility] ([facility]) [address] [place] [address] Discharge Disposition: Discharge to home or self care 5 1:13 PM SHOT FIREMAN - 5 11:59 PM SHOT FIREMAN Hospital Encounter [facility] ([facility]) [address] [place] [address] Other chest pain; Coronary artery disease involving jackson coronary artery of jackson heart without angina pectoris; Precordial chest pain; Dyspnea on exertion Discharge Disposition: Discharge to home or self care [address] [facility] Gastroenterology at [address] [place] [phone] Hailey Moran Schedule EGD & Colonoscopy 5 Telephone [facility] [address] [place] [address] [address], [place] [address] Annika Mackenzie MA 5 9:26 AM SHOT FIREMAN Anesthesia Event [address] [address] Jonah Stahl MD Zirkelbach, Cecilia A., CRNA 5 9:00 AM SHOT FIREMAN - 5 9:55 AM SHOT FIREMAN Surgery [address] [address] Janet Em MD ESOPHAGOGASTRODUODENOSCOPY ESOPHAGEAL GUIDE WIRE 5 7:59 AM SHOT FIREMAN - 5 10:46 AM SHOT FIREMAN Hospital Encounter [facility] [address] [place] [address] Janet Em MD Encounter for screening colonoscopy; Dysphagia, unspecified type; Odynophagia; Colitis; Globus sensation; Diarrhea of presumed infectious origin Discharge Disposition: Discharge to home or self care 4 10:00 AM SHOT FIREMAN Office Visit [facility] Cardiology [address] [facility] [address] [place] [address] Prasad Lopez MD Other chest pain (Primary Dx); Coronary artery disease involving jackson coronary artery of jackson heart without angina pectoris; Precordial chest pain; Dyspnea on exertion 4 Telephone [facility] Scheduling [address] [place] [address] Prasad Lopez MD 4 6:00 AM SHOT FIREMAN - 4 11:59 PM SHOT FIREMAN Hospital Encounter [facility] [address] [place] [address] Hypersomnolence Discharge Disposition: Discharge to home or self care 4 7:00 PM SHOT FIREMAN - 4 11:59 PM SHOT FIREMAN Hospital Encounter [facility] 1 [place] [address] SARAHY (obstructive sleep apnea ) Discharge Disposition: Discharge to home or self care [address] [facility] Gastroenterology at [place] [address] [facility] [address] [place] [address] Carmina Cartagena MA 4 Telephone [facility] Cardiology [address] [place] [address] 8th [place] [address] [place] [address] Prasad Lopez MD Appointment 4 11:00 AM SHOT FIREMAN - 4 12:05 PM SHOT FIREMAN Surgery [facility] Cardiac Catheterization [address] [place] [address] Guerrero Barnes MD LEFT HEART CATHETERIZATION WITH CORONARY ANGIOGRAPHY AND WITH OR WITHOUT LEFT VENTRICULOGRAM [id number] 4 3:56 AM SHOT FIREMAN - 4 3:48 PM SHOT FIREMAN Emergency [facility] Acute Medicine [address] [place] [address] Peggy Munoz MD Abegunde, Veronica O., MD Quaizar, Huzaifa, MD Abnormal stress test (Primary Dx); Other chest pain Discharge Disposition: Discharge to home or self care 4 Telephone [facility] Cardiology [address] [facility] 8th [place] [address] [place] [address] Prasad Lopez MD 4 9:00 AM SHOT FIREMAN Lab [address] [address] Pre-operative cardiovascular examination 4 8:45 AM SHOT FIREMAN Office Visit [facility] [address] [place] [address] [place] [phone] Prasad Lopez MD Pre-operative cardiovascular examination (Primary Dx) 4 8:30 AM SHOT FIREMAN Ancillary Procedure [facility] [address] [place] [address] [address] [place] [address] Precordial chest pain; Hyperlipidemia, unspecified hyperlipidemia type; Coronary artery disease, unspecified vessel or lesion type, unspecified whether angina present, unspecified whether jackson or transplanted heart 4 7:30 AM SHOT FIREMAN Ancillary Procedure [address] [place] [phone] Precordial chest pain; Hyperlipidemia, unspecified hyperlipidemia type; Coronary artery disease, unspecified vessel or lesion type, unspecified whether angina present, unspecified whether jackson or transplanted heart [address] [facility] Gastroenterology at [address] [place] [phone] Yadira Houston LPN [address] [facility] Gastroenterology at [address] [place] [phone] Janet Em MD 4 8:30 AM SHOT FIREMAN Office Visit [facility] Pulmonary at [address] [place] [phone] Cailin Bridges NP Asthma-COPD overlap syndrome (HCC) (Primary Dx); Centrilobular emphysema (HCC); Laryngopharyngeal reflux (LPR); Alpha 1-antitrypsin PiMS phenotype; Cigarette nicotine dependence without complication [address] [facility] Gastroenterology at [address] [place] [address] Carmina Cartagena MA 4 1:15 PM SHOT FIREMAN Office Visit [facility] Sleep Medicine at [address] [place] [address] Jody Spencer MD Hypersomnia (Primary Dx); Sleep related hypoventilation in conditions classified elsewhere; Overweight; Snoring; Insomnia, unspecified type; SARAHY (obstructive sleep apnea); Hypersomnolence from Last 3 Months Surgical History Surgery Date Site/Laterality Comments CHOLECYSTECTOMY TOTAL ABDOMINAL HYSTERECTOMY W/ BILATERAL SALPINGOOPHORECTOMY UPPER GASTROINTESTINAL ENDOSCOPY 07/24/2024 COLONOSCOPY 07/20/2024 1st CARDIAC CATHETERIZATION 06/30/2024 No stents placed. Medical History Medical History Date Comments Depression Bipolar 2 disorder (CMS/HCC) (HCC) COPD (chronic obstructive pulmonary disease) (HC C) Back pain HLD (hyperlipidemia) Pulmonary embolism (HCC) Asthma Vapes nicotine containing substance 12/28/2023 Laryngopharyngeal reflux (LPR) 12/28/2023 Asthma-COPD overlap syndrome (HCC) 02/16/2024 Family History Medical History Relation Name Comments No Known Problems Brother Estranged, does not know medical history ADD / ADHD Daughter 1 Sleep apnea Daughter 1 uses CPAP, is o verweight ADD / ADHD Daughter 2 No Known Problems Daughter 3 No Known Problems Father Does not k now father Deep vein thrombosis Mother Hypertension Mother boderline diabetic Mother Blood Clot Other Kidney disease Other Seizures Other No Known Problems Sister 1 Sleep apnea Sister 2 No Known Problems Son Relation Name Status Comments Brother Daughter 1 Daughter 2 Daughter 3 Father Mother Alive Other Sister 1 Sister 2 Son Social History Tobacco Use Types Packs/Day Years [...] on file Legal Sex Female 3:36 PM SHOT FIREMAN Gender Identity Not on file Sexual Orientation Not on file 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 Not on file Not on file Not on file Obstetrics History Last Filed Vital Signs Vital Sign Reading Time Taken Comments Blood Pressure 104/66 08/07/2024 1:44 PM SHOT FIREMAN Pulse 78 08/07/2024 1:44 PM SHOT FIREMAN Temperature 36.9 ??C (98.5 ??F) 07/20/2024 10:[address] Respiratory Rate 18 07/20/2024 10:32 AM SHOT FIREMAN Oxygen Saturation 97% 08/07/2024 1:44 PM SHOT FIREMAN Inhaled Oxygen Concentration - - Weight 77.8 kg (171 lb 9.6 oz) 08/07/2024 1:44 P M SHOT FIREMAN Height 162.6 cm (5' 4.02 ) 08/07/2024 1:44 PM CS T Body Mass Index 29.44 08/07/2024 1:44 PM SHOT FIREMAN Plan of Treatment Upcoming Encounters Date Type Department Care Team (Latest Contact Info) Description 02/02/2025 11:00 AM CDT Hospital Encounter [address] [address] Janet Em MD 4 [facility] [address] [place] [address] 02/02/2025 11:00 AM CDT - 02/02/2025 11:55 AM CDT Surgery [facility] [address] [place] [address] Janet Em MD 4 [facility] [address] [place] [address] ESOPHAGOGASTRODUODENOSCOPY Scheduled Procedures Name Priority Associated Diagnoses Date/Ti me ESOPHAGOGASTRODUODENOSCOPY Diarrhea, unspecified type Esophagitis 02/02/2025 11:00 AM CDT COLONOSCOPY Diarrhea, unspecified type Esophagitis 02/02/2025 11:00 AM CDT Health Maintenance Due Date Last Done Comments Breast Cancer Screening-Mammogram 1980 Depression Screening 1980 Hepatitis C Screening 1980 Pneumococcal vaccine <65 (1 of 2 - PCV) 10/12/1985 DTaP/Tdap/Td Vaccine (1 - Tdap) 10/12/1990 Varicella Vaccines (1 of 2 - 13+ 2-dose series) 10/12/1992 Hepatitis B Screening 10/12/1997 Regular Well Visit/Exam 18-64 10/12/1997 Influenza Vaccine (#1) 2024 0, 08/06/2017 HPV Vaccines Aged Out No longer eligi ble based on patient's age to complete this topic Medical Devices Implanted Type Area Photogrammetric Tech Device Identifier Shelf Expiration Date Model / Serial / Lot HYLA Mobile Angio-Seal Vip 6fr Closere Device [id number] - [id number] Implanted:Qty: 1 on 06/30/2024 by Guerrero Barnes MD at [facility] [employer] Mobile 11/11/2024 [id number] / / [id number] Procedures Procedure Name Priority Date/Time Associated Diagnosis Comments PET STRESS TEST Schedule Routine, Read Routine (OP Routine) 07/27/2024 3:52 PM SHOT FIREMAN Other chest pain Coronary artery disease involving jackson coronary artery of jackson heart without angina pectoris Precordial chest pain Dyspnea on exertion PET/CT MYOCARDIAL PERFUSION IMAGING (MULTIPLE) Schedule Routine, Read Routine (OP Routine) 07/27/2024 3:52 PM SHOT FIREMAN Other chest pain Coronary artery disease involving jackson coronary artery of jackson heart without angina pectoris Precordial chest pain Dyspnea on exertion SURGICAL PATHOLOGY STAT 07/20/2024 1:34 PM SHOT FIREMAN Encounter for screening colonoscopy Dysphagia, unspecified type Odynophagia Colitis Globus sensation Diarrhea of presumed infectious origin ENDO ADD ON ESOPHAGOGASTRODUODENOSCOPY BIOPSY 07/20/2024 9:21 AM SHOT FIREMAN Encounter for screening colonoscopy Dysphagia, unspecified type Odynophagia Colitis Globus sensation Diarrhea of presumed infectious origin ESOPHAGOGASTRODUODENOSCOPY ESOPHAGEAL GUIDE WIRE 07/20/2024 9:21 AM SHOT FIREMAN Encounter for screening colonoscopy Dysphagia, unspecified type Odynophagia Colitis Globus sensation Diarrhea of presumed infectious origin EGD 07/20/2024 8:01 AM SHOT FIREMAN MULTIPLE SLEEP LATENCY TEST Routine 07/15/2024 Hypersomnolence PSG (SIMPLE) Routine 07/15/2024 SARAHY (obstructive sleep apnea) LEFT HEART CATHETERIZATION WITH CORONARY ANGIOGRAPHY AND WITH AND WITHOUT LEFT VENTRICULOGRAM Routine 06/30/2024 12:12 PM SHOT FIREMAN Abnormal stress test EGFR Routine 06/30/2024 3:24 AM SHOT FIREMAN DIFFERENTIAL AUTO Routine 06/30/2024 3:24 AM SHOT FIREMAN BASIC METABOLIC PANEL Routine 06/30/2024 3:24 AM SHOT FIREMAN CBC WITH AUTO DIFFERENTIAL Routine 06/30 3:24 AM SHOT FIREMAN APTT Routine 06/30/2024 3:24 AM SHOT FIREMAN PROTIME-INR Routine 06/30/2024 3:24 AM SHOT FIREMAN ECG 12-LEAD Routine 06/30/2024 3:10 AM SHOT FIREMAN COVID-19 CORONAVIRUS RNA Routine 024 12:06 PM SHOT FIREMAN EGFR Routine 06/29/2024 5:52 AM SHOT FIREMAN LIPID PANEL Routine 06/29/2024 5:52 AM SHOT FIREMAN BASIC METABOLIC PANEL Routine 06/29/2024 5:52 AM SHOT FIREMAN XR CHEST PA LATERAL 2 VIEWS ED 06/18 3:46 AM SHOT FIREMAN D-DIMER, QUANTITATIVE STAT 06/29/2024 3:36 AM SHOT FIREMAN EGFR STAT 06/29/2024 3:36 AM SHOT FIREMAN DIFFERENTIAL AUTO STAT 06/29/2024 3:36 AM SHOT FIREMAN TROPONIN T HIGH-SENSITIVITY SERIES (BASELINE, 2HR, 4HR, 6HR) STAT 06/29/2024 3:36 AM SHOT FIREMAN CBC WITH AUTO DIFFERENTIAL STAT 06/29 3:36 AM SHOT FIREMAN COMPREHENSIVE METABOLIC PANEL STAT 3:36 AM SHOT FIREMAN ECG 12-LEAD Routine 06/29/2024 3:04 AM SHOT FIREMAN EGFR Routine 06/24/2024 9:17 AM SHOT FIREMAN Pre-operative cardiovascular examination DIFFERENTIAL AUTO Routine 06/24/2024 9:17 AM SHOT FIREMAN Pre-operative cardiovascular examination BASIC METABOLIC PANEL Routine 06/24/2024 9:17 AM SHOT FIREMAN Pre-operative cardiovascular examination CBC WITH AUTO DIFFERENTIAL Routine 06/24 9:17 AM SHOT FIREMAN Pre-operative cardiovascular examination NM MPI SPECT (REST AND/OR STRESS) MULTIPLE STUDIES Schedule Routine, Read Routine (OP Routine) 06/19/2024 10:45 AM SHOT FIREMAN Precordial chest pain Hyperlipidemia, unspecified hyperlipidemia type Coronary artery disease, unspecified vessel or lesion type, unspecified whether angina present, unspecified whether jackson or transplanted heart TRANSTHORACIC ECHO (TTE) COMPLETE W DOPPLER/CF WO CONTRAST Routine 06/19/2024 8:17 AM SHOT FIREMAN Precordial chest pain Hyperlipidemia, unspecified hyperlipidemia type Coronary artery disease, unspecified vessel or lesion type, unspecified whether angina present, unspecified whether jackson or transplanted heart from Last 3 Months Results * PET Stress Test (07/27/2024 3:52 PM SHOT FIREMAN) Anatomical Region Laterality Modality N/A Positron Emissio n Tomography (PET) Impressions 07/27/2024 4:40 PM SHOT FIREMAN Electrocardiographically normal pharmacologic stress test I personally supervised and was present throughout the stress test. Refer to the separate report of the PET myocardial perfusion imaging results. Narrative 07/27/2024 4:40 PM SHOT FIREMAN EXAMINATION: PHARMACOLOGIC STRESS TEST FOR CARDIAC PET [...] ? 6min ? 83 ?101/66 us Prasad Lopez MD IMG PET PROCEDURES Final Resul t * PET/CT Myocardial Perfusion Imaging (Multiple) (07/27/2024 3:52 PM SHOT FIREMAN) Anatomical Region Laterality Modality Body N/A Positron Emissio n Tomography (PET) 07/27/2024 4:58 PM SHOT FIREMAN Impressions 07/28/2024 9:27 AM SHOT FIREMAN 1. ??Rest and pharmacologic-stress myocardial perfusion images [...] Kane Medina M.D. Narrative 07/28/2024 9:27 AM SHOT FIREMAN EXAMINATION: MYOCARDIAL PET/CT PERFUSION IMAGING (STRESS/REST) DATE OF STUDY: 07/27/2024 SCANNER: [facility] (NV1). ?? RADIOPHARMACEUTICAL: 8.21 mCi N-13 ammonia [...] and myocardial flow reserve (MFR), calculated using [employer] software: ? MBF-stress ?MBF-rest ?MFR LAD: ? [...] IMAGING (STRESS/REST) DATE OF STUDY: 07/27/2024 SCANNER: [facility] (NV1). RADIOPHARMACEUTICAL: 8.21 mCi N-13 ammonia i.v., [...] flow reserve (MFR), calculated using 4DM software: MBF-stress MBF-rest MFR LAD: 2.54 1.18 [...] it. Electronically signed by: Kane Medina M.D. Prasad Lopez MD IMG PET PROCEDURES Final Resul t * Surgical pathology (07/20/2024 1:34 PM SHOT FIREMAN) Tissue (Gastric/Stomach biopsy) 07/20/2024 9:56 AM SHOT FIREMAN Tissue (Duodenum, Biopsy) 07/20/2024 9:56 AM SHOT FIREMAN Tissue (Esophageal biopsy) 07/20/2024 9:58 AM SHOT FIREMAN Tissue (Esophageal biopsy) 07/20/2024 9:58 AM SHOT FIREMAN Narrative PATHOLOGY [facility] - 07/21/2024 1:48 PM SHOT FIREMAN EPIC results best viewed via link to PDF [facility] Department of Pathology [address] [place] [address] Note to Patients: This report may contain [...] Final Report Patient Name: ??YAZMIN ETIENNE Address: ??[address] [place] [address], ??[place], [place] [address] Gender: ??F : ??1980 (Age: 43) Service: ??Gastro Location: ??[facility] Hospital #: ??[id number] Patient Type: ??[facility] Accession # ?[id number] Taken: ??07/20/2024 Received: ??07/20/2024 [...] pale mucosa, 1-2 mm. All in D. Unruly Ji/Lin Carty M.D. REPORT IMAGES AND SCANNED DOCUMENTS, IF INCLUDED, ONLY VIEWABLE IN PDF VERSION OF REPORT The performance characteristics of some immunohistochemical stains, fluorescence in-situ hybridization tests and immunophenotyping by flow cytometry cited in this report (if any) were determined by the Surgical Pathology Department at [facility] as part of an ongoing manufacturing quality manager program and in compliance with federally mandated [...] characteristics determined by the Surgical Pathology Department [facility]. ??It has not been cleared or approved by the U. S. Food and Drug Administration. Note for decalcified specimens: This assay has not been validated on decalcified tissues. Results should be interpreted with caution given the possibility of false negativity on decalcified specimens Janet Em MD LAB PATHOLOGY ORDERABLES Final R esult Performing Organization Address City/State/[facility] Co de Phone Number PATHOLOGY [address] [address] * EGD (07/20/2024 8:01 AM SHOT FIREMAN) Anatomical Region Laterality Modality Other Narrative Procedure Note Janet Em MD - 07/20/2024 8:01 AM CST [facility] Patient Name: Yazmin Etienne Procedure Date: 07/20/2024 8:01 AM Date of : 1980 Admit Type: Outpatient Age: 43 Gender: Female Attending MD: Janet Em M.D. Room: [facility] ENDOSCOPY ROOM 2 Note Status: Finalized Patient [...] procedure were verified by the physician, the wild animal caretaker and the histotechnician in the endoscopy suite. Mental Status Examination: [...] passed under direct vision. The Endoscope [id number] was introduced through the mouth, and advanced [...] 8:01 AM Procedure Code(s): --- Professional --- 45927, Esophagogastroduodenoscopy, flexible, transoral; withinsertion of guide wire followed by passage of dilator(s) through esophagusover guide wire --- Technical --- 31011, Esophagogastroduodenoscopy, flexible, transoral; withinsertion of guide wire [...] and duodenum R12, Heartburn CPT copyright 2020 [employer]. All rights reserved. The codes documented in this report are preliminary and upon linux kernel engineer reviewmay be revised to meet current compliance requirements. Recognized by the [place] [employer] for promoting quality in endoscopy us Janet Em MD ENDOSCOPY PROCEDURES Final Resul t * PSG (07/15/2024) Impressions Jody Spencer MD - 07/15/2024 Baseline Polysomnogram Followed By MSLT History: Yazmin Etienne is a 43 y.o. female who presents for baseline polysomnogram. Reason for sleep study: ??Excessive daytime sleeping Everton sleepiness score: 17 Weight: 162 lbs BMI: 27.95 ? Procedure: This overnight diagnostic baseline polysomnogram was performed with the echo technologist in attendance. Patient is studied with [...] scored according to the criteria from The [place] [employer] (AASM) Manual for [...] to follow this study. Jody Spencer MD [facility] Sleep Medicine Narrative Jody [...] Reason for sleep study: ??Excessive daytime sleeping Everton sleepiness score: 17 Weight: 162 lbs BMI: [...] Clinical correlation is recommended. Jody Spencer MD [facility] Sleep Medicine Narrative Jody Spencer MD - 07/15/2024 MSLT for review us Jody Spencer MD SLEEP CENTER ORDERABLES Edited R esult - Final * LEFT HEART CATHETERIZATION WITH CORONARY ANGIOGRAPHY AND WITH AND WITHOUT LEFT VENTRICULOGRAM (06/30/2024 12:12 PM SHOT FIREMAN) Anatomical Region Laterality Modality X-Ray Angiograph y 06/30/2024 Narrative 07/04/2024 8:30 AM SHOT FIREMAN [employer] Job ID: [id number] [employer] Document ID: [id number] Dictated date/time: [id number] INDICATION Yazmin Etienne is a 43-year-old female with typical/atypical exertional/nonexertional chest discomfort. ??Initial EKG showed slight ST depression inferolaterally. ??This is similar to an EKG from April 2023. ?? Cardiac enzymes were normal. ??She did have a recently slightly abnormal nuclear stress test at [facility] about 2 weeks ago. ??It showed mild septal wall ischemia. ??Cardiac catheterization was scheduled at [facility] for next week. ??Since she is here now, she is agreeable to a cardiac catheterization. ??She understands risks include the following but not limited to following: ??, CVA, myocardial infarction, infection, vascular problems, dye reaction, dysrhythmias, pain, bleeding, renal failure, need for urgent CABG or stent placement. ??Radiation exposure also discussed with the patient. PROCEDURE The patient was brought down to cardiac center medical and lab director where she was prepped and draped in usual sterile fashion. ??Time-out was done prior to the procedure. ??ARIA Bateman, was the sedating nurse for total sedation time of 34 minutes. ??The patient received in small increments 2 mg IV Versed, 50 mg IV Benadryl and 100 mcg of fentanyl. ??When well sedated, 1% lidocaine was given to the right groin. ??A 5-Beninese sheath was then placed over a J tipped guidewire without difficulties. ??Femoral angiogram showed a good location for an Angio-Seal device at the end of procedure. ??Next, a 5-Beninese JR4 catheter was then placed into the left ventricle for hemodynamics and pullback. ??Same catheter was then used for right coronary injection done in multiple views. ??Left main was injected in multiple views using a 5-Beninese JL4 catheter. ??Finally, a 5-Beninese angled pigtail catheter was used for hemodynamics. ??It was also used for left ventriculography which was done in the 30-degree CASTRO position. ??LV pullback was then performed. ??This was then followed by Angio-Seal to the right groin. ??Manual pressure was applied for 5 minutes. 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 Job ID/Internal Job ID: ??[id number] us Guerrero Barnes MD CV CARDIAC CATH PROCEDURES Fi nal Result * eGFR (06/30/2024 3:24 AM SHOT FIREMAN) Pathologist [facility] eGFR 89 >=60 mL/min/1. 73 m2 Comment: [...] last reviewed 2021. Blood 06/30/2024 3:24 AM SHOT FIREMAN 06/30/2024 4:54 AM SHOT FIREMAN us Peggy Munoz MD LAB BLOOD ORDERABLES Final Resul t [facility] ([place] 1 [facility] Department of Laboratories [place], [place] [id number] * Differential, auto (06/30/2024 3:24 AM SHOT FIREMAN) Neutrophil abs 3.3 1.5 - 6.5 K/cumm Imm gran abs 0.0 0.0 - 0.1 K/cumm [facility] ([place]) Lymphocyte abs 1.6 0.8 - 3.3 K/cumm [facility] ([place]) [...] revised on 2017. Blood 06/30/2024 3:24 AM SHOT FIREMAN 06/30/2024 4:54 AM SHOT FIREMAN us Peggy Munoz MD LAB BLOOD ORDERABLES Final Resul t [facility] ([place]) 1 [facility] Department [place] [address] * CBC with auto differential (06/30/2024 3:24 AM SHOT FIREMAN) WBC 5.7 3.8 - 9.9 K/cumm Hgb 14.2 11.9 - 15.5 g/dL [facility] ([place]) Hct 42.1 35.6 - 45.5 % [facility] ([place]) Plt 244 150 - 400 K/cumm [facility] ([place]) MPV 10.4 9.1 - 12.3 fL [facility] ([place]) RBC 4.61 3.90 - 5.20 M/cumm [facility] ([place]) MCV 91.3 81.3 - 96.4 fL [facility] ([place]) MCH 30.8 27.1 - 33.3 pg [facility] ([place]) MCHC 33.7 32.3 - 35.7 g/dL [facility] ([place]) RDW CV 13.2 11.1 - 14.9 % [facility] ([place]) RDW SD 44.6 35.7 - 48.1 fL [facility] ([place]) NRBC abs 0.00 0.00 - 0.01 K/cumm [facility] ([place]) Blood 06/30/2024 3:24 AM SHOT FIREMAN 06/30/2024 4:54 AM SHOT FIREMAN us Peggy Munoz MD LAB BLOOD ORDERABLES Final Resul t Performing Organization Address City/[facility]/ZIP Co de Phone Number [facility] ([place]) 1 [facility] [place] [address] * aPTT (06/30/2024 3:24 AM SHOT FIREMAN) aPTT 33 28 - 38 sec [facility]) Comment: Interpretive Data Heparin therapeutic range: 66.0 - 100.0 seconds. Range based on correlation with therapeutic heparin activity range of 0.3 - 0.7 Units/mL. Current interpretive data was last revised on 2023. Blood 06/30/2024 3:24 AM SHOT FIREMAN 06/30/2024 4:53 AM SHOT FIREMAN us Mirta Geronimo MD LAB BLOOD ORDERABLES Final Re sult [facility] ([place]) 1 [facility] [place] [address] * Protime-INR (06/30/2024 3:24 AM SHOT FIREMAN) PT 11.6 9.7 - 13.0 sec [facility] ([place]) INR 1.07 0.90 - 1.20 [facility] ([place]) Comment: Interpretive data Oral anticoagulant therapeutic ranges: Venous thromboembolism prophylaxis or treatment: 2.0-3.0 CARDIOLOGY Standard range: 2.0-3.0 High-intensity range: 2.5-3.5 Refer to indication-specific guidelines for appropriate target ranges for prosthetic heart valve replacement. Current interpretive data was last revised on 2019. Blood 06/30/2024 3:24 AM SHOT FIREMAN 06/30/2024 4:53 AM SHOT FIREMAN us Peggy Munoz MD LAB BLOOD ORDERABLES Final Resul t [facility] ([place]) 1 [facility] Department [place] [address] * Basic metabolic panel (06/30/2024 3:24 AM SHOT FIREMAN) Sodium 137 135 - 145 mmol/L Potassium, pl 3.8 3.3 - 4.9 mmol/L [facility] ([place]) Chloride 103 97 - 110 mmol/L [facility] ([place]) CO2 24 22 - 32 mmol/L [facility] ([place]) Anion gap 11 2 - 15 mmol/L [facility] ([place]) BUN 11 6 - 25 mg/dL [facility] ([place]) Creatinine 0.83 0.60 - 1.10 mg/dL [facility] ([place]) Glucose 89 70 - 199 mg/dL [facility] ([place]) Comment: Interpretive Data Fasting glucose [...] 2022. Calcium 9.2 8.5 - 10.3 mg/dL [facility] ([place]) Blood 06/30/2024 3:24 AM SHOT FIREMAN 06/30/2024 4:54 AM SHOT FIREMAN us Peggy Munoz MD LAB BLOOD ORDERABLES Final Resul t [facility] ([place]) 1 [facility] Department [place] [address] * ECG 12 lead (06/30/2024 3:10 AM SHOT FIREMAN) 06/30/2024 3:10 AM SHOT FIREMAN Narrative [facility] - 06/30/2024 8:36 AM SHOT FIREMAN Vent Rate: 63 bpm RR Interval: 952 msec [place] Interval: 182 msec QRS Duration: 81 msec QT Interval: 438 msec QTC Interval: 444 msec P-R-T [place]: 61 - 43 - 35 degrees IMPRESSION: SINUS RHYTHM NONSPECIFIC T-WAVE ABNORMALITY BORDERLINE ECG Compared to prior EKG, heart rate has decreased Electronically Signed By: Carmine Hernandez MD us Guerrero Barnes MD ECG ORDERABLES Final Result Performing Organization Address [facility] Co de Phone Number [facility] * COVID-19 Coronavirus RNA Nasopharyngeal (06/29/2024 12:06 PM SHOT FIREMAN) COVID-19 RNA Negative Negative Nasopharyngeal 06/29/2024 12 :06 PM SHOT FIREMAN 06/29/2024 12:10 PM SHOT FIREMAN Narrative [facility] ([place]) - 06/29/2024 12:43 PM SHOT FIREMAN Is the patient experiencing any symptoms consistent with COVID (eg. Fever, cough, shortness of breath)?->No What is the reason for testing?->Screening for semi-private room placement ??Interpretive data: Testing performed by [facility]. ??This test is performed using the [employer] Xpert Xpress CoV-2 plus assay. This is a real-time RT-PCR test intended for the qualitative detection of nucleic acid from the SARS-CoV-2. This assay has been cleared by the [place] Food and Drug administration. The performance characteristics have been verified by [facility]. ??Results must be considered in the clinical context, and a negative result does not rule out infection. Interpretive data last revised 2024. us Henrietta Alfaro MD LAB MICROBIOLOGY - GENERA L ORDERABLES Final Result [facility] ([place]) 1 [facility] Department [place] [address] * eGFR (06/29/2024 5:52 AM SHOT FIREMAN) eGFR >90 >=60 mL/min/1. 73 m2 Comment: [...] last reviewed 2021. Blood 06/29/2024 5:52 AM SHOT FIREMAN 06/29/2024 5:55 AM SHOT FIREMAN us Gretchen Lal MD LAB BLOOD ORDERABLES Fin al Result [facility] ([place]) 1 [facility] Department [place] [address] * (ABNORMAL) Lipid panel (06/29/2024 5:52 AM SHOT FIREMAN) Cholesterol 199 30 - 199 mg/dL Comment: [...] 2018. Triglycerides 102 <=149 mg/dL [facility] ([place]) Comment: Interpretive Data Ages < or = [...] mg/dL ??High: ?>160 mg/dL Calculated using the Tony LDL-C estimating equation. This equation was implemented [...] revised on 2024. Non-HDL Cholesterol 167 mg/dL [facility] ([place]) Comment: Interpretive Data Ages < or [...] revised on 2018. Chol/HDL ratio 6 [facility] ([place]) Blood 06/29/2024 5:52 AM SHOT FIREMAN 06/29/2024 5:55 AM SHOT FIREMAN Gretchen Lal MD LAB BLOOD ORDERABLES Fin al Result [facility] ([place]) 1 [facility] Department of Laboratories [place], [place] [id number] * (ABNORMAL) Basic metabolic panel (06/29/2024 5:52 AM SHOT FIREMAN) Sodium 135 135 - 145 mmol/L Potassium, pl 4.5 3.3 - 4.9 mmol/L [facility] ([place]) Comment:Moderately Hemolyzed Specimen. Results may be affected. Chloride 104 97 - 110 mmol/L [facility] ([place]) CO2 20(L) 22 - 32 mmol/L [facility] ([place]) Anion gap 11 2 - 15 mmol/L [facility] ([place]) BUN 7 6 - 25 mg/dL [facility] ([place]) Creatinine 0.69 0.60 - 1.10 mg/dL [facility] ([place]) Glucose 93 70 - 199 mg/dL [facility] ([place]) Comment: Interpretive Data Fasting glucose [...] 2022. Calcium 9.0 8.5 - 10.3 mg/dL [facility] ([place]) Blood 06/29/2024 5:52 AM SHOT FIREMAN 06/29/2024 5:55 AM SHOT FIREMAN us Mirta Geronimo MD LAB BLOOD ORDERABLES Final Re sult [facility] ([place]) 1 [facility] Department [place] [address] * XR Chest PA Lateral 2 Views (06/29/2024 3:46 AM SHOT FIREMAN) Anatomical Region Laterality Modality Body, Chest N/A Computed Radiogr aphy 06/29/2024 4:14 AM SHOT FIREMAN Narrative 06/29/2024 4:17 AM SHOT FIREMAN EXAM DESCRIPTION: ?? XR CHEST PA LATERAL [...] Electronically signed by ??Sammi José M.D. SN: D: ??06/29/2024 4:17 AM T: ??06/29/2024 4:17 AM Report ID: [id number] Reading Location: ??[id number] Procedure Note Sammi José MD - 06/29/2024 [...] Electronically signed by Sammi José M.D. SN: Report ID: [id number] Reading Location: [id number] Peggy Munoz MD IMG XR PROCEDURES Final Result * Troponin T high-sensitivity series (baseline, 2hr, 4hr, 6hr) (06/29/2024 3:36 AM SHOT FIREMAN) Trop T hs <6 <=14 ng/L Comment: Interpretive Data For further hscTnT resources including the diagnostic algorithm and an aid in interpretation, copy and paste this link: https://nrl.testcatalog.org/show/hsTrop Current Interpretive Data last revised 2020. Blood 06/29/2024 3:36 AM SHOT FIREMAN 06/29/2024 3:38 AM SHOT FIREMAN Peggy Munoz MD LAB BLOOD ORDERABLES Final Resul t [facility] ([place]) 1 [facility] Department [place] [address] * eGFR (06/29/2024 3:36 AM SHOT FIREMAN) Pathologist [facility] eGFR >90 >=60 mL/min/1. 73 m2 Comment: [...] last reviewed 2021. Blood 06/29/2024 3:36 AM SHOT FIREMAN 06/29/2024 3:38 AM SHOT FIREMAN us Peggy Munoz MD LAB BLOOD ORDERABLES Final Resul t [facility] ([place]) 1 [facility] Department [place] [address] * Differential, auto (06/29/2024 3:36 AM SHOT FIREMAN) Pathologist [facility] Neutrophil abs 4.5 1.5 - 6.5 K/cumm Imm gran abs 0.0 0.0 - 0.1 K/cumm [facility] ([place]) Lymphocyte abs 1.4 0.8 - 3.3 K/cumm [facility] ([place]) Monocyte abs 0.7 0.2 - 0.8 K/cumm [facility] ([place]) [...] revised on 2017. Blood 06/29/2024 3:36 AM SHOT FIREMAN 06/29/2024 3:38 AM SHOT FIREMAN us Peggy Munoz MD LAB BLOOD ORDERABLES Final Resul t Performing Organization Address City/[facility]/ZIP Co de Phone Number [facility] ([place]) 1 [facility] [place] [address] * CBC with auto differential (06/29/2024 3:36 AM SHOT FIREMAN) WBC 6.9 3.8 - 9.9 K/cumm Hgb [...] [facility] ([place]) Blood 06/29/2024 3:36 AM SHOT FIREMAN 06/29/2024 3:38 AM SHOT FIREMAN us Peggy Munoz MD LAB BLOOD ORDERABLES Final Resul t [facility] ([place]) 1 [facility] [place] [address] * D-dimer, quantitative (06/29/2024 3:36 AM SHOT FIREMAN) D-Dimer 423 <=499 ng/mL FEU [facility] ([place]) Comment: Interpretive data FDA approved the [...] 68, VTE cut-off 680 ng/ml FEU. References; Schouttom HT et al. Brit Med J. 2013;346:f2492. Casimiro et al. Annals Int Med. 2015;163:701-11. Current interpretive data was last revised on 2019. Blood 06/29/2024 3:36 AM SHOT FIREMAN 06/29/2024 5:45 AM SHOT FIREMAN us Peggy Munoz MD LAB BLOOD ORDERABLES Final Resul t [facility] ([place]) 1 [facility] Department [place] [address] * (ABNORMAL) Comprehensive metabolic panel (06/29/2024 3:36 AM SHOT FIREMAN) Sodium 138 135 - 145 mmol/L Potassium, pl 3.9 3.3 - 4.9 mmol/L [facility] ([place]) Chloride 108 97 - 110 mmol/L [facility] ([place]) CO2 20(L) 22 - 32 mmol/L [facility]) Anion gap 10 2 - 15 mmol/L [facility] ([place]) BUN 8 6 - 25 mg/dL [facility] ([place]) Creatinine 0.76 0.60 - 1.10 mg/dL [facility] ([place]) Glucose 87 70 - 199 mg/dL [facility] ([place] Comment: Interpretive Data Fasting glucose [...] Slightly Hemolyzed Specimen Blood 06/29/2024 3:36 AM SHOT FIREMAN 06/29/2024 3:38 AM SHOT FIREMAN us Peggy Munoz MD LAB BLOOD ORDERABLES Final Resul t Performing Organization Address City/[facility]/ZIP Co de Phone Number [facility] ([place]) 1 [facility] [place] [address] * ECG 12 lead (06/29/2024 3:04 AM SHOT FIREMAN) 06/29/2024 3:04 AM SHOT FIREMAN Narrative [facility] - 06/29/2024 8:41 AM SHOT FIREMAN Vent Rate: 93 bpm RR Interval: 643 msec AK Interval: 153 msec QRS Duration: 86 msec QT Interval: 325 msec QTC Interval: 376 msec P-R-T [place]: 77 - 69 - 4 degrees IMPRESSION: SINUS RHYTHM NONSPECIFIC ST \T\ T-WAVE ABNORMALITY No significant change from prior EKG Electronically Signed By: Dr Guerrero Barnes us Peggy Munoz MD ECG ORDERABLES Final Result [facility] * eGFR (06/24/2024 9:17 AM SHOT FIREMAN) eGFR >90 >=60 mL/min/1. 73 m2 Comment: [...] Inclusion of Race in Diagnosing Kidney Disease, DEANNASIsabela 2020). The CKD-EPI equation should not be used for patients with unstable renal function and has not been validated in children and those over 70. Current interpretive data was last reviewed 2021. Blood 06/24/2024 9:17 AM SHOT FIREMAN 06/24/2024 9:37 AM SHOT FIREMAN us Prasad Lopez MD LAB BLOOD ORDERABLES Final Res ult Performing Organization Address City/State/[facility] Co de Phone Number [facility] ([place]) 1 [facility] Department [place] [address] * Differential, auto (06/24/2024 9:17 AM SHOT FIREMAN) Neutrophil abs 3.4 1.5 - 6.5 K/cumm Imm gran abs 0.0 0.0 - 0.1 K/cumm [facility] ([place]) Lymphocyte abs 2.4 0.8 - 3.3 K/cumm [facility] ([place]) Monocyte abs 0.6 0.2 - 0.8 K/cumm [facility] ([place]) Eosinophil abs 0.2 0.0 - 0.5 K/cumm [...] revised on 2017. Blood 06/24/2024 9:17 AM SHOT FIREMAN 06/24/2024 9:37 AM SHOT FIREMAN us Prasad Lopez MD LAB BLOOD ORDERABLES Final Res ult [facility] ([place]) 1 [facility] Department [place] [address] * CBC with auto differential (06/24/2024 9:17 AM SHOT FIREMAN) WBC 6.6 3.8 - 9.9 K/cumm Hgb [...] [facility] ([place]) Blood 06/24/2024 9:17 AM SHOT FIREMAN 06/24/2024 9:37 AM SHOT FIREMAN us Prasad Lopez MD LAB BLOOD ORDERABLES Final Res ult [facility] ([place]) 1 [facility] Department [place] [address] * Basic metabolic panel (06/24/2024 9:17 AM SHOT FIREMAN) Sodium 140 135 - 145 mmol/L Potassium, pl 4.3 3.3 - 4.9 mmol/L [facility] ([place]) Chloride 105 97 - 110 mmol/L [facility] ([place]) CO2 24 22 - 32 mmol/L [facility] ([place]) Anion gap 11 2 - 15 mmol/L [facility] ([place]) BUN 6 6 - 25 mg/dL [facility] ([place]) Creatinine 0.80 0.60 - 1.10 mg/dL [facility] ([place]) Glucose 91 70 - 199 mg/dL [facility] ([place]) Comment: Interpretive Data Fasting glucose >/= [...] 2022. Calcium 9.1 8.5 - 10.3 mg/dL [facility] ([place]) Blood 06/24/2024 9:17 AM SHOT FIREMAN 06/24/2024 9:37 AM SHOT FIREMAN us Prasad Lopez MD LAB BLOOD ORDERABLES Final Res ult [facility] ([place]) 1 [facility] Department [place] [address] * NM MPI SPECT (Rest and/or Stress) Multiple Studies (06/19/2024 10:45 AM SHOT FIREMAN) Anatomical Region Laterality Modality Body N/A Electrocardiogra phy Narrative 06/21/2024 9:20 PM SHOT FIREMAN Table formatting from the original result was not included. [facility] [address] [address] Nuclear MPI Pharmaceutical Study Patient Name: Yazmin [...] NP. Images interpreted by Prasad Lopez MD. Prasad Lopez MD IMG NM PROCEDURES Final Result * TRANSTHORACIC ECHO (TTE) COMPLETE W DOPPLER/CF WO CONTRAST (06/19/2024 8:17 AM SHOT FIREMAN) LV EF 62 % CARDIOREPORT Anatomical Region Laterality Modality Ultrasound 06/19/2024 7:30 AM SHOT FIREMAN Narrative 06/19/2024 6:17 PM SHOT FIREMAN Patient name: Yazmin Etienne Date of test: 06/19/2024 Type of test: TTE w/Doppler Hospital #: 0 Date of : 1980 (F) Caramel Cutter Helper: Trevor Betts RDCS Referring Physician: PRASAD LOPEZ MD Contrast Agent: Contrast Administered by: Supervised/Interpreted by: Prasad Lopez MD Diagnosis: Location: [facility] Reason for test: CP, CAD MV Structure: [...] 2=Hypo 3=Akinetic 4=Dyskin./Aneurysm 0=Not visualized) Parasternal Long [place]:MAS=1 BAS=1 MIL=1 WILLIAM=1 Parasternal Short [place]:MAS=1 MIS=1 IA=1 MIL=1 MAL=1 MA=1 Apical 4 Chambers:=1 MIS=1 BIS=1 BAL=1 MAL=1 AL=1 AC=1 Apical 2 Chambers:AI=1 IA=1 BI=1 BA=1 MA=1 AA=1 AC=1 LV Global [...] MD By signing this report, the attending stage rigger certifies that he or she has personally supervised and interpreted the echocardiogram and has reviewed and or edited and agrees with the written comments contained within the report. Procedure Note Prasad Lopez MD - 06/19/2024 Patient name: Yazmin Etienne Date of test: 06/19/2024 Type of test: TTE w/Doppler [facility] Date of : 1980 (F) Caramel Cutter Helper: Trevor Betts RDCS Referring Physician: PRASAD LOPEZ MD Contrast Agent: Contrast Administered by: Supervised/Interpreted by: Prasad Lopez MD Diagnosis: Location: [facility] Reason for test: CP, CAD MV Structure: [...] 2=Hypo 3=Akinetic 4=Dyskin./Aneurysm 0=Not visualized) Parasternal Long [place]:MAS=1 BAS=1 MIL=1 WILLIAM=1 Parasternal Short [place]:MAS=1 MIS=1 IA=1 MIL=1 MAL=1 MA=1 Apical 4 Chambers:=1 MIS=1 BIS=1 BAL=1 MAL=1 AL=1 AC=1 Apical 2 Chambers:AI=1 IA=1 BI=1 BA=1 MA=1 AA=1 AC=1 LV Global [...] MD By signing this report, the attending stage rigger certifies that he or she has personally supervised and interpreted the echocardiogram and has reviewed and or edited and agrees with the written comments contained within the report. Prasad Lopez MD CV ECHO PROCEDURES Final Resul t from Last 3 Months Insurance [facility] Advance Directives For more information, please contact: [phone] * Full Code (Latest Code Status on [...] 7:04 AM 11/05/2023 7:04 AM Care Teams Marketing Programs Specialist Relationship Specialty Start Date End Date Alicia Cueva PA [address] [place] [id number] PCP - General Physician Transportation Solutions Manager 05/13/22
[2024-08-11 14:04] VITALS: BP 108/67; PULSE 83; RESP 16; TEMP 36.4; O2SAT 98
[2024-08-11 14:31] VITALS: RESP 19
[2024-08-11 14:33] VITALS: BP 112/78; PULSE 83; RESP 21; O2SAT 99
--- OUTSIDE RECORDS SUMMARY | 2024-08-11 15:52 | XMS_ITS | Clinical Summary ---
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 (HCC) Inhale 1 puff [...] 02/16/2024 Assessment & Plan (05/29/2024 9:55 AM SENIOR DATA MODELER): Last level was 149 in 2022 PFT with decrease in FEV1 Level 139 January 2024 Assessment & Plan (02/16/2024 3:06 PM CDT): Last level was 149 in 2022 PFT with decrease in FEV1 I will recheck her levels today Asthma-COPD overlap syndrome 02/16/2024 Assessment & Plan (05/29/2024 9:56 AM SENIOR DATA MODELER): Continue Dulera 200 twice daily She is [...] 12/28/2023 Assessment & Plan (05/29/2024 9:59 AM SENIOR DATA MODELER): - Smoking cessation counseling and techniques reviewed at length - Avoid triggers and use distraction techniques - Participate in support groups - Information given regarding [place] Tobacco Quit line: 9-525-PJLH-YES for free services - 4 minutes spent [...] in support groups - Information given regarding [place] Tobacco Quit line: 7-754-MWWS-YES for free services - 4 minutes spent discussing cessation Assessment & Plan (12/28/2023 9:25 AM CDT): - Smoking cessation counseling and techniques reviewed at length - Avoid triggers and use distraction techniques - Information given regarding [place] Tobacco Quit line: 1-588-HAPF-YES for free services - 4 minutes spent discussing cessation Vapes nicotine containing substance 12/28/2023 Assessment & Plan (12/28/2023 9:25 AM CDT): She admits this is significantly increased in the last 3 months in particular with stressors at home and trying to cut down on cigarettes We have discussed complete cessation Laryngopharyngeal reflux (LPR) 12/28/2023 Assessment & Plan (05/29/2024 10:01 AM SENIOR DATA MODELER): Continue pantoprazole 40 mg twice daily Elevate [...] 08/13/2023 Assessment & Plan (05/29/2024 9:58 AM SENIOR DATA MODELER): PFT does not show obstruction- rather air [...] 2023 Assessment & Plan (08/13/2023 11:32 AM SENIOR DATA MODELER): She has had little benefit from inhaled therapy, leading me to believe that her dyspnea is not primary pulmonary in origin. PFT shows air trapping but not obstruction. She is on triple therapy and has tried multiple inhalers. I have encouraged smoking cessation A1AT MS Level 149 with no obstruction on PFT Multiple nodules of lung 08/13/2023 Assessment & Plan (08/13/2023 10:59 AM SENIOR DATA MODELER): Resolved Dysphagia 06/24/2023 Assessment & Plan (12/27/2023 [...] GI Assessment & Plan (08/13/2023 11:07 AM SENIOR DATA MODELER): Her PFT shows no fixed obstriction, but [...] (02/04/2021): Added automatically from request for surgery [id number] Right elbow tendinitis 02/01/2021 Insomnia 09/06/2019 Resolved [...] 08/13/202312/17 Assessment & Plan (08/13/2023 10:59 AM SENIOR DATA MODELER): - Smoking cessation counseling and techniques reviewed at length - Literature reviewed - Avoid triggers and use distraction techniques - Participate in support groups - Information given regarding [place] Tobacco Quit line: 3-505-EVCU-YES for free services - 4 minutes spent discussing cessation I have also strongly encouraged her to quit vaping Encounters Date Type Department Care Team Description [address] [facility] Cardiology [address] [address] 8th [place] [address] [place] [address] Prasad Lopez MD 5 2:00 PM SENIOR DATA MODELER Office Visit [facility] Sleep Medicine at [address] [place] [address] Jdoy Spencer MD Hypersomnolence (Primary Dx); Snoring; Overweight; Insomnia, unspecified type [address] [facility] Cardiology [address] [facility] 8th [place] [address] [place] [address] Prasad Lopez MD Hypotension; Med Management (Amlodipine held) 5 1:13 PM SENIOR DATA MODELER - 5 11:59 PM SENIOR DATA MODELER Hospital Encounter [facility] ([facility]) [address] [place] [id number] Discharge Disposition: Discharge to home or self care 5 1:13 PM SENIOR DATA MODELER - 5 11:59 PM SENIOR DATA MODELER Hospital Encounter [facility] Radiology [place] [facility] ([facility]) [address] [place] [address] Discharge Disposition: Discharge to home or self care 5 1:13 PM SENIOR DATA MODELER - 5 11:59 PM SENIOR DATA MODELER Hospital Encounter [facility] ([facility]) [address] [place] [address] Other chest pain; 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; Precordial chest pain; Dyspnea on exertion Discharge Disposition: Discharge to home or self care 5 Telephone [facility] Gastroenterology at [address] [place] [phone] Hailey Moran Schedule EGD & Colonoscopy 5 Telephone [facility] [address] [place] [address] [address] [address] Annika Mackenzie MA 5 9:26 AM SENIOR DATA MODELER Anesthesia Event [address] [address] Jonah Stahl MD Zirkelbach, Cecilia A., CRNA 5 9:00 AM SENIOR DATA MODELER - 5 9:55 AM SENIOR DATA MODELER Surgery [address] [address] Janet Em MD ESOPHAGOGASTRODUODENOSCOPY ESOPHAGEAL GUIDE WIRE 5 7:59 AM SENIOR DATA MODELER - 5 10:46 AM SENIOR DATA MODELER Hospital Encounter [facility] [address] [place] [address] Janet Em MD Encounter for screening colonoscopy; Dysphagia, unspecified type; Odynophagia; Colitis; Globus sensation; Diarrhea of presumed infectious origin Discharge Disposition: Discharge to home or self care 4 10:00 AM SENIOR DATA MODELER Office Visit 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 Scheduling [address] [place] [address] Prasad Lopez MD 4 6:00 AM SENIOR DATA MODELER - 4 11:59 PM SENIOR DATA MODELER Hospital Encounter [facility] [address] [place] [address] Hypersomnolence Discharge Disposition: Discharge to home or self care 4 7:00 PM SENIOR DATA MODELER - 4 11:59 PM SENIOR DATA MODELER Hospital Encounter [facility] [address] [place] [address] SARAHY (obstructive sleep apnea ) Discharge Disposition: Discharge to home or self care 4 Telephone [facility] Gastroenterology at [place] [address] [facility] [facility] [address] [place] [address] Carmina Cartagena MA [address] [facility] Cardiology [address] [place] [address] 8th [place] [address] [place] [address] Prasad Lopez MD Appointment 4 11:00 AM SENIOR DATA MODELER - 4 12:05 PM SENIOR DATA MODELER Surgery [facility] Cardiac Catheterization [address] [place] [address] Guerrero Barnes MD LEFT HEART CATHETERIZATION WITH CORONARY ANGIOGRAPHY AND WITH OR WITHOUT LEFT VENTRICULOGRAM [id number] 4 3:56 AM SENIOR DATA MODELER - 4 3:48 PM SENIOR DATA MODELER Emergency [facility] Acute Medicine [address] [place] [address] Peggy Munoz MD Abegunde, Veronica O., MD Quaizar, Huzaifa, MD Abnormal stress test (Primary Dx); Other chest pain Discharge Disposition: Discharge to home or self care [address] [facility] Cardiology [address] [facility] [address] [place] [address] [place] [address] Prasad Lopez MD 4 9:00 AM SENIOR DATA MODELER Lab [address] [phone] Pre-operative cardiovascular examination 4 8:45 AM SENIOR DATA MODELER Office Visit [facility] [address] [place] [address] [place] [phone] Prasad Lopez MD Pre-operative cardiovascular examination (Primary Dx) 4 8:30 AM SENIOR DATA MODELER Ancillary Procedure [facility] [address] [place] [address] [address] [place] [address] Precordial chest pain; Hyperlipidemia, unspecified hyperlipidemia type; Coronary artery disease, unspecified vessel or lesion type, unspecified whether angina present, unspecified whether peoria or transplanted heart 4 7:30 AM SENIOR DATA MODELER Ancillary Procedure [address] [place] [phone] Precordial chest pain; Hyperlipidemia, unspecified hyperlipidemia type; Coronary artery disease, unspecified vessel or lesion type, unspecified whether angina present, unspecified whether peoria or transplanted heart 4 Telephone [facility] Gastroenterology at [address] [place] [phone] Yadira [place] LPN 4 Orders Only [facility] Gastroenterology at [address] [place] [phone] Janet Em MD 4 8:30 AM SENIOR DATA MODELER Office Visit [facility] Pulmonary at [address] [place] [phone] Cailin Bridges NP Asthma-COPD overlap syndrome (HCC) (Primary Dx); Centrilobular emphysema (HCC); Laryngopharyngeal reflux (LPR); Alpha 1-antitrypsin PiMS phenotype; Cigarette nicotine dependence without complication 4 Telephone [facility] Gastroenterology at [address] [place] [address] Carmina Cartagena MA 4 1:15 PM SENIOR DATA MODELER Office Visit [facility] Sleep Medicine at [address] [place] [address] Jody Spencer MD Hypersomnia (Primary [...] on file Legal Sex Female 3:36 PM SENIOR DATA MODELER Gender Identity Not on file Sexual Orientation Not on file 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 Not on file Not on file Not on file Obstetrics History Last Filed Vital Signs Vital Sign Reading Time Taken Comments Blood Pressure 104/66 08/07/2024 1:44 PM SENIOR DATA MODELER Pulse 78 08/07/2024 1:44 PM SENIOR DATA MODELER Temperature 36.9 ??C (98.5 ??F) 07/20/2024 10:[address] Respiratory Rate 18 07/20/2024 10:32 AM SENIOR DATA MODELER Oxygen Saturation 97% 08/07/2024 1:44 PM SENIOR DATA MODELER Inhaled Oxygen Concentration - - Weight 77.8 kg (171 lb 9.6 oz) 08/07/2024 1:44 P M SENIOR DATA MODELER Height 162.6 cm (5' 4.02 ) 08/07/2024 1:44 PM CS T Body Mass Index 29.44 08/07/2024 1:44 PM SENIOR DATA MODELER Plan of Treatment Upcoming Encounters Date Type Department Care Team (Latest Contact Info) Description 02/02/2025 11:00 AM CDT Hospital Encounter [address] [address] Janet Em MD [address] [place] [address] 02/02/2025 11:00 AM CDT - 02/02/2025 11:55 AM CDT Surgery [facility] [address] [place] [address] Janet Em MD [address] [place] [address] ESOPHAGOGASTRODUODENOSCOPY Scheduled Procedures Name Priority Associated Diagnoses [...] this topic Medical Devices Implanted Type Area Public Address System Installer Device Identifier Shelf Expiration Date Model / Serial / Lot [employer] Angio-Seal Vip 6fr Closere Device [id number] - [id number] Implanted:Qty: 1 on 06/30/2024 by Guerrero Barnes MD at [facility] [employer] 11/11/2024 [id number] / / [id number] Procedures Procedure Name Priority Date/Time Associated Diagnosis Comments PET STRESS TEST Schedule Routine, Read Routine (OP Routine) 07/27/2024 3:52 PM SENIOR DATA MODELER Other chest pain 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 Precordial chest pain Dyspnea on exertion PET/CT MYOCARDIAL PERFUSION IMAGING (MULTIPLE) Schedule Routine, Read Routine (OP Routine) 07/27/2024 3:52 PM SENIOR DATA MODELER Other chest pain 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 Precordial chest pain Dyspnea on exertion SURGICAL PATHOLOGY STAT 07/20/2024 1:34 PM SENIOR DATA MODELER Encounter for screening colonoscopy Dysphagia, unspecified type Odynophagia Colitis Globus sensation Diarrhea of presumed infectious origin ENDO ADD ON ESOPHAGOGASTRODUODENOSCOPY BIOPSY 07/20/2024 9:21 AM SENIOR DATA MODELER Encounter for screening colonoscopy Dysphagia, unspecified type Odynophagia Colitis Globus sensation Diarrhea of presumed infectious origin ESOPHAGOGASTRODUODENOSCOPY ESOPHAGEAL GUIDE WIRE 07/20/2024 9:21 AM SENIOR DATA MODELER Encounter for screening colonoscopy Dysphagia, unspecified type Odynophagia Colitis Globus sensation Diarrhea of presumed infectious origin EGD 07/20/2024 8:01 AM SENIOR DATA MODELER MULTIPLE SLEEP LATENCY TEST Routine 07/15/2024 Hypersomnolence PSG (SIMPLE) Routine 07/15/2024 SARAHY (obstructive sleep apnea) LEFT HEART CATHETERIZATION WITH CORONARY ANGIOGRAPHY AND WITH AND WITHOUT LEFT VENTRICULOGRAM Routine 06/30/2024 12:12 PM SENIOR DATA MODELER Abnormal stress test EGFR Routine 06/30/2024 3:24 AM SENIOR DATA MODELER DIFFERENTIAL AUTO Routine 06/30/2024 3:24 AM SENIOR DATA MODELER BASIC METABOLIC PANEL Routine 06/30/2024 3:24 AM SENIOR DATA MODELER CBC WITH AUTO DIFFERENTIAL Routine 06/30 3:24 AM SENIOR DATA MODELER APTT Routine 06/30/2024 3:24 AM SENIOR DATA MODELER PROTIME-INR Routine 06/30/2024 3:24 AM SENIOR DATA MODELER ECG 12-LEAD Routine 06/30/2024 3:10 AM SENIOR DATA MODELER COVID-19 CORONAVIRUS RNA Routine 024 12:06 PM SENIOR DATA MODELER EGFR Routine 06/29/2024 5:52 AM SENIOR DATA MODELER LIPID PANEL Routine 06/29/2024 5:52 AM SENIOR DATA MODELER BASIC METABOLIC PANEL Routine 06/29/2024 5:52 AM SENIOR DATA MODELER XR CHEST PA LATERAL 2 VIEWS ED 06/18 3:46 AM SENIOR DATA MODELER D-DIMER, QUANTITATIVE STAT 06/29/2024 3:36 AM SENIOR DATA MODELER EGFR STAT 06/29/2024 3:36 AM SENIOR DATA MODELER DIFFERENTIAL AUTO STAT 06/29/2024 3:36 AM SENIOR DATA MODELER TROPONIN T HIGH-SENSITIVITY SERIES (BASELINE, 2HR, 4HR, 6HR) STAT 06/29/2024 3:36 AM SENIOR DATA MODELER CBC WITH AUTO DIFFERENTIAL STAT 06/29 3:36 AM SENIOR DATA MODELER COMPREHENSIVE METABOLIC PANEL STAT 3:36 AM SENIOR DATA MODELER ECG 12-LEAD Routine 06/29/2024 3:04 AM SENIOR DATA MODELER EGFR Routine 06/24/2024 9:17 AM SENIOR DATA MODELER Pre-operative cardiovascular examination DIFFERENTIAL AUTO Routine 06/24/2024 9:17 AM SENIOR DATA MODELER Pre-operative cardiovascular examination BASIC METABOLIC PANEL Routine 06/24/2024 9:17 AM SENIOR DATA MODELER Pre-operative cardiovascular examination CBC WITH AUTO DIFFERENTIAL Routine 06/24 9:17 AM SENIOR DATA MODELER Pre-operative cardiovascular examination NM MPI SPECT (REST AND/OR STRESS) MULTIPLE STUDIES Schedule Routine, Read Routine (OP Routine) 06/19/2024 10:45 AM SENIOR DATA MODELER Precordial chest pain Hyperlipidemia, unspecified hyperlipidemia type Coronary artery disease, unspecified vessel or lesion type, unspecified whether angina present, unspecified whether peoria or transplanted heart TRANSTHORACIC ECHO (TTE) COMPLETE W DOPPLER/CF WO CONTRAST Routine 06/19/2024 8:17 AM SENIOR DATA MODELER Precordial chest pain Hyperlipidemia, unspecified hyperlipidemia type Coronary artery disease, unspecified vessel or lesion type, unspecified whether angina present, unspecified whether peoria or transplanted heart from Last 3 Months Results * PET Stress Test (07/27/2024 3:52 PM SENIOR DATA MODELER) Anatomical Region Laterality Modality N/A Positron Emissio n Tomography (PET) Impressions 07/27/2024 4:40 PM SENIOR DATA MODELER Electrocardiographically normal pharmacologic stress test I personally supervised and was present throughout the stress test. Refer to the separate report of the PET myocardial perfusion imaging results. Narrative 07/27/2024 4:40 PM SENIOR DATA MODELER EXAMINATION: PHARMACOLOGIC STRESS TEST FOR CARDIAC PET [...] Myocardial Perfusion Imaging (Multiple) (07/27/2024 3:52 PM SENIOR DATA MODELER) Anatomical Region Laterality Modality Body N/A Positron Emissio n Tomography (PET) 07/27/2024 4:58 PM SENIOR DATA MODELER Impressions 07/28/2024 9:27 AM SENIOR DATA MODELER 1. ??Rest and pharmacologic-stress myocardial perfusion images [...] Kane Medina M.D. Narrative 07/28/2024 9:27 AM SENIOR DATA MODELER EXAMINATION: MYOCARDIAL PET/CT PERFUSION IMAGING (STRESS/REST) DATE OF STUDY: 07/27/2024 SCANNER: [facility] [employer] ([place]1). ?? RADIOPHARMACEUTICAL: 8.21 mCi N-13 ammonia [...] and myocardial flow reserve (MFR), calculated using [email or web address].me software: ? MBF-stress ?MBF-rest ?MFR LAD: ? [...] IMAGING (STRESS/REST) DATE OF STUDY: 07/27/2024 SCANNER: [facility] [employer] ([place]). RADIOPHARMACEUTICAL: 8.21 mCi N-13 ammonia i.v., [...] t * Surgical pathology (07/20/2024 1:34 PM SENIOR DATA MODELER) Tissue (Gastric/Stomach biopsy) 07/20/2024 9:56 AM SENIOR DATA MODELER Tissue (Duodenum, Biopsy) 07/20/2024 9:56 AM SENIOR DATA MODELER Tissue (Esophageal biopsy) 07/20/2024 9:58 AM SENIOR DATA MODELER Tissue (Esophageal biopsy) 07/20/2024 9:58 AM SENIOR DATA MODELER Narrative PATHOLOGY [facility] ([facility]) - 07/21/2024 1:48 PM SENIOR DATA MODELER EPIC results best viewed via link to PDF [facility] Department of Pathology [address] [place] [address] Note to Patients: This report may contain [...] Final Report Patient Name: ??YAZMIN ETIENNE Address: ??[address] [place] [address], ??[place], [place] [address] Gender: ??F : ??1980 (Age: 43) Service: ??Gastro Location: ??[facility] Hospital #: ??[id number] Patient Type: ??[facility] Accession # ?[id number] Taken: ??07/20/2024 Received: ??07/20/2024 [...] determined by the Surgical Pathology Department at [facility] as part of an ongoing vice president quality program and in compliance with federally mandated [...] characteristics determined by the Surgical Pathology Department [facility]. ??It has not been cleared or approved by the U. S. Food and Drug Administration. Note for decalcified specimens: This assay has not been validated on decalcified tissues. Results should be interpreted with caution given the possibility of false negativity on decalcified specimens Janet Em MD LAB PATHOLOGY ORDERABLES Final R esult Performing Organization Address City/State/[facility] Co de Phone Number PATHOLOGY [address] [address] * EGD (07/20/2024 8:01 AM SENIOR DATA MODELER) Anatomical Region Laterality Modality Other Narrative Procedure Note Janet Em MD - 07/20/2024 8:01 AM CST [facility] Patient Name: Yazmin Etienne Procedure Date: 07/20/2024 8:01 AM Date of : 1980 Admit Type: Outpatient Age: 43 Gender: Female Attending MD: Janet Em M.D. Room: [facility] ENDOSCOPY ROOM 2 Note Status: Finalized Patient [...] procedure were verified by the physician, the sports statistician and the training technician in the endoscopy suite. Mental Status Examination: [...] passed under direct vision. The Endoscope [id number] was introduced through the mouth, and advanced [...] 8:01 AM Procedure Code(s): --- Professional --- 49849, Esophagogastroduodenoscopy, flexible, transoral; withinsertion of guide wire followed by passage of dilator(s) through esophagusover guide wire --- Technical --- 73392, Esophagogastroduodenoscopy, flexible, transoral; withinsertion of guide wire [...] and duodenum R12, Heartburn CPT copyright 2020 [place] [employer]. All rights reserved. The codes documented in this report are preliminary and upon canteen attendant reviewmay be revised to meet current compliance requirements. Recognized by the [place] [employer] for promoting quality in endoscopy us Janet Em MD ENDOSCOPY PROCEDURES Final Resul t * PSG (07/15/2024) Impressions Jody Spencer MD - 07/15/2024 Baseline Polysomnogram Followed By MSLT History: Yazmin Etienne is a 43 y.o. female who presents for baseline polysomnogram. Reason for sleep study: ??Excessive daytime sleeping Calvert sleepiness score: 17 Weight: 162 lbs BMI: 27.95 ? Procedure: This overnight diagnostic baseline polysomnogram was performed with the chief ultrasound technologist in attendance. Patient is studied with [...] scored according to the criteria from The [place] [employer] (AASM) Manual for [...] to follow this study. Jody Spencer MD [facility] Sleep Medicine Narrative Jody [...] Reason for sleep study: ??Excessive daytime sleeping Calvert sleepiness score: 17 Weight: 162 lbs BMI: [...] Clinical correlation is recommended. Jody Spencer MD [facility] Sleep Medicine Narrative Jody Spencer MD - 07/15/2024 MSLT for review us Jody Spencer MD SLEEP CENTER ORDERABLES Edited R esult - Final * LEFT HEART CATHETERIZATION WITH CORONARY ANGIOGRAPHY AND WITH AND WITHOUT LEFT VENTRICULOGRAM (06/30/2024 12:12 PM SENIOR DATA MODELER) Anatomical Region Laterality Modality X-Ray Angiograph y 06/30/2024 Narrative 07/04/2024 8:30 AM SENIOR DATA MODELER [employer] Job ID: [id number] [employer] Document ID: [id number] Dictated date/time: [id number] INDICATION Yazmin Etienne is a 43-year-old female with typical/atypical exertional/nonexertional chest discomfort. ??Initial EKG showed slight ST depression inferolaterally. ??This is similar to an EKG from April 2023. ?? Cardiac enzymes were normal. ??She did have a recently slightly abnormal nuclear stress test at [facility] about 2 weeks ago. ??It showed mild septal wall ischemia. ??Cardiac catheterization was scheduled at [facility] for next week. ??Since she is here now, she is agreeable to a cardiac catheterization. ??She understands risks include the following but not limited to following: ??, CVA, myocardial infarction, infection, vascular problems, dye reaction, dysrhythmias, pain, bleeding, renal failure, need for urgent CABG or stent placement. ??Radiation exposure also discussed with the patient. PROCEDURE The patient was brought down to cardiac wheelabrator operator where she was prepped and draped in usual sterile fashion. ??Time-out was done prior to the procedure. ??ARIA Bateman, was the sedating nurse for total sedation time of 34 minutes. ??The patient received in small increments 2 mg IV Versed, 50 mg IV Benadryl and 100 mcg of fentanyl. ??When well sedated, 1% lidocaine was given to the right groin. ??A 5-Belgian sheath was then placed over a J tipped guidewire without difficulties. ??Femoral angiogram showed a good location for an Angio-Seal device at the end of procedure. ??Next, a 5-Belgian JR4 catheter was then placed into the left ventricle for hemodynamics and pullback. ??Same catheter was then used for right coronary injection done in multiple views. ??Left main was injected in multiple views using a 5-Belgian JL4 catheter. ??Finally, a 5-Belgian angled pigtail catheter was used for hemodynamics. ??It was also used for left ventriculography which was done in the 30-degree CASTRO position. ??LV pullback was then performed. ??This was then followed by Angio-Seal to the right groin. ??Manual pressure was applied for 5 minutes. Patient left the wheelabrator operator without chest pain and with good hemostasis [...] later this afternoon. Job ID/Internal Job ID: ??[id number] us Guerrero Barnes MD CV CARDIAC CATH PROCEDURES Fi nal Result * eGFR (06/30/2024 3:24 AM SENIOR DATA MODELER) Pathologist [facility] eGFR 89 >=60 mL/min/1. 73 m2 Comment: [...] last reviewed 2021. Blood 06/30/2024 3:24 AM SENIOR DATA MODELER 06/30/2024 4:54 AM SENIOR DATA MODELER us Peggy Munoz MD LAB BLOOD ORDERABLES Final Resul t [facility] ([facility]) [address] [facility] Department of Laboratories [place], [place] [id number] * Differential, auto (06/30/2024 3:24 AM SENIOR DATA MODELER) Neutrophil abs 3.3 1.5 - 6.5 K/cumm [...] revised on 2017. Blood 06/30/2024 3:24 AM SENIOR DATA MODELER 06/30/2024 4:54 AM SENIOR DATA MODELER us Peggy Munoz MD LAB BLOOD ORDERABLES Final Resul t [facility] (JACE) 1 [facility] [place] [address] * CBC with auto differential (06/30/2024 3:24 AM SENIOR DATA MODELER) WBC 5.7 3.8 - 9.9 K/cumm Hgb 14.2 11.9 - 15.5 g/dL [facility] (JACE) Hct 42.1 35.6 - 45.5 % [facility] (JACE) Plt 244 150 - 400 K/cumm [facility] (JACE) MPV 10.4 9.1 - 12.3 fL [facility] (JACE) RBC 4.61 3.90 - 5.20 M/cumm [facility] (JACE) MCV 91.3 81.3 - 96.4 fL [facility] (JACE) MCH 30.8 27.1 - 33.3 pg [facility] (JACE) MCHC 33.7 32.3 - 35.7 g/dL [facility] (JACE) RDW CV 13.2 11.1 - 14.9 % [facility] (JACE) RDW SD 44.6 35.7 - 48.1 fL [facility] (JACE) NRBC abs 0.00 0.00 - 0.01 K/cumm [facility] (JACE) Blood 06/30/2024 3:24 AM SENIOR DATA MODELER 06/30/2024 4:54 AM SENIOR DATA MODELER us Peggy Munoz MD LAB BLOOD ORDERABLES Final Resul t Performing Organization Address City/[facility]/ZIP Co de Phone Number [facility] (CONVERSE) 1 [facility] [place] [address] * aPTT (06/30/2024 3:24 AM SENIOR DATA MODELER) aPTT 33 28 - 38 sec [facility] (CONVERSE) Comment: Interpretive Data Heparin therapeutic range: 66.0 - 100.0 seconds. Range based on correlation with therapeutic heparin activity range of 0.3 - 0.7 Units/mL. Current interpretive data was last revised on 2023. Blood 06/30/2024 3:24 AM SENIOR DATA MODELER 06/30/2024 4:53 AM SENIOR DATA MODELER us Mirta Geronimo MD LAB BLOOD ORDERABLES Final Re sult [facility] (CONVERSE) 1 [facility] [place] [address] * Protime-INR (06/30/2024 3:24 AM SENIOR DATA MODELER) PT 11.6 9.7 - 13.0 sec [facility] (JACE) INR 1.07 0.90 - 1.20 [facility] (JACE) Comment: Interpretive data Oral anticoagulant therapeutic ranges: Venous thromboembolism prophylaxis or treatment: 2.0-3.0 CARDIOLOGY Standard range: 2.0-3.0 High-intensity range: 2.5-3.5 Refer to indication-specific guidelines for appropriate target ranges for prosthetic heart valve replacement. Current interpretive data was last revised on 2019. Blood 06/30/2024 3:24 AM SENIOR DATA MODELER 06/30/2024 4:53 AM SENIOR DATA MODELER us Peggy Munoz MD LAB BLOOD ORDERABLES Final Resul t [facility] (CONVERSE) 1 [facility] Department [place] [address] * Basic metabolic panel (06/30/2024 3:24 AM SENIOR DATA MODELER) Sodium 137 135 - 145 mmol/L Potassium, pl 3.8 3.3 - 4.9 mmol/L [facility] (JACE) Chloride 103 97 - 110 mmol/L [facility] (JACE) CO2 24 22 - 32 mmol/L [facility] (JACE) Anion gap 11 2 - 15 mmol/L [facility] (JACE) BUN 11 6 - 25 mg/dL [facility] (JACE) Creatinine 0.83 0.60 - 1.10 mg/dL [facility] (JACE) Glucose 89 70 - 199 mg/dL [facility] (JACE) Comment: Interpretive Data Fasting glucose >/= [...] Calcium 9.2 8.5 - 10.3 mg/dL [facility] (CONVERSE) Blood 06/30/2024 3:24 AM SENIOR DATA MODELER 06/30/2024 4:54 AM SENIOR DATA MODELER us Peggy Munoz MD LAB BLOOD ORDERABLES Final Resul t [facility] (CONVERSE) 1 [facility] Department [place] [address] * ECG 12 lead (06/30/2024 3:10 AM SENIOR DATA MODELER) 06/30/2024 3:10 AM SENIOR DATA MODELER Narrative [facility] - 06/30/2024 8:36 AM SENIOR DATA MODELER Vent Rate: 63 bpm RR Interval: 952 msec OR Interval: 182 msec QRS Duration: 81 msec QT Interval: 438 msec QTC Interval: 444 msec P-R-T [place]: 61 - 43 - 35 degrees IMPRESSION: SINUS RHYTHM NONSPECIFIC T-WAVE ABNORMALITY BORDERLINE ECG Compared to prior EKG, heart rate has decreased Electronically Signed By: Carmine Hernandez MD us Guerrero Barnes MD ECG ORDERABLES Final Result Performing Organization Address [facility] Co de Phone Number [facility] Online Prasad [facility] * COVID-19 Coronavirus RNA Nasopharyngeal (06/29/2024 12:06 PM SENIOR DATA MODELER) COVID-19 RNA Negative Negative Nasopharyngeal 06/29/2024 12 :06 PM SENIOR DATA MODELER 06/29/2024 12:10 PM SENIOR DATA MODELER Narrative [facility] (CONVERSE) - 06/29/2024 12:43 PM SENIOR DATA MODELER Is the patient experiencing any symptoms consistent with COVID (eg. Fever, cough, shortness of breath)?->No What is the reason for testing?->Screening for semi-private room placement ??Interpretive data: Testing performed by [facility]. ??This test is performed using the [employer] Xpert Xpress CoV-2 plus assay. This is a real-time RT-PCR test intended for the qualitative detection of nucleic acid from the SARS-CoV-2. This assay has been cleared by the [place] Food and Drug administration. The performance characteristics have been verified by [facility]. ??Results must be considered in the clinical context, and a negative result does not rule out infection. Interpretive data last revised 2024. us Henrietta Alfaro MD LAB MICROBIOLOGY - GENERA L ORDERABLES Final Result [facility] (CONVERSE) 1 [facility] Department [place] [address] * eGFR (06/29/2024 5:52 AM SENIOR DATA MODELER) eGFR >90 >=60 mL/min/1. 73 m2 Comment: [...] last reviewed 2021. Blood 06/29/2024 5:52 AM SENIOR DATA MODELER 06/29/2024 5:55 AM SENIOR DATA MODELER us Gretchen Lal MD LAB BLOOD ORDERABLES Fin al Result [facility] (CONVERSE) 1 [facility] [place] [address] * (ABNORMAL) Lipid panel (06/29/2024 5:52 AM SENIOR DATA MODELER) Cholesterol 199 30 - 199 mg/dL Comment: [...] 2018. Triglycerides 102 <=149 mg/dL [facility] (CONVERSE) Comment: Interpretive Data Ages < or = [...] LDL, calculated 148(H) <=129 mg/dL [facility] (JCAE) Comment: Interpretive Data Ages < or = [...] [facility] (JACE) Blood 06/29/2024 5:52 AM SENIOR DATA MODELER 06/29/2024 5:55 AM SENIOR DATA MODELER Gretchen Lal MD LAB BLOOD ORDERABLES Fin al Result [facility] (CONVERSE) 1 [facility] Department of Laboratories [place], [place] [id number] * (ABNORMAL) Basic metabolic panel (06/29/2024 5:52 AM SENIOR DATA MODELER) Sodium 135 135 - 145 mmol/L Potassium, pl 4.5 3.3 - 4.9 mmol/L [facility] (JACE) Comment:Moderately Hemolyzed Specimen. Results may [...] 9.0 8.5 - 10.3 mg/dL [facility] (CONVERSE) Blood 06/29/2024 5:52 AM SENIOR DATA MODELER 06/29/2024 5:55 AM SENIOR DATA MODELER us Mirta Geronimo MD LAB BLOOD ORDERABLES Final Re sult [facility] (CONVERSE) 1 [facility] Department [place] [address] * XR Chest PA Lateral 2 Views (06/29/2024 3:46 AM SENIOR DATA MODELER) Anatomical Region Laterality Modality Body, Chest N/A Computed Radiogr aphy 06/29/2024 4:14 AM SENIOR DATA MODELER Narrative 06/29/2024 4:17 AM SENIOR DATA MODELER EXAM DESCRIPTION: ?? XR CHEST PA LATERAL [...] AM T: ??06/29/2024 4:17 AM Report ID: [id number] Reading Location: ??[id number] Procedure Note Sammi José MD - 06/29/2024 [...] by Sammi José M.D. SN: Report ID: [id number] Reading Location: [id number] Peggy Munoz MD IMG XR PROCEDURES Final Result * Troponin T high-sensitivity series (baseline, 2hr, 4hr, 6hr) (06/29/2024 3:36 AM SENIOR DATA MODELER) Trop T hs <6 <=14 ng/L Comment: Interpretive Data For further hscTnT resources including the diagnostic algorithm and an aid in interpretation, copy and paste this link: https://nrl.testcatalog.org/show/hsTrop Current Interpretive Data last revised 2020. Blood 06/29/2024 3:36 AM SENIOR DATA MODELER 06/29/2024 3:38 AM SENIOR DATA MODELER Peggy Munoz MD LAB BLOOD ORDERABLES Final Resul t [facility] (CONVERSE) 1 [facility] Department [place] [address] * eGFR (06/29/2024 3:36 AM SENIOR DATA MODELER) Pathologist [facility] eGFR >90 >=60 mL/min/1. 73 m2 Comment: [...] last reviewed 2021. Blood 06/29/2024 3:36 AM SENIOR DATA MODELER 06/29/2024 3:38 AM SENIOR DATA MODELER us Peggy Munoz MD LAB BLOOD ORDERABLES Final Resul t [facility] (CONVERSE) 1 [facility] Department [place] [address] * Differential, auto (06/29/2024 3:36 AM SENIOR DATA MODELER) Pathologist [facility] Neutrophil abs 4.5 1.5 - 6.5 K/cumm [...] revised on 2017. Blood 06/29/2024 3:36 AM SENIOR DATA MODELER 06/29/2024 3:38 AM SENIOR DATA MODELER us Peggy Munoz MD LAB BLOOD ORDERABLES Final Resul t Performing Organization Address City/[facility]/ZIP Co de Phone Number [facility] (JACE) 1 [facility] [employer] [place] [address] * CBC with auto differential (06/29/2024 3:36 AM SENIOR DATA MODELER) WBC 6.9 3.8 - 9.9 K/cumm Hgb [...] [facility] (JACE) Blood 06/29/2024 3:36 AM SENIOR DATA MODELER 06/29/2024 3:38 AM SENIOR DATA MODELER us Peggy Munoz MD LAB BLOOD ORDERABLES Final Resul t [facility] (JACE) 1 [facility] [place] [address] * D-dimer, quantitative (06/29/2024 3:36 AM SENIOR DATA MODELER) D-Dimer 423 <=499 ng/mL FEU [facility] [...] revised on 2019. Blood 06/29/2024 3:36 AM SENIOR DATA MODELER 06/29/2024 5:45 AM SENIOR DATA MODELER us Peggy Munoz MD LAB BLOOD ORDERABLES Final Resul t [facility] (CONVERSE) 1 [facility] Department [place] [address] * (ABNORMAL) Comprehensive metabolic panel (06/29/2024 3:36 AM SENIOR DATA MODELER) Sodium 138 135 - 145 mmol/L Potassium, [...] Slightly Hemolyzed Specimen Blood 06/29/2024 3:36 AM SENIOR DATA MODELER 06/29/2024 3:38 AM SENIOR DATA MODELER us Peggy Munoz MD LAB BLOOD ORDERABLES Final Resul t Performing Organization Address City/[facility]/ZIP Co de Phone Number [facility] (JACE) 1 [facility] [place] [address] * ECG 12 lead (06/29/2024 3:04 AM SENIOR DATA MODELER) 06/29/2024 3:04 AM SENIOR DATA MODELER Narrative [facility] - 06/29/2024 8:41 AM SENIOR DATA MODELER Vent Rate: 93 bpm RR Interval: 643 msec OR Interval: 153 msec QRS Duration: 86 msec QT Interval: 325 msec QTC Interval: 376 msec P-R-T [place]: 77 - 69 - 4 degrees IMPRESSION: SINUS RHYTHM NONSPECIFIC ST \T\ T-WAVE ABNORMALITY No significant change from prior EKG Electronically Signed By: Dr Guerrero Barnes us Peggy Munoz MD ECG ORDERABLES Final Result [facility] Online Prasad [facility] * eGFR (06/24/2024 9:17 AM SENIOR DATA MODELER) eGFR >90 >=60 mL/min/1. 73 m2 Comment: [...] last reviewed 2021. Blood 06/24/2024 9:17 AM SENIOR DATA MODELER 06/24/2024 9:37 AM SENIOR DATA MODELER us Prasad Lopez MD LAB BLOOD ORDERABLES Final Res ult Performing Organization Address City/State/[facility] Co de Phone Number [facility] (CONVERSE) 1 [facility] Department [place] [address] * Differential, auto (06/24/2024 9:17 AM SENIOR DATA MODELER) Neutrophil abs 3.4 1.5 - 6.5 K/cumm Imm gran abs 0.0 0.0 - 0.1 K/cumm [facility] (CONVERSE) Lymphocyte abs 2.4 0.8 - 3.3 K/cumm [facility] (CONVERSE) Monocyte abs 0.6 0.2 - 0.8 K/cumm [facility] (CONVERSE) Eosinophil abs 0.2 0.0 - 0.5 K/cumm [...] revised on 2017. Blood 06/24/2024 9:17 AM SENIOR DATA MODELER 06/24/2024 9:37 AM SENIOR DATA MODELER us Prasad Lopez MD LAB BLOOD ORDERABLES Final Res ult [facility] (CONVERSE) 1 [facility] Department [place] [address] * CBC with auto differential (06/24/2024 9:17 AM SENIOR DATA MODELER) WBC 6.6 3.8 - 9.9 K/cumm Hgb [...] [facility] (JACE) Blood 06/24/2024 9:17 AM SENIOR DATA MODELER 06/24/2024 9:37 AM SENIOR DATA MODELER us Prasad Lopez MD LAB BLOOD ORDERABLES Final Res ult [facility] (JACE) 1 [facility] Department [place] [address] * Basic metabolic panel (06/24/2024 9:17 AM SENIOR DATA MODELER) Sodium 140 135 - 145 mmol/L Potassium, [...] 9.1 8.5 - 10.3 mg/dL [facility] (CONVERSE) Blood 06/24/2024 9:17 AM SENIOR DATA MODELER 06/24/2024 9:37 AM SENIOR DATA MODELER us Prasad Lopez MD LAB BLOOD ORDERABLES Final Res ult [facility] (JACE) 1 [facility] [place] [address] * NM MPI SPECT (Rest and/or Stress) Multiple Studies (06/19/2024 10:45 AM SENIOR DATA MODELER) Anatomical Region Laterality Modality Body N/A Electrocardiogra phy Narrative 06/21/2024 9:20 PM SENIOR DATA MODELER Table formatting from the original result was not included. [place] [facility] [address] [address] Nuclear MPI Pharmaceutical Study Patient Name: Yazmin [...] W DOPPLER/CF WO CONTRAST (06/19/2024 8:17 AM SENIOR DATA MODELER) LV EF 62 % CARDIOREPORT Anatomical Region Laterality Modality Ultrasound 06/19/2024 7:30 AM SENIOR DATA MODELER Narrative 06/19/2024 6:17 PM SENIOR DATA MODELER Patient name: Yazmin Etienne Date of test: 06/19/2024 Type of test: TTE w/Doppler Hospital #: 0 Date of : 1980 (F) Planing Machine Operator: Trevor Betts RDCS Referring Physician: PRASAD LOPEZ MD Contrast Agent: Contrast Administered by: Supervised/Interpreted by: Prasad Lopez MD Diagnosis: Location: [facility] Reason for test: CP, CAD MV Structure: [...] 2=Hypo 3=Akinetic 4=Dyskin./Aneurysm 0=Not visualized) Parasternal Long [place]:MAS=1 BAS=1 MIL=1 WILLIAM=1 Parasternal Short [place]:MAS=1 MIS=1 NM=1 MIL=1 MAL=1 MA=1 Apical 4 Chambers:=1 MIS=1 BIS=1 BAL=1 MAL=1 AL=1 AC=1 Apical 2 Chambers:AI=1 NM=1 BI=1 BA=1 MA=1 AA=1 AC=1 LV Global [...] MD By signing this report, the attending insights strategist certifies that he or she has personally supervised and interpreted the echocardiogram and has reviewed and or edited and agrees with the written comments contained within the report. Procedure Note Prasad Lopez MD - 06/19/2024 Patient name: Yazmin Etienne Date of test: 06/19/2024 Type of test: TTE w/Doppler [facility] #: 0 Date of : 1980 (F) Planing Machine Operator: Trevor Betts RDCS Referring Physician: PRASAD LOPEZ MD Contrast Agent: Contrast Administered by: Supervised/Interpreted by: Prasad Lopez MD Diagnosis: Location: [facility] Reason for test: CP, CAD MV Structure: [...] 2=Hypo 3=Akinetic 4=Dyskin./Aneurysm 0=Not visualized) Parasternal Long [place]:MAS=1 BAS=1 MIL=1 WILLIAM=1 Parasternal Short [place]:MAS=1 MIS=1 NM=1 MIL=1 MAL=1 MA=1 Apical 4 Chambers:=1 MIS=1 BIS=1 BAL=1 MAL=1 AL=1 AC=1 Apical 2 Chambers:AI=1 NM=1 BI=1 BA=1 MA=1 AA=1 AC=1 LV Global [...] MD By signing this report, the attending insights strategist certifies that he or she has personally supervised and interpreted the echocardiogram and has reviewed and or edited and agrees with the written comments contained within the report. Prasad Lpoez MD CV ECHO PROCEDURES Final Resul t from Last 3 Months Insurance [facility] Advance Directives For more information, please contact: [phone] * Full Code (Latest Code Status on [...] 7:04 AM 11/05/2023 7:04 AM Care Teams Pastrycook'S Assistant Relationship Specialty Start Date End Date Alicia Cueva PA [address] [place] [id number] PCP - General Physician Instructor Kindergarten 05/13/22
--- OUTSIDE RECORDS SUMMARY | 2024-08-11 15:52 | XMS_ITS | Encounter Summary ---
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 Not on file Not on file documented as of this encounter Plan of Treatment Upcoming Encounters Date Type Department Care Team (Latest Contact Info) Description 02/02/2025 11:00 AM CDT Hospital Encounter [facility] [address] [place] [address] Janet Em MD [address] [place] [address] 02/02/2025 11:00 AM CDT - 02/02/2025 11:55 AM CDT Surgery [address] [address] Janet Em MD [address] [place] [address] ESOPHAGOGASTRODUODENOSCOPY Scheduled Procedures Name Priority Associated Diagnoses [...] documented as of this encounter Care Teams Zoology Technical Officer Relationship Specialty Start Date End Date Alicia Cueva PA [address] [place] [id number] PCP - General Physician Refrigeration Plant Cork Insulator 05/13/22 documented as of this encounter
--- OUTSIDE RECORDS SUMMARY | 2024-08-11 15:52 | XMS_ITS | Encounter Summary ---
Author Organization [facility] Address [address] [place] [address] Phone Care Team Providers Care Guide Foreign Tour Name Role Phone Alicia Cueva Primary Care Provider [phone] Encounter Details Date Type Department Care Team (Late st Contact Info) Description 08/11/2024 Telephone [facility] [address] [facility] Advanced [facility] 8th [place] [address] [place] [address] Abdoulaye Radford MD [address] [facility] [address] [address] [place] [address] Social History Tobacco Use Types [...] on file Legal Sex Female 3:36 PM DISTRICT SALES MANAGER Gender Identity Not on file Sexual Orientation Not on file 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 Advised patient that she should go to ED for eval. Patient will go to ED with the next hour. 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 RICT SALES MANAGER * Telephone Encounter - Sarah Hussein - [...] with her and will answer the call. RICT SALES MANAGER documented in this encounter Plan of Treatment Upcoming Encounters Date Type Department Care Team (Latest Contact Info) Description 02/02/2025 11:00 AM CDT Hospital Encounter [facility] Center [address] [place] [address] Janet Em MD [address] [address] 02/02/2025 11:00 AM CDT - 02/02/2025 11:55 AM CDT Surgery [facility] 1 [place] [address] Janet Em MD [address] [place] [address] [address] [place] [address] ESOPHAGOGASTRODUODENOSCOPY Scheduled Procedures Name Priority Associated Diagnoses Date/Ti me ESOPHAGOGASTRODUODENOSCOPY Diarrhea, unspecified type Esophagitis 02/02/2025 11:00 AM CDT COLONOSCOPY Diarrhea, unspecified type Esophagitis 02/02/2025 11:00 AM CDT documented as of this encounter Visit Diagnoses Not on filedocumented in this encounter Care Teams Guide Foreign Tour Relationship Specialty Start Date End Date Alicia Cueva PA [address] [place] [id number] PCP - General Physician Straw Hat Presser 05/13/22 documented as of this encounter
--- OUTSIDE RECORDS SUMMARY | 2024-08-11 15:52 | XMS_ITS | Referral Summary ---
Author Organization [facility] Address [address] [place] [address] Care Team Providers Care Rail Signal Worker Name Role Phone Alicia Cueva Primary Care Provider [phone] Encounters Date Type Department Care Team Description 5 Telephone [facility] Cardiology [facility] Medicine 8th [place] [address] [place] [phone] Prasad Lopez MD 5 2:00 PM [facility] Office Visit [facility] Sleep Medicine at [address] [place] [address] Jody Spencer MD Hypersomnolence (Primary Dx); Snoring; Overweight; Insomnia, unspecified type 5 Telephone [facility] Cardiology [address] [place] [address] Medicine 8th [place] [address] [place] [phone] Prasad Lopez MD Hypotension; Med Management (Amlodipine held) 5 1:13 PM [facility] - 5 11:59 PM [facility] Hospital Encounter [facility] Radiology [facility] [address] [place] [address] Discharge Disposition: Discharge to home or self care 5 1:13 PM [facility] - 5 11:59 PM [facility] Hospital Encounter [facility] Radiology [facility] [address] [place] [address] Discharge Disposition: Discharge to home or self care 5 1:13 PM [facility] - 5 11:59 PM [facility] Hospital Encounter 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; Precordial chest pain; Dyspnea on exertion Discharge Disposition: Discharge to home or self care 5 Telephone [facility] Gastroenterology at [place] [address] [facility] [address] [place] [phone] Hailey Moran Schedule EGD & Colonoscopy 5 Telephone [facility] [address] [facility] [address] [place] [address] Annika Mackenzie MA 5 9:00 AM [facility] - 5 9:55 AM [facility] Surgery [address] [address] Janet Em MD ESOPHAGOGASTRODUODENOSCOPY ESOPHAGEAL GUIDE WIRE 5 9:26 AM [facility] Anesthesia Event [address] [address] Jonah Stahl MD Zirkelbach, Cecilia A., CRNA 5 7:59 AM [facility] - 5 10:46 AM [facility] Hospital Encounter [address] [address] Janet Em MD Encounter for screening colonoscopy; Dysphagia, unspecified type; Odynophagia; Colitis; Globus sensation; Diarrhea of presumed infectious origin Discharge Disposition: Discharge to home or self care 4 Telephone [facility] Scheduling [address] [facility] [place] [address] Prasad Lopez MD 4 10:00 AM [facility] Office Visit [facility] Cardiology [address] [facility] [address] [place] [address] Prasad Lopez MD Other chest pain (Primary Dx); 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; Precordial chest pain; Dyspnea on exertion 4 6:00 AM [facility] - 4 11:59 PM [facility] Hospital Encounter [facility] [address] [place] [address] Hypersomnolence Discharge Disposition: Discharge to home or self care 4 7:00 PM [facility] - 4 11:59 PM [facility] Hospital Encounter [facility] [address] [place] [address] SARAHY (obstructive sleep apnea ) Discharge Disposition: Discharge to home or self care 4 Telephone [facility] G[facility]enterology at [place] [address] [facility] [address] [place] [address] Carmina Cartagena MA 4 Telephone [facility] Cardiology [address] [place] [address] 8th [place] [address] [place] [address] Prasad Lopez MD Appointment 4 11:00 AM [facility] - 4 12:05 PM [facility] Surgery [facility] Cardiac Catheterization [address] [place] [address] Guerrero Barnes MD LEFT HEART CATHETERIZATION WITH CORONARY ANGIOGRAPHY AND WITH OR WITHOUT LEFT VENTRICULOGRAM [id number] 4 3:56 AM [facility] - 4 3:48 PM [facility] Emergency [facility] Acute Medicine [address] [place] [address] Peggy Munoz MD Abegunde, Veronica O., MD Quaizar, Huzaifa, MD Abnormal stress test (Primary Dx); Other chest pain Discharge Disposition: Discharge to home or self care 4 Telephone [facility] Cardiology [address] [place] [address] 8th [place] [address] [place] [address] Prasad Lopez MD 4 9:00 AM [facility] Lab [facility] [address] [place] [address] Pre-operative cardiovascular examination 4 8:45 AM [facility] Office Visit [facility] Cardiology [address] [facility] [address] [place] [address] Prasad Lopez MD Pre-operative cardiovascular examination (Primary Dx) 4 8:30 AM [facility] Ancillary Procedure [facility] Cardiology [address] [place] [address] [place] [address] Precordial chest pain; Hyperlipidemia, unspecified hyperlipidemia type; Coronary artery disease, unspecified vessel or lesion type, unspecified whether angina present, unspecified whether chitina or transplanted heart 4 7:30 AM [facility] Ancillary Procedure [facility] Cardiology [address] [place] [address] [place] [address] Precordial chest pain; Hyperlipidemia, unspecified hyperlipidemia type; Coronary artery disease, unspecified vessel or lesion type, unspecified whether angina present, unspecified whether chitina or transplanted heart 4 Telephone [facility] Gastroenterology at [address], [place] [address] Yadira Houston LPN 4 Orders Only [facility] Gastroenterology at [address], [place] [address] Janet Em MD 4 Telephone [facility] Gastroenterology at [address] [phone] Carmina Cartagena MA 4 8:30 AM [facility] Office Visit [facility] Pulmonary at [address] [phone] Cailin Bridges NP Asthma-COPD overlap syndrome (HCC) (Primary Dx); Centrilobular emphysema (HCC); Laryngopharyngeal reflux (LPR); Alpha 1-antitrypsin PiMS phenotype; Cigarette nicotine dependence without complication 4 1:15 PM [facility] Office Visit [facility] Sleep Medicine at [address] [phone] Jody Spencer MD Hypersomnia (Primary Dx); Sleep [...] (INCRUSE ELLIPTA) 62.5 mcg/actuation blister with deviceIndicati ons:Asthma-CLINICAL TRIALS SPECIALIST D overlap syndrome (HCC) Inhale 1 puff [...] 02/16/2024 Assessment & Plan (05/29/2024 9:55 AM [facility]): Last level was 149 in 2022 PFT with decrease in FEV1 Level 139 January 2024 Assessment & Plan (02/16/2024 3:06 PM CDT): Last level was 149 in 2022 PFT with decrease in FEV1 I will recheck her levels today Asthma-COPD overlap syndrome 02/16/2024 Assessment & Plan (05/29/2024 9:56 AM [facility]): Continue Dulera 200 twice daily She is [...] 12/28/2023 Assessment & Plan (05/29/2024 9:59 AM [facility]): - Smoking cessation counseling and techniques reviewed at length - Avoid triggers and use distraction techniques - Participate in support groups - Information given regarding [place] Tobacco Quit line: 0-527-QCMQ-YES for free services - 4 minutes spent [...] in support groups - Information given regarding [place] Tobacco Quit line: 0-853-HNAS-YES for free services - 4 minutes spent discussing cessation Assessment & Plan (12/28/2023 9:25 AM CDT): - Smoking cessation counseling and techniques reviewed at length - Avoid triggers and use distraction techniques - Information given regarding [place] Tobacco Quit line: 3-967-HPMG-YES for free services - 4 minutes spent discussing cessation Vapes nicotine containing substance 12/28/2023 Assessment & Plan (12/28/2023 9:25 AM CDT): She admits this is significantly increased in the last 3 months in particular with stressors at home and trying to cut down on cigarettes We have discussed complete cessation Laryngopharyngeal reflux (LPR) 12/28/2023 Assessment & Plan (05/29/2024 10:01 AM [facility]): Continue pantoprazole 40 mg twice daily Elevate [...] 08/13/2023 Assessment & Plan (05/29/2024 9:58 AM [facility]): PFT does not show obstruction- rather air [...] 2023 Assessment & Plan (08/13/2023 11:32 AM [facility]): She has had little benefit from inhaled therapy, leading me to believe that her dyspnea is not primary pulmonary in origin. PFT shows air trapping but not obstruction. She is on triple therapy and has tried multiple inhalers. I have encouraged smoking cessation A1AT MS Level 149 with no obstruction on PFT Multiple nodules of lung 08/13/2023 Assessment & Plan (08/13/2023 10:59 AM [facility]): Resolved Dysphagia 06/24/2023 Assessment & Plan (12/27/2023 [...] GI Assessment & Plan (08/13/2023 11:07 AM [facility]): Her PFT shows no fixed obstriction, but [...] (02/04/2021): Added automatically from request for surgery [id number] Right elbow tendinitis 02/01/2021 Insomnia 09/06/2019 Resolved [...] 08/13/202312/17 Assessment & Plan (08/13/2023 10:59 AM [facility]): - Smoking cessation counseling and techniques reviewed at length - Literature reviewed - Avoid triggers and use distraction techniques - Participate in support groups - Information given regarding [place] Tobacco Quit line: 2-378-IQSA-YES for free services - 4 minutes spent [...] on file Legal Sex Female 3:36 PM [facility] Gender Identity Not on file Sexual Orientation Not on file 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 Not on file Not on file Not on file Last Filed Vital Signs Vital Sign Reading Time Taken Comments Blood Pressure 104/66 08/07/2024 1:44 PM [facility] Pulse 78 08/07/2024 1:44 PM [facility] Temperature 36.9 ??C (98.5 ??F) 07/20/2024 10:[address] Respiratory Rate 18 07/20/2024 10:32 AM [facility] Oxygen Saturation 97% 08/07/2024 1:44 PM [facility] Inhaled Oxygen Concentration - - Weight 77.8 kg (171 lb 9.6 oz) 08/07/2024 1:44 P M [facility] Height 162.6 cm (5' 4.02 ) 08/07/2024 1:44 PM CS T Body Mass Index 29.44 08/07/2024 1:44 PM [facility] Plan of Treatment Upcoming Encounters Date Type Department Care Team (Latest Contact Info) Description 02/02/2025 11:00 AM CDT Hospital Encounter [facility] [address] [place] [address] Janet Em MD [address] [place] [address] [address] [place] [address] 02/02/2025 11:00 AM CDT - 02/02/2025 11:55 AM CDT Surgery [facility] [address] [place] [address] Janet Em MD [address] [facility] [address] [place] [address] ESOPHAGOGASTRODUODENOSCOPY Scheduled Procedures Name Priority Associated Diagnoses Date/Ti me ESOPHAGOGASTRODUODENOSCOPY Diarrhea, unspecified type Esophagitis 02/02/2025 11:00 AM CDT COLONOSCOPY Diarrhea, unspecified type Esophagitis 02/02/2025 11:00 AM CDT Medical Devices Implanted Type Area Silverware Assembler Device Identifier Shelf Expiration Date Model / Serial / Lot Patch of Land Aria Angio-Seal Vip 6fr Closere Device [id number] - [id number] Implanted:Qty: 1 on 06/30/2024 by Guerrero Barnes MD at [facility] 11/11/2024 [id number] / / [id number] Procedures Procedure Name Priority Date/Time Associated Diagnosis Comments PET STRESS TEST Schedule Routine, Read Routine (OP Routine) 07/27/2024 3:52 PM [facility] Other chest pain 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 Precordial chest pain Dyspnea on exertion PET/CT MYOCARDIAL PERFUSION IMAGING (MULTIPLE) Schedule Routine, Read Routine (OP Routine) 07/27/2024 3:52 PM [facility] Other chest pain 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 Precordial chest pain Dyspnea on exertion SURGICAL PATHOLOGY STAT 07/20/2024 1:34 PM [facility] Encounter for screening colonoscopy Dysphagia, unspecified type Odynophagia Colitis Globus sensation Diarrhea of presumed infectious origin ENDO ADD ON ESOPHAGOGASTRODUODENOSCOPY BIOPSY 07/20/2024 9:21 AM [facility] Encounter for screening colonoscopy Dysphagia, unspecified type Odynophagia Colitis Globus sensation Diarrhea of presumed infectious origin ESOPHAGOGASTRODUODENOSCOPY ESOPHAGEAL GUIDE WIRE 07/20/2024 9:21 AM [facility] Encounter for screening colonoscopy Dysphagia, unspecified type Odynophagia Colitis Globus sensation Diarrhea of presumed infectious origin EGD 07/20/2024 8:01 AM [facility] MULTIPLE SLEEP LATENCY TEST Routine 07/15/2024 Hypersomnolence PSG (SIMPLE) Routine 07/15/2024 SARAHY (obstructive sleep apnea) LEFT HEART CATHETERIZATION WITH CORONARY ANGIOGRAPHY AND WITH AND WITHOUT LEFT VENTRICULOGRAM Routine 06/30/2024 12:12 PM [facility] Abnormal stress test EGFR Routine 06/30/2024 3:24 AM [facility] DIFFERENTIAL AUTO Routine 06/30/2024 3:24 AM [facility] BASIC METABOLIC PANEL Routine 06/30/2024 3:24 AM [facility] CBC WITH AUTO DIFFERENTIAL Routine 06/30 3:24 AM [facility] APTT Routine 06/30/2024 3:24 AM [facility] PROTIME-INR Routine 06/30/2024 3:24 AM [facility] ECG 12-LEAD Routine 06/30/2024 3:10 AM [facility] COVID-19 CORONAVIRUS RNA Routine 024 12:06 PM [facility] EGFR Routine 06/29/2024 5:52 AM [facility] LIPID PANEL Routine 06/29/2024 5:52 AM [facility] BASIC METABOLIC PANEL Routine 06/29/2024 5:52 AM [facility] XR CHEST PA LATERAL 2 VIEWS ED 06/18 3:46 AM [facility] D-DIMER, QUANTITATIVE STAT 06/29/2024 3:36 AM [facility] EGFR STAT 06/29/2024 3:36 AM [facility] DIFFERENTIAL AUTO STAT 06/29/2024 3:36 AM [facility] TROPONIN T HIGH-SENSITIVITY SERIES (BASELINE, 2HR, 4HR, 6HR) STAT 06/29/2024 3:36 AM [facility] CBC WITH AUTO DIFFERENTIAL STAT 06/29 3:36 AM [facility] COMPREHENSIVE METABOLIC PANEL STAT 3:36 AM [facility] ECG 12-LEAD Routine 06/29/2024 3:04 AM [facility] EGFR Routine 06/24/2024 9:17 AM [facility] Pre-operative cardiovascular examination DIFFERENTIAL AUTO Routine 06/24/2024 9:17 AM [facility] Pre-operative cardiovascular examination BASIC METABOLIC PANEL Routine 06/24/2024 9:17 AM [facility] Pre-operative cardiovascular examination CBC WITH AUTO DIFFERENTIAL Routine 06/24 9:17 AM [facility] Pre-operative cardiovascular examination NM MPI SPECT (REST AND/OR STRESS) MULTIPLE STUDIES Schedule Routine, Read Routine (OP Routine) 06/19/2024 10:45 AM [facility] Precordial chest pain Hyperlipidemia, unspecified hyperlipidemia type Coronary artery disease, unspecified vessel or lesion type, unspecified whether angina present, unspecified whether chitina or transplanted heart TRANSTHORACIC ECHO (TTE) COMPLETE W DOPPLER/CF WO CONTRAST Routine 06/19/2024 8:17 AM [facility] Precordial chest pain Hyperlipidemia, unspecified hyperlipidemia type Coronary artery disease, unspecified vessel or lesion type, unspecified whether angina present, unspecified whether chitina or transplanted heart from Last 3 Months Results * PET Stress Test (07/27/2024 3:52 PM [facility]) Anatomical Region Laterality Modality N/A Positron Emissio n Tomography (PET) Impressions 07/27/2024 4:40 PM [facility] Electrocardiographically normal pharmacologic stress test I personally supervised and was present throughout the stress test. Refer to the separate report of the PET myocardial perfusion imaging results. Narrative 07/27/2024 4:40 PM [facility] EXAMINATION: PHARMACOLOGIC STRESS TEST FOR CARDIAC PET [...] Myocardial Perfusion Imaging (Multiple) (07/27/2024 3:52 PM [facility]) Anatomical Region Laterality Modality Body N/A Positron Emissio n Tomography (PET) 07/27/2024 4:58 PM [facility] Impressions 07/28/2024 9:27 AM [facility] 1. ??Rest and pharmacologic-stress myocardial perfusion images [...] Kane Medina M.D. Narrative 07/28/2024 9:27 AM [facility] EXAMINATION: MYOCARDIAL PET/CT PERFUSION IMAGING (STRESS/REST) DATE OF STUDY: 07/27/2024 SCANNER: [facility] [employer] (NV1). ?? RADIOPHARMACEUTICAL: 8.21 mCi N-13 ammonia [...] IMAGING (STRESS/REST) DATE OF STUDY: 07/27/2024 SCANNER: [facility] [employer] (NV1). RADIOPHARMACEUTICAL: 8.21 mCi N-13 ammonia i.v., [...] and myocardial flow reserve (MFR), calculated using [employer] software: MBF-stress MBF-rest MFR LAD: 2.54 1.18 [...] t * Surgical pathology (07/20/2024 1:34 PM [facility]) Tissue (Gastric/Stomach biopsy) 07/20/2024 9:56 AM [facility] Tissue (Duodenum, Biopsy) 07/20/2024 9:56 AM [facility] Tissue (Esophageal biopsy) 07/20/2024 9:58 AM [facility] Tissue (Esophageal biopsy) 07/20/2024 9:58 AM [facility] Narrative PATHOLOGY [facility] - 07/21/2024 1:48 PM [facility] EPIC results best viewed via link to PDF [facility] Department of Pathology [address] [place] [address] Note to Patients: This report may contain [...] Final Report Patient Name: ??YAZMIN ETIENNE Address: ??[address] [place] [address], ??[place], [place] [address] Gender: ??F : ??1980 (Age: 43) Service: ??Gastro Location: ??[facility] ENDO [facility] #: ??[id number] Patient Type: ??[facility] SDS Accession # ?[id number] [...] [facility] as part of an ongoing senior data quality analyst program and in compliance with federally mandated [...] characteristics determined by the Surgical Pathology Department [facility]. ??It has not been cleared or approved by the U. S. Food and Drug Administration. Note for decalcified specimens: This assay has not been validated on decalcified tissues. Results should be interpreted with caution given the possibility of false negativity on decalcified specimens Janet Em MD LAB PATHOLOGY ORDERABLES Final R esult Performing Organization Address City/State/[facility] Co de Phone Number PATHOLOGY [facility] [address] [place] [address] * EGD (07/20/2024 8:01 AM [facility]) Anatomical Region Laterality Modality Other Narrative Procedure Note Janet Em MD - 07/20/2024 8:01 AM CST [facility] Patient Name: Yazmin Etienne Procedure Date: 07/20/2024 8:01 AM Date of : 1980 Admit Type: Outpatient Age: 43 Gender: Female Attending MD: Janet Em M.D. Room: [facility] ENDOSCOPY ROOM 2 Note Status: Finalized Patient [...] procedure were verified by the physician, the automotive salesperson and the pbx technician in the endoscopy suite. Mental Status [...] passed under direct vision. The Endoscope [id number]-[id number] was introduced through the mouth, and advanced [...] 8:01 AM Procedure Code(s): --- Professional --- 59957, Esophagogastroduodenoscopy, flexible, transoral; withinsertion of guide wire followed by passage of dilator(s) through esophagusover guide wire --- Technical --- 31736, Esophagogastroduodenoscopy, flexible, transoral; withinsertion of guide wire [...] and duodenum R12, Heartburn CPT copyright 2020 [employer]. All rights reserved. The codes documented in this report are preliminary and upon recruiting associate reviewmay be revised to meet current compliance requirements. Recognized by the [employer] for promoting quality in endoscopy us Janet Em MD ENDOSCOPY PROCEDURES Final Resul t * PSG (07/15/2024) Impressions Jody Spencer MD - 07/15/2024 Baseline Polysomnogram Followed By MSLT History: Yazmin Etienne is a 43 y.o. female who presents for baseline polysomnogram. Reason for sleep study: ??Excessive daytime sleeping [place] sleepiness score: 17 Weight: 162 lbs BMI: 27.95 ? Procedure: This overnight diagnostic baseline polysomnogram was performed with the ct technologist in attendance. Patient is studied with [...] scored according to the criteria from The [employer] (AASM) Manual for [...] to follow this study. Jody Spencer MD [facility] Sleep Medicine Narrative Jody Spencer [...] Reason for sleep study: ??Excessive daytime sleeping [place] sleepiness score: 17 Weight: 162 lbs BMI: [...] Clinical correlation is recommended. Jody Spencer MD [facility] Sleep Medicine Narrative Jody Spencer MD - 07/15/2024 MSLT for review us Jody Spencer MD SLEEP CENTER ORDERABLES Edited R esult - Final * LEFT HEART CATHETERIZATION WITH CORONARY ANGIOGRAPHY AND WITH AND WITHOUT LEFT VENTRICULOGRAM (06/30/2024 12:12 PM [facility]) Anatomical Region Laterality Modality X-Ray Angiograph y 06/30/2024 Narrative 07/04/2024 8:30 AM [facility] [employer] Job ID: [id number] [employer] Document ID: [id number] Dictated date/time: [id number] INDICATION Yazmin Etienne is a 43-year-old female with typical/atypical exertional/nonexertional chest discomfort. ??Initial EKG showed slight ST depression inferolaterally. ??This is similar to an EKG from April 2023. ?? Cardiac enzymes were normal. ??She did have a recently slightly abnormal nuclear stress test at [facility] about 2 weeks ago. ??It showed mild septal wall ischemia. ??Cardiac catheterization was scheduled at [facility] for next week. ??Since she is here now, she is agreeable to a cardiac catheterization. ??She understands risks include the following but not limited to following: ??, CVA, myocardial infarction, infection, vascular problems, dye reaction, dysrhythmias, pain, bleeding, renal failure, need for urgent CABG or stent placement. ??Radiation exposure also discussed with the patient. PROCEDURE The patient was brought down to cardiac laboratory secretary where she was prepped and draped in usual sterile fashion. ??Time-out was done prior to the procedure. ??ARIA Bateman, was the sedating nurse for total sedation time of 34 minutes. ??The patient received in small increments 2 mg IV Versed, 50 mg IV Benadryl and 100 mcg of fentanyl. ??When well sedated, 1% lidocaine was given to the right groin. ??A 5-Maltese sheath was then placed over a J tipped guidewire without difficulties. ??Femoral angiogram showed a good location for an Angio-Seal device at the end of procedure. ??Next, a 5-Maltese JR4 catheter was then placed into the left ventricle for hemodynamics and pullback. ??Same catheter was then used for right coronary injection done in multiple views. ??Left main was injected in multiple views using a 5-Maltese JL4 catheter. ??Finally, a 5-Maltese angled pigtail catheter was used for hemodynamics. ??It was also used for left ventriculography which was done in the 30-degree CASTRO position. ??LV pullback was then performed. ??This was then followed by Angio-Seal to the right groin. ??Manual pressure was applied for 5 minutes. Patient left the laboratory secretary without chest pain and with good hemostasis [...] later this afternoon. Job ID/Internal Job ID: ??[id number] us Guerrero Barnes MD CV CARDIAC CATH PROCEDURES Fi nal Result * eGFR (06/30/2024 3:24 AM [facility]) eGFR 89 >=60 mL/min/1. 73 m2 Comment: [...] last reviewed 2021. Blood 06/30/2024 3:24 [facility] 06/30/2024 4:54 AM [facility] us Peggy Munoz MD LAB BLOOD ORDERABLES Final Resul t [facility] ([place]) 1 [facility] [place] [address] * Differential, auto (06/30/2024 3:24 AM [facility]) Pathologist [facility] [place] Neutrophil abs 3.3 1.5 - 6.5 K/cumm Imm gran abs 0.0 0.0 - 0.1 K/cumm [facility] ([place]) Lymphocyte abs 1.6 0.8 - 3.3 K/cumm [facility] ([place]) Monocyte abs 0.6 0.2 - 0.8 K/cumm [...] revised on 2017. Blood 06/30/2024 3:24 AM [facility] 06/30/2024 4:54 AM [facility] us Peggy Munoz MD LAB BLOOD ORDERABLES Final Resul t [facility]LAILA [facility] ([place]) 1 [facility] [place] [address] * CBC with auto differential (06/30/2024 3:24 AM [facility]) WBC 5.7 3.8 - 9.9 K/cumm Hgb 14.2 11.9 - 15.5 g/dL [facility] ([place]) Hct 42.1 35.6 - 45.5 % [facility] ([place]) Plt 244 150 - 400 K/cumm [facility] ([place]) MPV 10.4 9.1 - 12.3 fL [facility] ([place]) RBC 4.61 3.90 - 5.20 M/cumm [facility] MCV 91.3 81.3 - 96.4 fL [facility] ([place]) MCH 30.8 27.1 - 33.3 pg [facility] MCHC 33.7 32.3 - 35.7 g/dL [facility] RDW CV 13.2 11.1 - 14.9 % [facility] RDW SD 44.6 35.7 - 48.1 fL [facility] NRBC abs 0.00 0.00 - 0.01 K/cumm [facility] ([facility] Blood 06/30/2024 3:24 AM [facility] 06/30/2024 4:54 AM [facility] us Peggy Munoz MD LAB BLOOD ORDERABLES Final Resul t [facility] ([place]) 1 [facility] [place] [address] * aPTT (06/30/2024 3:24 AM [facility]) aPTT 33 28 - 38 sec [facility] ([place]) Comment: Interpretive Data Heparin therapeutic range: 66.0 - 100.0 seconds. Range based on correlation with therapeutic heparin activity range of 0.3 - 0.7 Units/mL. Current interpretive data was last revised on 2023. Blood 06/30/2024 3:24 AM [facility] 06/30/2024 4:53 AM [facility] Mirta Geronimo MD LAB BLOOD ORDERABLES Final Re sult Performing Organization Address City/[facility]/ZIP Co de Phone Number [facility] ([place]) 1 [facility] [place] [address] * Protime-INR (06/30/2024 3:24 AM [facility]) PT 11.6 9.7 - 13.0 sec [facility] ([place]) INR 1.07 0.90 - 1.20 [facility] ([place]) Comment: Interpretive data Oral anticoagulant therapeutic ranges: Venous thromboembolism prophylaxis or treatment: 2.0-3.0 CARDIOLOGY Standard range: 2.0-3.0 High-intensity range: 2.5-3.5 Refer to indication-specific guidelines for appropriate target ranges for prosthetic heart valve replacement. Current interpretive data was last revised on 2019. Blood 06/30/2024 3:24 AM [facility] 06/30/2024 4:53 AM [facility] us Peggy Munoz MD LAB BLOOD ORDERABLES Final Resul t Performing Organization Address City/[facility] Co de Phone Number [facility] ([place]) 1 [facility] [place] [address] * Basic metabolic panel (06/30/2024 3:24 AM [facility]) Sodium 137 135 - 145 mmol/L Potassium, pl 3.8 3.3 - 4.9 mmol/L [facility] ([place]) Chloride 103 97 - 110 mmol/L [facility] ([place]) CO2 24 22 - 32 mmol/L [facility] ([place]) Anion gap 11 2 - 15 mmol/L [facility] ([place]) BUN 11 6 - 25 mg/dL [facility] ([place]) Creatinine 0.83 0.60 - 1.10 mg/dL [facility] ([place]) Glucose 89 70 - 199 mg/dL [facility] ([place]) Comment: Interpretive Data Fasting glucose [...] [facility] ([place]) Blood 06/30/2024 3:24 AM [facility] 06/30/2024 4:54 AM [facility] us Peggy Munoz MD LAB BLOOD ORDERABLES Final Resul t [facility] ([place]) 1 [facility] [place] [address] * ECG 12 lead (06/30/2024 3:10 AM [facility]) 06/30/2024 3:10 AM [facility] Narrative [facility] - 06/30/2024 8:36 AM [facility] Vent Rate: 63 bpm RR Interval: 952 msec DE Interval: 182 msec QRS Duration: 81 msec QT Interval: 438 msec QTC Interval: 444 msec P-R-T Tyro: 61 - 43 - 35 degrees IMPRESSION: SINUS RHYTHM NONSPECIFIC T-WAVE ABNORMALITY BORDERLINE ECG Compared to prior EKG, heart rate has decreased Electronically Signed By: Carmine Hernandez MD us Guerrero Barnes MD ECG ORDERABLES Final Result Performing Organization Address City/[facility]/ZIP Co de Phone Number [facility] [employer] [facility] * COVID-19 Coronavirus RNA Nasopharyngeal (06/29/2024 12:06 PM [facility]) COVID-19 RNA Negative Negative Nasopharyngeal 06/29/2024 12 :06 PM [facility] 06/29/2024 12:10 PM [facility] Narrative [facility] ([place]) - 06/29/2024 12:43 PM [facility] Is the patient experiencing any symptoms consistent with COVID (eg. Fever, cough, shortness of breath)?->No What is the reason for testing?->Screening for semi-private room placement ??Interpretive data: Testing performed by [facility]. ??This test is performed using the [employer] Xpert Xpress CoV-2 plus assay. This is a real-time RT-PCR test intended for the qualitative detection of nucleic acid from the SARS-CoV-2. This assay has been cleared by the [place] Food and Drug administration. The performance characteristics have been verified by [facility]. ??Results must be considered in the clinical context, and a negative result does not rule out infection. Interpretive data last revised 2024. us Henrietta Alfaro MD LAB MICROBIOLOGY - GENERA L ORDERABLES Final Result [facility] ([place]) 1 [facility] Department of Laboratories [place], [place] [id number] * eGFR (06/29/2024 5:52 AM [facility]) eGFR >90 >=60 mL/min/1. 73 m2 Comment: [...] last reviewed 2021. Blood 06/29/2024 5:52 AM [facility] 06/29/2024 5:55 AM [facility] us Gretchen Lal MD LAB BLOOD ORDERABLES Fin al Result [facility] ([place]) 1 [facility] Department [place] [address] * (ABNORMAL) Lipid panel (06/29/2024 5:52 AM [facility]) Cholesterol 199 30 - 199 mg/dL Comment: [...] 2018. Triglycerides 102 <=149 mg/dL [facility] ([place]) Comment: Interpretive Data Ages < or = [...] BHAKTI [facility] ([place]) Blood 06/29/2024 5:52 AM [facility] 06/29/2024 5:55 AM [facility] us Gretchen Lal MD LAB BLOOD ORDERABLES Fin al Result [facility] ([place]) 1 [facility] Department [place] [address] * (ABNORMAL) Basic metabolic panel (06/29/2024 5:52 AM [facility]) Sodium 135 135 - 145 mmol/L Potassium, pl 4.5 3.3 - 4.9 mmol/L [facility] ([place]) Comment:Moderately Hemolyzed Specimen. Results may be affected. Chloride 104 97 - 110 mmol/L [facility] ([place]) CO2 20(L) 22 - 32 mmol/L [facility] ([place]) Anion gap 11 2 - 15 mmol/L [facility] ([place]) BUN 7 6 - 25 mg/dL [facility] ([place]) Creatinine 0.69 0.60 - 1.10 mg/dL [facility] ([place]) Glucose 93 70 - 199 mg/dL [facility] ([place]) Comment: Interpretive Data Fasting glucose >/= [...] 9.0 8.5 - 10.3 mg/dL [facility] ([place] Blood 06/29/2024 5:52 AM [facility] 06/29/2024 5:55 AM [facility] us Mirta Geronimo MD LAB BLOOD ORDERABLES Final Re sult [facility] ([place]) 1 [facility] [place] [address] * XR Chest PA Lateral 2 Views (06/29/2024 3:46 AM [facility]) Anatomical Region Laterality Modality Body, Chest N/A Computed Radiogr aphy 06/29/2024 4:14 AM [facility] Narrative 06/29/2024 4:17 AM [facility] EXAM DESCRIPTION: ?? XR CHEST PA LATERAL [...] AM T: ??06/29/2024 4:17 AM Report ID: [id number] Reading Location: ??[id number] Procedure Note Sammi José MD - 06/29/2024 [...] Sammi José M.D. SN: SN Report ID: [id number] Reading Location: [id number] Peggy Munoz MD IMG XR PROCEDURES Final Result * Troponin T high-sensitivity series (baseline, 2hr, 4hr, 6hr) (06/29/2024 3:36 AM [facility]) Trop T hs <6 <=14 ng/L Comment: Interpretive Data For further hscTnT resources including the diagnostic algorithm and an aid in interpretation, copy and paste this link: [email or web address].testcatalog.org/show/[email or web address] Current Interpretive Data last revised 2020. Blood 06/29/2024 3:36 AM [facility] 06/29/2024 3:38 AM [facility] us Peggy Munoz MD LAB BLOOD ORDERABLES Final Resul t [facility] ([place]) 1 [facility] Department of Laboratories [place], [place] [id number] * eGFR (06/29/2024 3:36 AM [facility]) eGFR >90 >=60 mL/min/1. 73 m2 Comment: [...] last reviewed 2021. Blood 06/29/2024 3:36 AM [facility] 06/29/2024 3:38 AM [facility] us Peggy Munoz MD LAB BLOOD ORDERABLES Final Resul t [facility] ([place]) 1 [facility] [place] [address] * Differential, auto (06/29/2024 3:36 AM [facility]) Neutrophil abs 4.5 1.5 - 6.5 K/cumm Imm gran abs 0.0 0.0 - 0.1 K/cumm [facility] ([place]) Lymphocyte abs 1.4 0.8 - 3.3 K/cumm [facility] ([place]) Monocyte abs 0.7 0.2 - 0.8 K/cumm [facility] ([place]) Eosinophil abs 0.2 0.0 - 0.5 K/cumm [facility] ([place]) Basophil abs 0.1 0.0 - 0.1 K/cumm [...] revised on 2017. Blood 06/29/2024 3:36 AM [facility] 06/29/2024 3:38 AM [facility] us Peggy Munoz MD LAB BLOOD ORDERABLES Final Resul t Performing Organization Address City/[facility] Co de Phone Number [facility] ([place]) 1 [facility] [place] [address] * CBC with auto differential (06/29/2024 3:36 AM [facility]) WBC 6.9 3.8 - 9.9 K/cumm Hgb [...] [facility] ([place]) Blood 06/29/2024 3:36 AM [facility] 06/29/2024 3:38 AM [facility] us Peggy Munoz MD LAB BLOOD ORDERABLES Final Resul t Performing Organization Address City/[facility] Co de Phone Number [facility] ([place]) 1 [facility] [place] [address] * D-dimer, quantitative (06/29/2024 3:36 AM [facility]) D-Dimer 423 <=499 ng/mL FEU [facility] ([place]) Comment: Interpretive data FDA approved the [...] 68, VTE cut-off 680 ng/ml FEU. References; Del BARBER et al. Brit Med J. 2013;346:f2492. Casimiro et al. Annals Int Med. 2015;163:701-11. Current interpretive data was last revised on 2019. Blood 06/29/2024 3:36 AM [facility] 06/29/2024 5:45 AM [facility] us Peggy Munoz MD LAB BLOOD ORDERABLES Final Resul t Performing Organization Address [facility] Co de Phone Number [facility] ([place]) 1 [facility] [place] [address] * (ABNORMAL) Comprehensive metabolic panel (06/29/2024 3:36 AM [facility]) Sodium 138 135 - 145 mmol/L Potassium, pl 3.9 3.3 - 4.9 mmol/L [facility] ([place]) Chloride 108 97 - 110 mmol/L [facility] ([place]) CO2 20(L) 22 - 32 mmol/L [facility] ([place]) Anion gap 10 2 - 15 mmol/L [facility] ([place]) BUN 8 6 - 25 mg/dL [facility] ([place]) Creatinine 0.76 0.60 - 1.10 [...] Slightly Hemolyzed Specimen Blood 06/29/2024 3:36 AM [facility] 06/29/2024 3:38 AM [facility] us Peggy Munoz MD LAB BLOOD ORDERABLES Final Resul t [facility] ([place] 1 [facility] [place] [address] * ECG 12 lead (06/29/2024 3:04 AM [facility]) 06/29/2024 3:04 AM [facility] Narrative [facility] - 06/29/2024 8:41 AM [facility] Vent Rate: 93 bpm RR Interval: 643 msec DE Interval: 153 msec QRS Duration: 86 msec QT Interval: 325 msec QTC Interval: 376 msec P-R-T Tyro: 77 - 69 - 4 degrees IMPRESSION: SINUS RHYTHM NONSPECIFIC ST \T\ T-WAVE ABNORMALITY No significant change from prior EKG Electronically Signed By: Dr Guerrero Barnes us Peggy Munoz MD ECG ORDERABLES Final Result Performing Organization Address City/[facility] Co de Phone Number [facility] * eGFR (06/24/2024 9:17 AM [facility]) eGFR >90 >=60 mL/min/1. 73 m2 Comment: [...] last reviewed 2021. Blood 06/24/2024 9:17 AM [facility] 06/24/2024 9:37 AM [facility] us Prasad Lopez MD LAB BLOOD ORDERABLES Final Res ult Performing Organization Address City/[facility]/ZIP Co de Phone Number [facility] ([place]) 1 [facility] [place] [address] * Differential, auto (06/24/2024 9:17 AM [facility]) Neutrophil abs 3.4 1.5 - 6.5 K/cumm [...] revised on 2017. Blood 06/24/2024 9:17 AM [facility] 06/24/2024 9:37 AM [facility] us Prasad Lopez MD LAB BLOOD ORDERABLES Final Res ult [facility] ([place] 1 [facility] [place] [address] * CBC with auto differential (06/24/2024 9:17 AM [facility]) WBC 6.6 3.8 - 9.9 K/cumm Hgb 14.7 11.9 - 15.5 g/dL [facility] ([place]) Hct 44.6 35.6 - 45.5 % [facility] ([place]) Plt 261 150 - 400 K/cumm [facility] ([place]) MPV 9.9 9.1 - 12.3 fL [facility] ([place]) RBC 4.84 3.90 - 5.20 M/cumm [facility] ([facility]) MCV 92.1 81.3 - 96.4 fL [facility] ([place]) MCH 30.4 27.1 - 33.3 pg [facility] ([place]) MCHC 33.0 32.3 - 35.7 g/dL [facility] ([place]) RDW CV 13.1 11.1 - 14.9 % [facility] ([place]) RDW SD 44.2 35.7 - 48.1 fL [facility] ([place]) NRBC abs 0.00 0.00 - 0.01 K/cumm [facility] ([place]) Blood 06/24/2024 9:17 AM [facility] 06/24/2024 9:37 AM [facility] us Prasad Lopez MD LAB BLOOD ORDERABLES Final Res ult [facility] ([place]) 1 [facility] [place] [employer] [address] * Basic metabolic panel (06/24/2024 9:17 AM [facility]) Sodium 140 135 - 145 mmol/L Potassium, pl 4.3 3.3 - 4.9 mmol/L [facility] ([place]) Chloride 105 97 - 110 mmol/L [facility] ([place]) CO2 24 22 - 32 mmol/L [facility] ([place]) Anion gap 11 2 - 15 mmol/L [facility] ([place]) BUN 6 6 - 25 mg/dL [facility] ([place]) Creatinine 0.80 0.60 - 1.10 mg/dL [facility] ([place]) Glucose 91 70 - 199 mg/dL [facility] ([place]) Comment: Interpretive Data Fasting glucose [...] 2022. Calcium 9.1 8.5 - 10.3 mg/dL [facility] ([place]) Blood 06/24/2024 9:17 AM [facility] 06/24/2024 9:37 AM [facility] us Prasad Lopez MD LAB BLOOD ORDERABLES Final Res ult [facility] ([place] 1 [facility] [place] [address] * NM MPI SPECT (Rest and/or Stress) Multiple Studies (06/19/2024 10:45 AM [facility]) Anatomical Region Laterality Modality Body N/A Electrocardiogra phy Narrative 06/21/2024 9:20 PM [facility] Table formatting from the original result was not included. [facility] [address] [address] Nuclear MPI Pharmaceutical Study Patient Name: Yazmin [...] W DOPPLER/CF WO CONTRAST (06/19/2024 8:17 AM [facility]) LV EF 62 % CARDIOREPORT Anatomical Region Laterality Modality Ultrasound 06/19/2024 7:30 AM [facility] Narrative 06/19/2024 6:17 PM [facility] Patient name: Yazmin Etienne Date of test: 06/19/2024 Type of test: TTE w/Doppler [facility] #: 0 Date of : 1980 (F) Addiction Psychiatrist: Trevor Betts RDCS Referring Physician: PRASAD LOPEZ MD Contrast Agent: Contrast Administered by: Supervised/Interpreted by: Prasad Lopez MD Diagnosis: Location: [facility] Reason for test: CP, CAD MV Structure: [...] 2=Hypo 3=Akinetic 4=Dyskin./Aneurysm 0=Not visualized) Parasternal Long Tyro:MAS=1 BAS=1 MIL=1 WILLIAM=1 Parasternal Short Tyro:MAS=1 MIS=1 FL=1 MIL=1 MAL=1 MA=1 Apical 4 Chambers:=1 MIS=1 BIS=1 BAL=1 MAL=1 AL=1 AC=1 Apical 2 Chambers:AI=1 FL=1 BI=1 BA=1 MA=1 AA=1 AC=1 LV Global [...] MD By signing this report, the attending recreational director certifies that he or she has personally supervised and interpreted the echocardiogram and has reviewed and or edited and agrees with the written comments contained within the report. Procedure Note Prasad Lopez MD - 06/19/2024 Patient name: Yazmin Etienne Date of test: 06/19/2024 Type of test: TTE /Doppler [facility] #: 0 Date of : 1980 (F) Addiction Psychiatrist: rTevor Betts [facility] Referring Physician: PRASAD LOPEZ MD Contrast Agent: Contrast Administered by: Supervised/Interpreted by: Prasad Lopez MD Diagnosis: Location: [facility] Reason for test: CP, CAD MV Structure: [...] 2=Hypo 3=Akinetic 4=Dyskin./Aneurysm 0=Not visualized) Parasternal Long Tyro:MAS=1 BAS=1 MIL=1 WILLIAM=1 Parasternal Short Tyro:MAS=1 MIS=1 FL=1 MIL=1 MAL=1 MA=1 Apical 4 Chambers:=1 MIS=1 BIS=1 BAL=1 MAL=1 AL=1 AC=1 Apical 2 Chambers:AI=1 FL=1 BI=1 BA=1 MA=1 AA=1 AC=1 LV Global [...] MD By signing this report, the attending recreational director certifies that he or she has personally supervised and interpreted the echocardiogram and has reviewed and or edited and agrees with the written comments contained within the report. 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
--- OUTSIDE RECORDS SUMMARY | 2024-08-11 15:52 | XMS_ITS | CONTINUITY OF CARE DOCUMENT ---
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 Name Role Phone Ijeoma Morataya MD Unavailable NICANOR MIKE MD Unavailable NICANOR MIKE MD Unavailable PROBLEMS Condition Status [...] hx of Pulmonary embolism active Annika gastelum [employer]INE [employer] OPERATOR Palpitations active Annika Garcia [employer]INE [employer]ANT OPERATOR ENCOUNTERS Date Type Provider Location Encounter Diag nosis - In-person encounter Office Visit Ijeoma Morataya MD [facility] - In-person encounter Office Visit Ijeoma Morataya MD [facility] - In-person encounter Office Visit Ijeoma Morataya MD [facility] hx of Pulmonary embolismPalpitations - In-person encounter Office Visit Ijeoma Morataya MD [facility] - In-person encounter Office Visit Ijeoma Morataya MD [facility] SnoringHypertension - In-person encounter Office Visit Ijeoma Morataya MD [facility] - In-person encounter Office Visit Ijeoma Morataya MD [facility] - In-person encounter Office Visit Ijeoma Morataya MD [facility] - In-person encounter Office Visit Ijeoma Morataya MD [facility] - In-person encounter Office Visit Ijeoma Morataya MD [facility] - In-person encounter Office Visit Ijeoma Morataya MD [facility] - In-person encounter Office Visit Ijeoma Morataya MD [facility] - In-person encounter Office Visit Ijeoma Morataya MD [facility] - In-person encounter Office Visit Ijeoma Morataya MD [facility] - In-person encounter Office Visit Ijeoma Morataya MD [facility] Family History of Hypertension:SnoringHyperlipidemi aCOPDCardiomyopathy - In-person encounter Office Visit Ijeoma Morataya MD [facility] Family History Coronary Heart Disease female [...] lder height E&M 65 [in_i] Ida Gruenenfe [facility] Body Mass Index (Ratio) 25.96 kg/m2 Simba Ahmedzai blood pressure, diastolic 74 mm[Hg] Annalee nkLogic blood pressure, systolic 105 mm[Hg] [facility] oxygen saturation, oximetry 98 % Yoksata Lennox pulse rate 78 /min Yokasta Hartleyma n blood pressure, diastolic 74 mm[Hg] [facility] ephan[facility] Lennox blood pressure, systolic 105 mm[Hg] Long phanie Lennox blood pressure, cuff size small [facility] ephan[facility] Lennox respiratory rate E&M 16 /min Mike ie Lennox weight E&M 156 [lb_av] Yokasta Lohma n height E&M 65 [in_i] Yokasta Lohma n blood pressure, diastolic 79 mm[Hg] Annalee nkLogic blood pressure, systolic 110 mm[Hg] [facility] Body Mass Index (Ratio) 26.29 kg/m2 Simba [...] Mass Index (Ratio) 25.62 kg/m2 [place] blood pressure, cuff size large Ke rri Gruenenfelder blood pressure, diastolic 68 mm[Hg] Ke rri Gruenenfelder blood pressure, systolic 111 mm[Hg] Ker ri Gruenenfelder oxygen saturation, oximetry 96 % Ida Gruenenfelder respiratory rate E&M 14 /min Ida G ruenenfelder pulse rate 91 /min Ida Gruenenfe er weight E&M 154 [lb_av] Ida Gruenenfe er height E&M 65 [in_i] Ida Gruenenfe [facility] Body Mass Index (Ratio) 25.29 kg/m2 [...] blood pressure, diastolic 70 mm[Hg] Kr isty Carnegie blood pressure, systolic 110 mm[Hg] Kri stazul Carnegie oxygen saturation, oximetry 98 % Henrietta Jaclyn respiratory rate E&M 17 /min Henrietta Jaclyn pulse rate 92 /min Henrietta Carnegie weight E&M 167 [lb_av] Henrietta Carnegie height E&M 65 [in_i] Henrietta Carnegie Body Mass Index (Ratio) 26.79 kg/m2 Jord [...] marzena Lewis oxygen saturation, oximetry 99 % [place] respiratory rate E&M 16 /min Jennifer Lewis pulse rate 75 /min Jennifer Lewis weight E&M 156 [lb_av] Jennifer Lewis height E&M 65 [in_i] Jennifer Lewis Body Mass Index (Ratio) 25.79 kg/m2 Juancarlos Morataya MD blood pressure, diastolic 70 mm[Hg] [facility] blood pressure, systolic 100 mm[Hg] Mehrdad ivan Lewis oxygen saturation, oximetry 95 % respiratory rate E&M 16 /min [place] pulse rate 94 /min weight E&M [...] 3.5-5.2 1 sodium, serum 140 mmol/L [employer] 171-238 1431/08/2 1 urea nitrogen/creatinine ratio, serum 12 [employer]Log[employer] [...] High 2 cholesterol, serum 193 mg/dL [employer] [phone]/06/1 2 alanine aminotransferase (SGPT), serum 6 1/L [...] 3.5-5.2 2 sodium, serum 142 mmol/L [employer] [phone]/06/1 2 urea nitrogen/creatinine ratio, serum 9 [employer] [...] High 5 platelet count 272 X10E3/UL [employer] [phone]/12/0 5 red blood cell distribution width 12.9 [...] 5 aspartate aminotransferase (SGOT), serum 12 1/L [facility] 0-40 5 alkaline phosphatase, serum 106 1/L [...] 3.5-5.2 5 sodium, serum 140 mmol/L [employer] [phone]/12/0 5 urea nitrogen/creatinine ratio, serum 7 [employer]Logic [...] Estab. 8 platelet count 262 X10E3/UL [employer] [phone]/04/1 8 red blood cell distribution width 12.1 [...] 3.5-5.2 6 sodium, serum 142 mmol/L [employer] [phone]/11/1 6 urea nitrogen/creatinine ratio, serum 6 [employer] [...] 1/4 Ida Reneehector cigarette use yes Ida Renee hector [...] years as a smoker 18 a Henrietta Carnegie smoking history, tot al pack/day 07/22 Henrietta Carnegie cigarette use yes Henrietta Carnegie smoking status Current every day smoker K [...] cess ation, patient education and counseling yes Jennifer Lewis number of years as a smoker 18 a Jennifer Lewis smoking history, tot al pack/day 1 [place] cigarette use yes Jennifer Lewis smoking [...] Augie FAMILY HISTORY Family Member Condition Mother [place] female <65 Mother Family History of Hy pertension: Mother Family History Coron lyric Heart Disease female < 65: INSURANCE PROVIDERS Payer name Policy type / Coverage type [place] [employer] party ID [place] MED[place] Medicaid [id number] ADVANCE DIRECTIVES Name Date DISCUSSED - NO DECISION MADE TREATMENT PLAN Date Name Performer [id number],C,w ill check chest x ray for further evaluation, she has cough now [facility] [id number],C, E cho showed normal EF. [facility] [id number],C, E cho EF nl from recent echo [facility] [id number],C, B P today: 130/80 P rior BP: 105/74 (09/18/2022) Labs Reviewed: C reat: 0.78 (03/08/2021) C hol: 250 (03/08/2021) HDL: 40 (03/08/2021) [facility] [id number],C,E cho showed normal EF. She was not able to undergo exercise stress due to intolerance to exertion. Her sxs are stemming from her pulmonary process, will check PFTs [facility] [id number],C, H er updated medication list for this problem includes: Atorvastatin 80 Mg Tablet (Atorvastatin) ..... 1 tablet once a day Zetia 10 Mg Tablet (Ezetimibe) ..... 1 tablet once a day [facility] [id number],C,P atient was advised to stop smoking. [facility] [id number],C, C ontinues to smoke. Counseled on cessation. Continues inhaler as needed. S he has significant SOB on minimal exertion, attributable to her lung process. W ill check PFTs [facility] [id number],C,Echo EF nl fr om recent echo [facility] [id number],C, B P today: 105/74 P rior BP: 110/79 (08/07/2022) Labs Reviewed: C reat: 0.78 (03/08/2021) C hol: 250 (03/08/2021) HDL: 40 (03/08/2021) Simba Rodrigez [id number],C,w ill check VQ scan, stress test, ECHO, 48hr holter, labs, Annika Garcia ANANTH [id number],C,C HOL: 250 (03/08/2021) HDL: 40 (03/08/2021) Her updated medication list for this problem includes: Atorvastatin 80 Mg Tablet (Atorvastatin) ..... 1 tablet once a day Zetia 10 Mg Tablet (Ezetimibe) ..... 1 tablet once a day will check fasting lipid panel Annika Carloshector [place]TH [id number],C, B P today: 110/79 P rior BP: 111/68 (01/02/2022) Labs Reviewed: C reat: 0.78 (03/08/2021) C hol: 250 (03/08/2021) HDL: 40 (03/08/2021) Annika Carloshector [place] [id number],C,w il check 48hr monitor, echo, routine stress test, sleep study, VQ scan Annika Carloshector [place] [id number],C,h x of pe. pt reports similar symptoms of SOB, chest pain radiating to L arm/side of body. will check VQ scan. echo, d-dimer, pt/ptt. Annika Garcia NP [id number],S,e ncouraged strict cessation of cigarettes. Agustina Franks NP [id number],S, H er updated medication list for this problem includes: Atorvastatin 80 Mg Tablet (Atorvastatin) ..... 1 tablet once a day Zetia 10 Mg Tablet (Ezetimibe) ..... 1 tablet once a day Agustina Franks NP [id number],S,E cho 12/07 with EF 55%. Wll repeat in 2 years. 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 Counseled on cessation. Continues inhaler as needed. Repeat PFTs in one year. Agustina Franks NP [id number],C, R eports restless sleep recently. Last sleep study 2019 was negative for SARAHY. Will repeat Samy Nash [id number],C, d aily smoker [facility] S VIOLETTE ENCOURAGED TO STOP SMOKING; SMOKING CESSATION TECHNIQUES DISCUSSED. Samy Nash [id number],C, H er updated medication list for this problem includes: Atorvastatin 80 Mg Tablet (Atorvastatin) ..... 1 tablet once a day Zetia 10 Mg Tablet (Ezetimibe) ..... 1 tablet once a day Samy Nash [id number],C, N o recurrence Samy Nash [id number],C, O rders: F VC - 34966 (75410) F RC - 79653 (87565) D LCO - 42108 (13359) Samy Nash [id number],C, B P fluctuating since last seen. Reviewed sodium restriction and recommended she get an automatic machine, as the wrist device is likely giving inaccurate readings. Sammy repeat echo. BP today: 110/60 P rior BP: 104/60 (03/04/2021) Labs Reviewed: C reat: 0.78 (03/08/2021) C hol: 250 (03/08/2021) HDL: 40 (03/08/2021) Samy Nash [id number],C, O rders: C omplete Echo (CPT-84970) echo 12/2019 CONCLUSIONS: 1 . Normal left [...] . Normal aortic root size. Samy Nash [id number],Nao, S VIOLETTE ENCOURAGED TO STOP SMOKING; SMOKING [...] when compared to previous study. Samy Nash [id number],S, O rders: T obacco cessation counseling, >10minutes (69878) [facility] [place] ENCOURAGED TO STOP SMOKING; SMOKING CESSATION TECHNIQUES DISCUSSED. Samy Nash [id number],B, L DL 135 12/2020. L DL 169 08/2020 h as been on 80 lipitor and zetia 10 once daily Orders: L IPID PANEL (2632) Her updated medication list for this problem includes: Atorvastatin 80 Mg Tablet (Atorvastatin) ..... 1 tablet once a day Zetia 10 Mg Tablet (Ezetimibe) ..... 1 tablet once a day Samy Nash [id number],B, O rders: C omplete Echo (CPT-19056) echo 12/2019 CONCLUSIONS: 1 . Normal left [...] . Normal aortic root size. Samy Nash [id number],W, O rders: S tress Routine (CPT-24021) C omplete Echo (CPT-34231) C XR- PA/Lat (CPT-19411) STRONGLY ENCOURAGED TO STOP SMOKING; SMOKING CESSATION TECHNIQUES DISCUSSED. Samy Nash [id number],B, O rders: C OMPREHENSIVE METABOLIC PANEL, W/EGFR (47506) 9 9214 MOD 30-39min (CPT-13194) F VC - 60944 (72839) F RC - 74656 (70543) D LCO - 19895 (74717) Samy Nash [id number],C, d aily smoker formerly [facility] S VIOLETTE ENCOURAGED TO STOP SMOKING; SMOKING CESSATION TECHNIQUES DISCUSSED. Orders: T obacco cessation counseling, 3-10minutes (72016) Samy Nash [id number],W, L DL 169 08/2020 h as been on 80 lipitor and zetia 10 once daily Orders: L IPID PANEL (8606) Her updated medication list for this problem includes: Zetia 10 Mg Oral Tablet (Ezetimibe) ..... One tab. daily, in addition to statin Atorvastatin Calcium 80 Mg Oral Tablet (Atorvastatin calcium) ..... One tab daily. increased dose. Samy Nash [id number],S, S VIOLETTE ENCOURAGED TO STOP SMOKING; SMOKING CESSATION TECHNIQUES DISCUSSED. Her updated medication list for this problem includes: Airduo Respiclick 232/14 232-14 Mcg/act Inh Aepb (Fluticasone-salmeterol) ..... 1 puff twice daily Albuterol Sulfate (2.5 Mg/3ml) 0.083% Inhalation Nebulization Solution (Albuterol sulfate) ..... One puff three times a day O rders: F VC - 04323 (76765) F RC - 15924 (96248) D LCO - 83169 (78646) PFTS 12/2019 Conclusions: Although there is airway obstruction and a diffusion defect suggesting emphysema, the absence of overinflation is inconsistent with that diagnosis. Order Note: Order Note: Pulmonary Function Diagnosis: Order Note: Minimal Obstructive Airways Disease Order Note: Moderate Diffusion Defect Order Note: Minimal changes in FEV1 when compared to previous study. Samy Nash [id number],B, O rders: C omplete Echo (CPT-08586) echo 12/2019 CONCLUSIONS: 1 . Normal left [...] for further evaluation, she has cough now [facility] Electrophysiology: E cho showed normal EF. [facility] Electrophysiology: E cho EF nl from recent echo [facility] Electrophysiology: B P today: 130/80 P rior BP: 105/74 (09/18/2022) Labs Reviewed: C reat: 0.78 (03/08/2021) C hol: 250 (03/08/2021) HDL: 40 (03/08/2021) [facility] Cardiology:Echo show ed normal EF. She was not able to undergo exercise stress due to intolerance to exertion. Her sxs are stemming from her pulmonary process, will check PFTs [facility] Cardiology: H er updated medication list for this problem includes: Atorvastatin 80 Mg Tablet (Atorvastatin) ..... 1 tablet once a day Zetia 10 Mg Tablet (Ezetimibe) ..... 1 tablet once a day [facility] Cardiology:Patient w as advised to stop smoking. [facility] Cardiology: C ontinues to smoke. Counseled on cessation. Continues inhaler as needed. S he has significant SOB on minimal exertion, attributable to her lung process. W ill check PFTs [facility] Cardiology:Echo EF nl from recen t echo [facility] Cardiology: B P today: 105/74 P rior BP: 110/79 (08/07/2022) Labs Reviewed: C reat: 0.78 (03/08/2021) C hol: 250 (03/08/2021) HDL: 40 (03/08/2021) Simba [facility] Electrophysiology:wi ll check VQ scan, stress test, [...] stress test, sleep study, VQ scan Annika Garcia NP Electrophysiology:hx of pe. pt reports similar symptoms of SOB, chest pain radiating to L arm/side of body. will check VQ scan. echo, d-dimer, pt/ptt. Annika Mgbasil CHLORINE PLANT OPERATOR Electrophysiology:en couraged strict cessation of cigarettes. Agustina [...] repeat Samy Saad Electrophysiology: d aily [facility] S TRONGLY ENCOURAGED TO STOP SMOKING; SMOKING CESSATION TECHNIQUES DISCUSSED. Samy Nash Electrophysiology: H er updated medication list for this problem includes: Atorvastatin 80 Mg Tablet (Atorvastatin) ..... 1 tablet once a day Zetia 10 Mg Tablet (Ezetimibe) ..... 1 tablet once a day [place] Saad Electrophysiology: N o recurrence Srinathamber Saad Electrophysiology: O rders: F VC - 80364 (11236) F RC - 39638 (35819) D LCO - 39610 (33440) [place] Saad Electrophysiology: B P fluctuating since last seen. Reviewed sodium restriction and recommended she get an automatic machine, as the wrist device is likely giving inaccurate readings. Sammy repeat echo. BP today: 110/60 P rior BP: 104/60 (03/04/2021) Labs Reviewed: C reat: 0.78 (03/08/2021) C hol: 250 (03/08/2021) HDL: 40 (03/08/2021) Samy Nash Electrophysiology: O rders: C omplete Echo (CPT-65186) echo 12/2019 CONCLUSIONS: 1 . Normal left [...] in FEV1 when compared to previous study. [facility] 13 : O rders: T obacco cessation counseling, >10minutes (31956) daily smoker formerly [facility] S TRONGLY ENCOURAGED TO STOP SMOKING; SMOKING CESSATION TECHNIQUES DISCUSSED. [facility]iology 13 : L DL 135 12/2020. L DL 169 08/2020 h as been on 80 lipitor and zetia 10 once daily Orders: L IPID PANEL (0692) Her updated medication list for this problem includes: Atorvastatin 80 Mg Tablet (Atorvastatin) ..... 1 tablet once a day Zetia 10 Mg Tablet (Ezetimibe) ..... 1 tablet once a day Samy Saad Electrophysiology 13 : O rders: C omplete Echo (CPT-45277) echo 12/2019 CONCLUSIONS: 1 . Normal left [...] 13 : O rders: S tress Routine (CPT-90373) C omplete Echo (CPT-13814) C XR- PA/Lat (CPT-51470) STRONGLY ENCOURAGED TO STOP SMOKING; SMOKING CESSATION TECHNIQUES DISCUSSED. Samy Nash Electrophysiology-pl ease bill EKG and fu [address] Durant: O rders: C OMPREHENSIVE METABOLIC PANEL, W/EGFR (81858) 9 9214 MOD 30-39min (CPT-23956) F VC - 27760 (26860) F RC - 60479 (57898) D LCO - 66107 (50976) Samy Nash Electrophysiology-pl ease bill EKG and fu [address] Durant: d aily smoker [place] [facility] S VIOLETTE ENCOURAGED TO STOP SMOKING; SMOKING CESSATION TECHNIQUES DISCUSSED. Orders: T obacco cessation counseling, 3-10minutes (47373) Samy Nash Electrophysiology-pl ease bill EKG and fu [address] Durant: L DL 169 08/2020 h as been on 80 lipitor and zetia 10 once daily Orders: L IPID PANEL (0478) Her updated medication list for this problem [...] times a day Orders: F VC - 58537 (91526) F RC - 80219 (51279) D LCO - 49060 (39595) PFTS 12/2019 Conclusions: Although there is airway obstruction and a diffusion defect suggesting emphysema, the absence of overinflation is inconsistent with that diagnosis. Order Note: Order Note: Pulmonary Function Diagnosis: Order Note: Minimal Obstructive Airways Disease Order Note: Moderate Diffusion Defect Order Note: Minimal changes in FEV1 when compared to previous study. Samy Saad Electrophysiology-[facility] bill EKG and fu [address] Durant: O rders: C omplete Echo (CPT-08402) echo 12/2019 CONCLUSIONS: 1 . Normal left [...] effusion. 5 . Normal aortic root size. [facility] Card[facility] done n:no recurrnece n eg stress 09/2018 [facility] Cardiology done n: S TRONGLY ENCOURAGED TO STOP SMOKING; SMOKING CESSATION TECHNIQUES DISCUSSED. [facility] Cardiology done n: H er updated medication list for this problem includes: Zetia 10 Mg Oral Tablet (Ezetimibe) ..... One tab. daily, in addition to statin Atorvastatin Calcium 80 Mg Oral Tablet (Atorvastatin calcium) ..... One tab daily. increased dose. Orders: L IPID PANEL (2250) H EPATIC FUNCTION PANEL (07027) Jimamber Saad Cardiology done n: l ast EF [...] root size Orders: 9 12 Minor 10-19min (CPT-50489) C omplete Echo (CPT-22898) Jimtiffanyamber Nash Cardiology done n: O rders: F VC - 50909 (51208) F RC - 67449 (50927) D LCO - 25465 (39145) Her updated medication list for this problem [...] 12/2019 Orders: C OMPREHENSIVE METABOLIC PANEL, W/EGFR (83623) C BC (H/H, RBC, INDICES, WBC, PLT) (1759) T SH, free T4, total T3 (7444) T obacco cessation counseling > 10 minutes (CPT-60952) F VC - 56767 (54559) F RC - 38687 (01697) D LCO - 77369 (72380) S chedule Followup (*) Samy Nash Electrophysiology - :STRONGLY ENCOURAGED TO STOP SMOKING; SMOKING CESSATION TECHNIQUES DISCUSSED. P t notes that nicotine patches have not been effective in the past, likewise with nicotine gum. Had extensive discussion about hazards of tobacco smoking. Orders: T obacco cessation counseling > 10 minutes (CPT-05758) Samy Nash Electrophysiology - :last LDL 183 in 10/2019 i ncrease atorvastatin to 80mg one tab once daily r eviewed dietary guidelines with the patient. Orders: L IPID PANEL (6600) Her updated medication list for this problem [...] S chedule Followup (*) Samy Nash Cardiology [facility] Cardiology [facility] Cardiology [facility] Cardiology [facility] Electrophysiology [facility] Electrophysiology:ad vised to quit [facility] Electrophysiology [facility] Electrophysiology: H er updated medication list for this problem includes: Airduo Respiclick 232/14 232-14 Mcg/act Inh Aepb (Fluticasone-salmeterol) ..... 1 puff twice daily Albuterol Sulfate (2.5 Mg/3ml) 0.083% Inhalation Nebulization Solution (Albuterol sulfate) ..... One puff three times a day [facility] Electrophysiology: H er updated medication list for this problem includes: Atorvastatin Calcium 20 Mg Oral Tablet (Atorvastatin calcium) ..... Take one daily [facility] Electrophysiology [facility] Electrophysiology [facility] Electrophysiology [facility] Electrophysiology fo llow up :The Patient was [...] hypotension. Kavin Hughes Electrophysiology:advised to emma t [facility] Electrophysiology: O rders: 9 9213 LTD. Complex (CPT-97757) C omplete Echo (CPT-04461) [facility] Electrophysiology: O rders: 9 9213 LTD. Complex (CPT-93489) C omplete Echo (CPT-78437) [facility] Electrophysiology: O rders: 9 9213 LTD. Complex (CPT-04931) C omplete Echo (CPT-38328) [facility] Electrophysiology: H er updated medication list for this problem includes: Atorvastatin Calcium 20 Mg Oral Tablet (Atorvastatin calcium) ..... Take one daily [facility] Electrophysiology:pt continues to wheeze H er updated medication list for this problem includes: Airduo Respiclick 232/14 232-14 Mcg/act Inh Aepb (Fluticasone-salmeterol) ..... 1 puff twice daily Albuterol Sulfate (2.5 Mg/3ml) 0.083% Inhalation Nebulization Solution (Albuterol sulfate) ..... One puff three times a day Orders: 9 9213 LTD. Complex (CPT-20383) C omplete Echo (CPT-44433) Sae Mahmood Electrophysiology:Wi ll not put on coreg or cash inhibitor due to hypotension. Orders: E KG (CPT-95018) 9 9213 LTD. Complex (CPT-30442) C omplete Echo (CPT-77610) Sae Mahmood Electrophysiology: n o SARAHY on sleep study Ijeoma Morataya MD Electrophysiology: P atient smokes everyday. S TRONGLY ENCOURAGED TO STOP SMOKING; SMOKING CESSATION TECHNIQUES DISCUSSED. Ijeoma Morataya MD Electrophysiology: Zuleima maier CP today. [facility] visit on 10/14/18 for CP, r/o for [place]. Patient underwent nuclear stress test on 10/14/18, which was negative for ischemia, EF 54%. e cho today showed mild hypokinesis Orders: E KG (CPT-46556) C OMPREHENSIVE METABOLIC PANEL, W/EGFR (06780) 9 9214 MOD Complex (CPT-32068) Ijeoma Morataya MD Electrophysiology: P FTs 11/09/18 P ulmonary Function Diagnosis: M inimal Obstructive Airways Disease -Reversible M ild Diffusion Defect D LCO 67 Omar Hayward Electrophysiology: n o SARAHY on sleep study Omar Hayward Electrophysiology: P atient smokes everyday. S TRONGLY ENCOURAGED TO STOP SMOKING; SMOKING CESSATION TECHNIQUES DISCUSSED. Omar Hayward Electrophysiology: D livier CP today. [facility] visit on 10/14/18 for CP, r/o for [place]. Patient underwent nuclear stress test on 10/14/18, which was negative for ischemia, EF 54%. e cho today showed mild hypokinesis Omar Hayward Cardiology hospital follow up: P atient smokes everyday. S TRONGLY ENCOURAGED TO STOP SMOKING; SMOKING CESSATION TECHNIQUES DISCUSSED. Anupam Barkley Cardiology hospital follow up: Noa roque home sleep study. Orders: S leep Study Home (CPT-37955) 9 9205 HIGH Complex (CPT-12102) S chedule Followup (*) Anupam Barkley Cardiology hospital follow up: Noa roque PFTS. Orders: F VC - 84967 (18511) F RC - 55998 (40079) D LCO - 57412 (17952) 9 9205 HIGH Complex (CPT-08320) S chedule Followup (*) Anupam Barkley Cardiology hospital follow up: Zuleima maier CP today. [facility] visit on 10/14/18 for CP, r/o for [place]. Patient underwent nuclear stress test on 10/14/18, which was negative for ischemia, EF 54%. & #13;Check echo doppler to assess LV function. Orders: 9 9205 HIGH Complex (CPT-79751) S chedule Followup (*) Noa omplete Echo (CPT-81360) Anupam Barkley Date Name CXR- PA/Lat DLCO - 30948 FRC - 69995 FVC - 89927 MAGNESIUM PROTHROMBIN TIME WIT H INR Partial Thromboplast in Time, Activated D-DIMER, QUANTITATIV E IRON AND TOTAL IRON BINDING CAPACITY FERRITIN CBC (INCLUDES DIFF/P LT) LIPID PANEL TSH, free T4, total T3 PROBNP, N TERMINAL COMPREHENSIVE METABO LIC PANEL, W/EGFR Holter Monitor 48 hr Sleep Study Home Stress Routine Complete Echo NM, Lung Perfusion Holter Monitor 48 hr DLCO - 64456 FRC - 00015 FVC - 86071 Sleep Study Home Monitor - Telemetry (Mobile Cardiac) Complete Echo DLCO - 09916 FRC - 55688 FVC - 17156 T-4, FREE TSH, 3RD GENERATION HEPATIC FUNCTION TIERNEY EL LIPID PANEL TSH, free T4, total T3 COMPREHENSIVE METABO LIC PANEL, W/EGFR LIPID PANEL CXR- PA/Lat Complete Echo Stress Routine EKG DLCO - 87790 FRC - 91054 FVC - 68941 Complete Echo COMPREHENSIVE METABO LIC PANEL, W/EGFR LIPID PANEL Complete Echo DLCO - 66965 FRC - 53753 FVC - 00779 HEPATIC FUNCTION TIERNEY EL LIPID PANEL DLCO - 19413 FRC - 21529 FVC - 18084 TSH, free T4, total T3 CBC (H/H, RBC, INDIC ES, WBC, PLT) COMPREHENSIVE METABO LIC PANEL, W/EGFR LIPID PANEL EKG THYROID PANEL LIPID PANEL COMPREHENSIVE METABO LIC PANEL, W/EGFR CBC (INCLUDES DIFF/P LT) Complete Echo DLCO - 01233 FRC - 99533 FVC - 37335 LIPID PANEL COMPREHENSIVE METABO LIC PANEL, W/EGFR DLCO - 64260 FRC - 54755 FVC - 95722 6 minute walk test Complete Echo Complete Echo DLCO - 41440 FRC - 11359 FVC - 90184 Complete Echo LIPID PANEL COMPREHENSIVE METABO LIC PANEL, W/EGFR DLCO - 32463 FRC - 02163 FVC - 88694 Complete Echo Sleep Study Home DLCO - 01890 FRC - 71701 FVC - 77325 HISTORY OF PROCEDURES Procedure Date Procedure Name Provider Procedure Notes S tatus Spirometry Ijeoma prasad MD completed FVC / MVV with bronchodilator - 72213 Ijeoma Morataya MD completed Ambulatory Oximetry Ijeoma hoover MD completed FRC - 38281 Ijeoma prasad MD completed SpO2 w/o 6min walk/titration Ijeoma Morataya MD completed SVC - 52082 Ijeoma prasad MD completed DLCO - 58313 Ijeoma prasad MD completed EKG Ijeoma prasad MD completed EKG Ijeoma prasad MD completed EKG Ijeoma prasad MD completed Spirometry Ijeoma prasad MD completed FVC / MVV with bronchodilator - 47932 Ijeoma Morataya MD completed BLOOD COUNT HEMOGLOBIN Ijeoma norris MD completed FRC - 76336 Ijeoma prasad MD completed SpO2 w/o 6min walk/titration Ijeoma Morataya MD completed SVC - 10404 Ijeoma prasad MD completed DLCO - 33476 Ijeoma prasad MD completed EKG Ijeoma prasad MD completed EKG Ijeoma prasad MD completed EKG Ijeoma prasad MD completed EKG Ijeoma prasad MD completed Schedule Followup Ijeoma richardson MD 6 months completed EKG Ijeoma prasad MD completed FVC / MVV with bronchodilator and 6min walk/titration Ijeoma Morataya MD completed BLOOD COUNT HEMOGLOBIN Ijeoma norris MD completed FRC - 03254 Ijeoma prasad MD completed DLCO - 46931 Ijeoma prasad MD completed EKG Ijeoma prasad MD completed EKG Ijeoma prasad MD completed FVC / MVV - 91934 Ijeoma richardson MD completed FRC - 19988 Ijeoma prasad MD completed SpO2 w/o 6min walk/titration Ijeoma Morataya MD completed DLCO - 77860 Ijeoma prasad MD completed EKG Ijeoma prasad MD completed EKG Ijeoma prasad MD completed EKG Ijeoma prasad MD completed FVC / MVV with bronchodilator - 05331 Ijeoma Morataya MD completed BLOOD COUNT HEMOGLOBIN Ijeoma norris MD completed FRC - 77759 Ijeoma prasad MD completed SpO2 w/o 6min walk/titration Ijeoma Morataya MD completed DLCO - 77471 Ijeoma prasad MD completed Schedule Followup Ijeoma richardson MD in 1 mo completed
[2024-08-11 17:02] LABS: Basophils Absolute Auto 0.1 K/mm3 (0.0-0.1); Basophils Percent Auto 0.9 % (0.2-1.2); Eosinophils Absolute Auto 0.2 K/mm3 (0-0.3); Eosinophils Percent Auto 2.1 % (0-4.4); Hematocrit 42.1 % (37.0-47.0); Hemoglobin 13.7 g/dL (12.0-15.0); Immature Granulocyte Absolute 0.02 K/mm3 (0.00-0.031); Immature Granulocyte Percent A 0.3 % (0-0.5); Lymphocytes Absolute Auto 2.08 K/mm3 (0.9-3.2); Lymphocytes Percent Auto 27.6 % (18.3-44.2); Mean Corpuscular HGB Conc 32.5 g/dl (32-36); Mean Corpuscular Hemoglobin 30.1 pg (26-34); Mean Corpuscular Volume 92.5 fl (80-100); Mean Platelet Volume 9.9 fl (7.4-10.4); Monocytes Absolute Auto 0.5 K/mm3 (0.1-0.6); Monocytes Percent Auto 7.2 % (2.6-8.5); Neutrophils Absolute Auto 4.7 K/mm3 (1.3-6.7); Neutrophils Percent Auto 61.9 % (45.5-73.1); Platelet Count Result 268 k/mm3 (150-375); Red Blood Count 4.55 M/mm3 (4.2-5.4); Red Cell Distribution Width 13.5 % (11.5-14.5); White Blood Count 7.5 K/mm3 (4.5-10.0)
[2024-08-11 17:16] LABS: Lactic Acid Reflex 0.9 mmol/L (0.7-2.0)
[2024-08-11 17:18] LABS: Alanine Aminotransferase 26 U/L (6-35); Albumin Level 3.9 g/dL (3.5-5.1); Alkaline Phosphatase 112 U/L (38-126); Anion Gap 4 mmol/L (4-12); Aspartate Amino Transferase 23 U/L (14-36); Bilirubin,Total 0.6 mg/dL (0.2-1.3); Blood Urea Nitrogen 7 mg/dL (7-17); Calcium 8.8 mg/dL (8.4-10.2); Carbon Dioxide 27 mmol/L (22-30); Chloride 107 mmol/L (98-107); Estimated CRCL calculation 84 ml/min; Estimated Glomerular Filt Rate > 60; Glucose 92 mg/dL (65-110); Potassium 4.2 mmol/L (3.4-5.0); Sodium 138 mmol/L (137-145)
[2024-08-11 17:27] LABS: Troponin I < 0.012 ng/mL (0.000-0.034)
--- NOTE | 2024-08-11 17:31 | ED_ITS ---
HPI - General Adult General Chief complaint: Recheck/Abnormal Lab/Rx Stated complaint: blood pressure concerns, unsure if high or low Time Seen by Provider: 08/11/24 15:45 Source: patient Mode of arrival: ambulatory Limitations: no limitations History of Present Illness HPI narrative: 43-year-old with a history of PE on warfarin here with a complaints of having low blood pressure since this morning. Patient states that she called her primary doctor and recommended to come to the ER. She presently denies having any chest pain or shortness of breath. No history of nausea vomiting or diarrhea. Onset (ago): day(s) (1) Associated symptoms: denies other symptoms Treatments prior to arrival: none Related Data Home Medications ?Medication ?Instructions ?Recorded ?Confirmed ?Last Taken ?Type albuterol sulfate 90 mcg/actuation 1 puff inhalation Q4H PRN 08/25/19 08/25/19 Unknown History aerosol inhaler budesonide-formoterol HFA 160 2 puff inhalation Q12H 08/25/19 08/25/19 Unknown History mcg-4.5 mcg/actuation aerosol inhaler (Symbicort) warfarin 5 mg tablet 5 mg PO DAILY 08/25/19 08/25/19 Unknown History Allergies Allergy/AdvReac Type Severity Reaction Status Date / Time aspirin AdvReac Mild Rash Verified 03/21/24 10:07 Review of Systems 2 Review of Systems: All systems reviewed & are unremarkable except as noted in HPI and below Constitutional: Constitutional: Reports no additional constitutional complaints Eyes: Eyes: Reports no additional eye complaints ENT: Reports system reviewed and no additional complaints, except as documented Cardiovascular: Cardiovascular: Reports no additional cardiovascular complaints Respiratory: Respiratory: Reports no additional respiratory complaints Gastrointestinal: Gastrointestinal: Reports no additional gastrointestinal complaints Genitourinary: Genitourinary: Reports no additional female genitourinary complaints Musculoskeletal: Musculoskeletal: Reports no additional musculoskeletal complaints Integumentary/Breasts: Skin/Breast: Reports system reviewed and no additional complaints, except as docu Neurologic: Reports system reviewed and no additional complaints, except as documented PMFSH Past Medical History Medical History (Updated 08/11/24 @ 17:41 by Fletcher Mcgowan MD) Asthma-COPD overlap syndrome Tobacco abuse Hypersomnia Pulmonary embolism Arthritis Social History Social History (Updated 08/25/19 @ 08:54 by Yokasta R. Amrhein) Smoking status: Current every day smoker Exam 2 Narrative: GENERAL: Well-appearing, well-nourished, and in no acute distress. HEAD: Normocephalic, atraumatic. EYES: PERRLA and EOMI. ENT: Nares clear, no rhinorrhea or epistaxis. Mucous membranes moist. NECK: Supple. CHEST: Clear to auscultation. No respiratory distress. HEART: Regular rate and rhythm. No murmur heard. Normal peripheral pulses. ABDOMEN: Soft, nontender, nondistended, normal active bowel sounds. EXTREMITIES: Normal range of motion. No edema. SKIN: Warm, dry, no rash. NEURO: No focal deficits. Alert and oriented x3. PSYCH: Normal mood and affect. Course Vital Signs Vital signs: Vital Signs Temperature 36.4 C 08/11/24 14:04 Pulse Rate 83 08/11/24 14:04 Respiratory Rate 16 08/11/24 14:04 Blood Pressure 108/67 08/11/24 14:04 Pulse Oximetry 98 08/11/24 14:04 Oxygen Delivery Room Air 08/11/24 14:04 Temperature 36.4 C 08/11/24 14:04 Pulse Rate 83 08/11/24 14:33 Respiratory Rate 21 H 08/11/24 14:33 Blood Pressure 112/78 08/11/24 14:33 Pulse Oximetry 99 08/11/24 14:33 Oxygen Delivery Room Air 08/11/24 14:04 Medical Decision Making Differential Diagnosis Differential Diagnosis: Dehydration sepsis, acute Equipment mal function Medical Records Medical records reviewed: Yes I reviewed the external patient's medical records. Vital Signs Vital Signs: Vital Signs Temperature 36.4 C 08/11/24 14:04 Pulse Rate 83 08/11/24 14:04 Respiratory Rate 16 08/11/24 14:04 Blood Pressure 108/67 08/11/24 14:04 Pulse Oximetry 98 08/11/24 14:04 Oxygen Delivery Room Air 08/11/24 14:04 Temperature 36.4 C 08/11/24 14:04 Pulse Rate 83 08/11/24 14:33 Respiratory Rate 21 H 08/11/24 14:33 Blood Pressure 112/78 08/11/24 14:33 Pulse Oximetry 99 08/11/24 14:33 Oxygen Delivery Room Air 08/11/24 14:04 Lab Data 08/11/24 16:46 08/11/24 16:46 Labs: Lab Results 08/11/24 Range/Units 16:46 WBC 7.5 (4.5-10.0) K/mm3 RBC 4.55 (4.2-5.4) M/mm3 Hgb 13.7 (12.0-15.0) g/dL Hct 42.1 (37.0-47.0) % MCV 92.5 (80-100) fl MCH 30.1 (26-34) pg MCHC 32.5 (32-36) g/dl RDW 13.5 (11.5-14.5) % Plt Count 268 (150-375) k/mm3 MPV 9.9 (7.4-10.4) fl Immature Gran % (Auto) 0.3 (0-0.5) % Neut % (Auto) 61.9 (45.5-73.1) % Lymph % (Auto) 27.6 (18.3-44.2) % Roberts % (Auto) 7.2 (2.6-8.5) % Eos % (Auto) 2.1 (0-4.4) % Baso % (Auto) 0.9 (0.2-1.2) % Lymph # (Auto) 2.08 (0.9-3.2) K/mm3 Roberts # (Auto) 0.5 (0.1-0.6) K/mm3 Eos # (Auto) 0.2 (0-0.3) K/mm3 Baso # (Auto) 0.1 (0.0-0.1) K/mm3 Abs Immat Gran (auto) 0.02 (0.00-0.031) K/mm3 Absolute Neuts (auto) 4.7 (1.3-6.7) K/mm3 Absolute Nucleated RBC 0.000 (0.0-0.012) K/mm3 Nucleated RBC % 0.0 (0.0-0.2) % Sodium 138 (137-145) mmol/L Potassium 4.2 (3.4-5.0) mmol/L Chloride 107 (98-107) mmol/L Carbon Dioxide 27 (22-30) mmol/L Anion Gap 4 (4-12) mmol/L BUN 7 (7-17) mg/dL Creatinine 0.74 (0.7-1.0) mg/dL Estim Creat Clear Calc 84 ml/min Estimated GFR > 60 (59 - ) Glucose 92 (65-110) mg/dL Lactic Acid 0.9 (0.7-2.0) mmol/L Calcium 8.8 (8.4-10.2) mg/dL Total Bilirubin 0.6 (0.2-1.3) mg/dL AST 23 (14-36) U/L ALT 26 (6-35) U/L Alkaline Phosphatase 112 (38-126) U/L Troponin I < 0.012 (0.000-0.034) ng/mL Total Protein 7.0 (6.3-8.2) g/dL Albumin 3.9 (3.5-5.1) g/dL ECG Data EKG #1: ECG completion date: 08/11/24 ECG completion time: 13:58 EKG Interpretation: normal rate (82), sinus rhythm, no ST changes, normal QT and no acute changes Discharge Plan Discharge Clinical Impression: Weakness Patient Disposition: Home, Self-Care Condition: Stable Instructions: Normal Exam (ED) Additional Instructions: continue home medications, follow with your doctor. Patient Language: Kyrgyz Prescriptions: No Action warfarin 5 mg tablet 5 mg PO DAILY albuterol sulfate 90 mcg/actuation HFA aerosol inhaler 1 puff INHALATION Q4H PRN budesonide-formoterol [Symbicort] 160-4.5 mcg/actuation HFA aerosol inhaler 2 puff INHALATION Q12H clindamycin HCl 150 mg capsule 450 mg PO Q8H 7 Days Qty: 63 0RF Follow-up/Referrals: Anay,USAMA Vargas [Primary Care Provider] - Stand Alone Forms: Work/School Release IP Time of Disposition: 17:41
== END 2024-08-11 17:55 | disposition home or self-care (01) ==
PROVIDERS: Emergency Provider Family Medicine; PCP Physician Assistant
DX: R53.1 Weakness (principal); J44.9 Chronic obstructive pulmonary disease, unspecified; M19.90 Unspecified osteoarthritis, unspecified site; F17.200 Nicotine dependence, unspecified, uncomplicated; Z86.711 Personal history of pulmonary embolism; Z79.01 Long term (current) use of anticoagulants; R94.31 Abnormal electrocardiogram [ECG] [EKG]
CPT/HCPCS: 36415; 80053; 83605; 84484; 85025; 93005; 99284

== ENCOUNTER 2025-03-26 10:09 | Emergency (ER) | payer SELFPAY ==
[2025-03-26] VITALS (8 sets, daily range): BP systolic 100–128; BP diastolic 65–84; PULSE 60–90; RESP 14–18; TEMP 36.6–36.8; O2SAT 97–100
--- NOTE | ~2025-03-26 | XR_ITS ---
Examination: XR chest 2V Clinical History: cp, sob Comparison: 09/13/2016 Technique: PA and Lateral Findings: Cardiomediastinal silhouette normal size and configuration. Lungs clear. No acute bony abnormality. IMPRESSION: 1. No acute cardiopulmonary findings. Reviewed, dictated and finalized at location A.
--- NOTE | 2025-03-26 10:12 | ECG_ITS ---
Test Date: 2025-03-26 10:19:23 Measurements Intervals [place] Rate: 85 P: 57 CT: 157 QRS: 46 QRSD: 81 T: 42 QT: 339 QTc: 405 Interpretive Statements SINUS RHYTHM NONSPECIFIC ST & T-WAVE ABNORMALITY Compared to ECG 08/11/2024 13:58:34 No significant changes Electronically Signed On 03-26-2025 10:41:14 CDT by Shad Lepe M.D.
--- NOTE | 2025-03-26 10:23 | ED_ITS ---
HPI - Chest Pain General Chief Complaint: Chest Pain Stated Complaint: right sided cp Time Seen by Provider: 03/26/25 10:20 Source: patient Mode of arrival: ambulatory Limitations: no limitations History of Present Illness HPI narrative: Patient is a 44 y/o female, with PMH of smoking, COPD, HLD, who presents to the ED with c/o R sided CP. Patient reports she developed pain throughout her right anterior and lateral chest last night. Worse with movement, deep breathing, laughing. She has been feeling mildly short of breath. She states her gave her a nitroglycerin last night which did relieve the pain slightly. Pain began again this morning has been more persistent. Patient sees a floriculture teacher in [place], is unsure of his name. She is on Plavix as she reports she does not have enough blood pumping through her heart. She denies hx of stents. Denies recent cough or cold symptoms, pain or swelling in her legs, fevers. Related Data Home Medications ?Medication ?Instructions ?Recorded ?Confirmed ?Last Taken ?Type albuterol sulfate 90 mcg/actuation 1 puff inhalation Q 4H PRN 08/25/19 08/25/19 Unknown History aerosol inhaler budesonide-formoterol HFA 160 2 puff inhalation Q12H 0 08/25/19 08/25/19 Unknown History mcg-4.5 mcg/actuation aerosol inhaler (Symbicort) warfarin 5 mg tablet 5 mg PO DAILY 08/25/1908/25 Unknown History Allergies Allergy/AdvReac Type Severity Reaction Status Date / Time aspirin AdvReac Mild Rash Verified 03/26/25 10:16 Review of Systems 2 Review of Systems: All systems reviewed & are unremarkable except as noted in HPI. All systems reviewed & are unremarkable except as noted in HPI and below PMFSH Past Medical History Medical History Asthma-COPD overlap syndrome Tobacco abuse Hypersomnia Pulmonary embolism Arthritis Social History Social History Smoking status: Current every day smoker Exam 2 Narrative: GENERAL: Appears older than stated age, well-nourished, non-toxic, in no acute distress. HEAD: Normocephalic, atraumatic. ENT: Edentulous RESPIRATORY: Airway patent, respirations nonlabored. Clear to auscultation bilaterally, no rales, rhonchi, wheezing. CARDIOVASCULAR: Regular rate and rhythm without murmurs, rubs, or gallops. MUSCULOSKELETAL: Moves all extremities. No gross deformities. Mild TTP over R lateral anterior chest wall. No peripheral edema. No calf tenderness. SKIN: Warm, dry, normal color. NEURO: A&O X3. Speech clear. Cranial nerves II-XII grossly intact. Steady gait. No ataxic movements. PSYCHIATRIC: Appropriate mood and affect. Normal interaction. Course Vital Signs Vital signs: Vital Signs Temperature 97.8 F 03/26/25 10:16 Pulse Rate 90 03/26/25 10:16 Respiratory Rate 17 03/26/25 10:16 Blood Pressure 128/84 03/26/25 10:16 Pulse Oximetry 98 03/26/25 10:16 Oxygen Delivery Room Air 03/26/25 10:16 Temperature 97.8 F 03/26/25 10:16 Pulse Rate 60 03/26/25 13:51 Respiratory Rate 17 03/26/25 13:51 Blood Pressure 102/68 03/26/25 13:51 Pulse Oximetry 100 03/26/25 13:51 Oxygen Delivery Room Air 03/26/25 10:21 MDM - Chest Pain MDM Narrative Medical decision making narrative: Patient presented to ED with right-sided chest pain that began last night, worse with deep breathing/laughing/movement. Vital signs are stable upon arrival. Patient is in no acute distress. Positive chest wall TTP on exam. EKG with sinus rhythm, nonspecific ST changes, but lots of baseline artifact. Troponin undetectable. Chest x-ray is clear. D-dimer WNL HEART score =2 3Hr EKG w/o interval changes. 3Hr trop negative. Patient given muscle relaxer/pain medication here. On reeval, she is feeling improved. Suspicious for musculoskeletal etiology given otherwise reassuring w/u. Low suspicion for ACS at this time. Feel patient is safe for discharge home with lidocaine patches, muscle relaxers for home use. Discussed further pain management, rest. Recommended patient have close follow-up with PCP for further evaluation. Given strict return precautions. She is in agreement with plan. Discharged in stable condition. Medical Records Data Attestation: I reviewed the patient's medical records. Lab Data Attestation: I reviewed the patient's lab results. 03/26/25 10:32 03/26/25 10:32 Labs: Lab Results 03/26/25 03/26/25 03/26/25 Range/Units 10:27 10:32 13:21 WBC 6.5 (4.5-10.0) K/mm3 RBC 4.88 (4.2-5.4) M/mm3 Hgb 14.7 (12.0-15.0) g/dL Hct 44.6 (37.0-47.0) % MCV 91.4 (80-100) fl MCH 30.1 (26-34) pg MCHC 33.0 (32-36) g/dl RDW 13.5 (11.5-14.5) % Plt Count 261 (150-375) k/mm3 MPV 9.9 (7.4-10.4) fl Immature Gran % (Auto) 0.2 (0-0.5) % Neut % (Auto) 54.9 (45.5-73.1) % Lymph % (Auto) 33.4 (18.3-44.2) % [place] % (Auto) 9.2 H (2.6-8.5) % Eos % (Auto) 1.2 (0-4.4) % Baso % (Auto) 1.1 (0.2-1.2) % Lymph # (Auto) 2.17 (0.9-3.2) K/mm3 Otero # (Auto) 0.6 (0.1-0.6) K/mm3 Eos # (Auto) 0.1 (0-0.3) K/mm3 Baso # (Auto) 0.1 (0.0-0.1) K/mm3 Abs Immat Gran (auto) 0.01 (0.00-0.031) K/mm3 Absolute Neuts (auto) 3.6 (1.3-6.7) K/mm3 Absolute Nucleated RBC 0.000 (0.0-0.012) K/mm3 Nucleated RBC % 0.0 (0.0-0.2) % PT 13.8 (11.1-14.7) Seconds INR 1.0 APTT 29.0 (22.3-36.8) Seconds D-Dimer 0.27 (<0.48) ug/mL Sodium 138 (137-145) mmol/L Potassium 3.6 (3.4-5.0) mmol/L Chloride 105 (98-107) mmol/L Carbon Dioxide 24 (22-30) mmol/L Anion Gap 9 (4-12) mmol/L BUN 7 (7-17) mg/dL Creatinine 0.82 (0.7-1.0) mg/dL Estim Creat Clear Calc 77 ml/min Estimated GFR > 60 (59 - ) Glucose 109 (65-110) mg/dL Calcium 9.4 (8.4-10.2) mg/dL Total Bilirubin 0.7 (0.2-1.3) mg/dL AST 24 (14-36) U/L ALT 15 (6-35) U/L Alkaline Phosphatase 110 (38-126) U/L Troponin I < 0.012 < 0.012 (0.000-0.034) ng/mL Total Protein 7.7 (6.3-8.2) g/dL Albumin 4.6 (3.5-5.1) g/dL Lipase 37 (23-300) U/L POC Urine HCG, Qual Negative (Negative) Imaging Data Attestation: I personally reviewed and interpreted this imaging study as follows: Radiologist's impression: ITS Impressions Chest X-Ray 03/26/25 10:53 IMPRESSION: 1. No acute cardiopulmonary findings. ECG Data EKG #1: Attestation: I personally reviewed and interpreted this ECG as follows: ECG completion date: 03/26/25 ECG completion time: 10:19 EKG Interpretation: normal rate (85), sinus rhythm, non-specific ST changes and other (baseline artifact) Discharge Plan Discharge Clinical Impression: Atypical chest pain, Right-sided chest wall pain Patient Disposition: Home Condition: Stable Instructions: Antibiotic Form, Chest Pain (ED), Chest Wall Pain (ED) Additional Instructions: Your workup here was reassuring. Continue Tylenol as needed for pain. You may use ice/heat, lidocaine patches to area of pain. Take muscle relaxers as needed and prescribed. Recommend taking these at night as they may cause sedation. Do not drive, operate heavy machinery, drink alcohol while on muscle relaxers as this may cause further sedation. Follow-up with your primary care doctor for further evaluation. Return to the ED if you experience worsening or severe pain, difficulty breathing, coughing blood, pain or swelling in legs, unable to keep down food or drink, or any other symptoms of concern. Patient Language: Eritrean Prescriptions: New lidocaine 5 % adhesive patch,medicated 1 patch topical DAILY Qty: 15 0RF Rx Instructions: leave on most painful area for up to 12 hrs cyclobenzaprine 5 mg tablet 5 mg PO TID PRN (Reason: muscle spasm) Qty: 15 0RF No Action warfarin 5 mg tablet 5 mg PO DAILY albuterol sulfate 90 mcg/actuation HFA aerosol inhaler 1 puff INHALATION Q4H PRN budesonide-formoterol [Symbicort] 160-4.5 mcg/actuation HFA aerosol inhaler 2 puff INHALATION Q12H clindamycin HCl 150 mg capsule 450 mg PO Q8H 7 Days Qty: 63 0RF Follow-up/Referrals: Anay,USAMA Vargas [Primary Care Provider, Unknown] Stand Alone Forms: Work/School Release IP Time of Disposition: 14:07 Quality HEART score for chest pain patients History: slightly suspicious ECG: non specific repolarization disturbance/LBTB/PM Age: < or = to 45 years Risk factors: 1 or 2 risk factors Troponin: < or = to 1x normal limit Heart score: 2
[2025-03-26 10:29] LABS: BEDSIDEPREGUCG Negative (Negative)
--- OUTSIDE RECORDS SUMMARY | 2025-03-26 10:32 | XMS_ITS | Encounter Summary ---
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 on file Not on file Not on file documented as of this encounter Plan of Treatment Upcoming Encounters Date Type Department Care Team (Late st Contact Info) Description 05/31/2025 11:00 AM [employer] - 05/31/2025 12:00 PM [employer] [facility] [address] [place] [address] Janet Em MD [address] [place] [address] [address] [place] [address] ESOPHAGOGASTRODUODENOSCOPY Scheduled Procedures Name Priority Associated Diagnoses Date/Ti me ESOPHAGOGASTRODUODENOSCOPY Diarrhea, unspecified type Esophagitis 05/31/2025 11:00 AM [employer] COLONOSCOPY Diarrhea, unspecified type Esophagitis 05/31/2025 11:00 AM [employer] documented as of this encounter Visit Diagnoses Not on filedocumented in this encounter Additional Health Concerns Infection Onset Date Last Indicated Resolved Time C. difficile suspected 04/04/2024 04/29/202404/05 3:06 AM CDT C. difficile suspected 04/29/2024 04/29/202404/29 11:20 AM CDT documented as of this encounter Care Teams Garment Turner Relationship Specialty Start Date End Date Alicia Cueva PA [address] [place] [id number] PCP - General Physician Host/Hostess 05/13/22 documented as of this encounter
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
[2025-03-26 10:37] LABS: Hematocrit 44.6 % (37.0-47.0); Hemoglobin 14.7 g/dL (12.0-15.0); Immature Granulocyte Percent A 0.2 % (0-0.5); Lymphocytes Absolute Auto 2.17 K/mm3 (0.9-3.2); Mean Corpuscular HGB Conc 33.0 g/dl (32-36); Mean Corpuscular Hemoglobin 30.1 pg (26-34); Mean Corpuscular Volume 91.4 fl (80-100); Nucleated Red Blood Cells Absolute Auto 0.000 K/mm3 (0.0-0.012); Nucleated Red Blood Cells Perc 0.0 % (0.0-0.2); Platelet Count Result 261 k/mm3 (150-375); Red Blood Count 4.88 M/mm3 (4.2-5.4); White Blood Count 6.5 K/mm3 (4.5-10.0)
[2025-03-26 10:50] LABS: Alanine Aminotransferase 15 U/L (6-35); Albumin Level 4.6 g/dL (3.5-5.1); Alkaline Phosphatase 110 U/L (38-126); Anion Gap 9 mmol/L (4-12); Aspartate Amino Transferase 24 U/L (14-36); Bilirubin,Total 0.7 mg/dL (0.2-1.3); Blood Urea Nitrogen 7 mg/dL (7-17); Calcium 9.4 mg/dL (8.4-10.2); Carbon Dioxide 24 mmol/L (22-30); Chloride 105 mmol/L (98-107); Estimated CRCL calculation 77 ml/min; Estimated Glomerular Filt Rate > 60; Glucose 109 mg/dL (65-110); Lipase 37 U/L (23-300); Potassium 3.6 mmol/L (3.4-5.0); Sodium 138 mmol/L (137-145); Total Protein 7.7 g/dL (6.3-8.2)
[2025-03-26 10:51] LABS: INR 1.0; Prothrombin Time 13.8 Seconds (11.1-14.7)
[2025-03-26 10:52] LABS: Partial Thromboplastin Time 29.0 Seconds (22.3-36.8)
[2025-03-26 11:00] LABS: Troponin I < 0.012 ng/mL (0.000-0.034)
--- OUTSIDE RECORDS SUMMARY | 2025-03-26 11:31 | XMS_ITS | Clinical Summary ---
Author Organization [facility] Address [address] [place] [address] Care Team Providers Care Blood Bank Laboratory Technician Name Role Phone Alicia Cueva Primary Care Provider [phone] Allergies Active Allergy Reactions Criticality Noted Date [...] for pain PRN pain not relieved by oycn-not-towtytg pain medication. Take with food. Collaborating physician [...] testing Assessment & Plan (08/28/2024 11:16 AM STUCCO WORKER): Her level was 149 in 2022 Her FEV1 demonstrated a significant decrease in December of 2023 Her repeat level in January of 2024 was 139 I will plan to monitor this at least annually and with changes in pulmonary function testing Assessment & Plan (05/29/2024 9:55 AM STUCCO WORKER): Last level was 149 in 2022 PFT [...] care Assessment & Plan (08/28/2024 12:46 PM STUCCO WORKER): She will continue Dulera 200 twice daily [...] care Assessment & Plan (05/29/2024 9:56 AM STUCCO WORKER): Continue Dulera 200 twice daily She is [...] techniques - She is aware of the [place] Tobacco Quit line: 6-956-RBKU-YES for free services - 5 minutes spent [...] techniques - She is aware of the [place] Tobacco Quit line: 5-096-HZPN-YES for free services - 6 minutes spent discussing cessation She continues to decline NRT She remains on several psychiatric medications, varencline may not be a suitable option. We have discussed wellbutrin and she will consider this We have again discussed vape cessation. She is not a candidate for LDCT due to age Assessment & Plan (08/28/2024 12:47 PM STUCCO WORKER): - Smoking cessation counseling and techniques reviewed at length - Avoid triggers and use distraction techniques - Participate in support groups - She is aware of the [place] Tobacco Quit line: 3-176-GVBX-YES for free services - 4 minutes spent discussing cessation I have strongly encouraged NRT She remains on several psychiatric medications, varencline may not be a suitable option I have encouraged vape cessation as well. She is not a candidate for LDCT due to age Assessment & Plan (05/29/2024 9:59 AM STUCCO WORKER): - Smoking cessation counseling and techniques reviewed at length - Avoid triggers and use distraction techniques - Participate in support groups - Information given regarding [place] Quit line: 9-760-PWJC-YES for free services - 4 minutes spent [...] in support groups - Information given regarding [place] Tobacco Quit line: 4-659-LYSD-YES for free services - 4 minutes spent discussing cessation Assessment & Plan (12/28/2023 9:25 AM CDT): - Smoking cessation counseling and techniques reviewed at length - Avoid triggers and use distraction techniques - Information given regarding [place] Quit line: 6-431-GAVX-YES for free services - 4 minutes spent [...] dyspnea Assessment & Plan (08/28/2024 12:48 PM STUCCO WORKER): Continue pantoprazole 40 mg twice daily Elevate head of bed while sleeping Avoid tight clothing and eating 2-3 hours before bed She had a recent EGD with esophageal dilation and biopsies Continue to follow closely with GI Assessment & Plan (05/29/2024 10:01 AM STUCCO WORKER): Continue pantoprazole 40 mg twice daily Elevate [...] vaping. Assessment & Plan (08/28/2024 12:45 PM STUCCO WORKER): PFT shows severe air trapping She is currently on triple therapy and has tried multiple other inhalers with no significant clinical benefit Alpha1 levels are normal Due to her continued dyspnea and other workups with intervention we will repeat a full PFT and walk testing. Assessment & Plan (05/29/2024 9:58 AM STUCCO WORKER): PFT does not show obstruction- rather air [...] 2023 Assessment & Plan (08/13/2023 11:32 AM STUCCO WORKER): She has had little benefit from inhaled therapy, leading me to believe that her dyspnea is not primary pulmonary in origin. PFT shows air trapping but not obstruction. She is on triple therapy and has tried multiple inhalers. I have encouraged smoking cessation A1AT MS Level 149 with no obstruction on PFT Multiple nodules of lung 08/13/2023 Assessment & Plan (08/13/2023 10:59 AM STUCCO WORKER): Resolved Dysphagia 06/24/2023 Assessment & Plan (12/27/2023 [...] GI Assessment & Plan (08/13/2023 11:07 AM STUCCO WORKER): Her PFT shows no fixed obstriction, but [...] (02/04/2021): Added automatically from request for surgery [id number] Right elbow tendinitis 02/01/2021 Insomnia 09/06/2019 Resolved [...] 08/13/202312/17 Assessment & Plan (08/13/2023 10:59 AM STUCCO WORKER): - Smoking cessation counseling and techniques reviewed at length - Literature reviewed - Avoid triggers and use distraction techniques - Participate in support groups - Information given regarding [place] Quit line: 6-679-WSJJ-YES for free services - 4 minutes spent discussing cessation I have also strongly encouraged her to quit vaping Encounters Date Type Department Care Team Description 01/12/[address] [facility] Medicine Cardiology [address] [place] [address] Abdoulaye Radford MD Scheduling Testing/Treatment (Cardiac PET) 01/11/2025 1:45 PM CDT Office Visit [facility] Medicine Cardiology [address] [place] [address] Abdoulaye Radford MD Chest pain, unspecified type (Primary Dx); Coronary artery disease involving [place] coronary artery of [place] heart without angina pectoris; Mixed hyperlipidemia 01/09/2025 3:00 PM CDT Office Visit [facility] Medical [facility] Pulmonary at [address] [place] [address] Cailin Bridges, FULL TIME Alpha 1-antitrypsin PiMS phenotype (Primary Dx); Asthma-COPD [...] on file Legal Sex Female 3:36 PM STUCCO WORKER Gender Identity Not on file Sexual Orientation [...] st Contact Info) Description 05/31/2025 11:00 AM STUCCO WORKER - 05/31/2025 12:00 PM STUCCO WORKER Surgery [facility] [address] [place] [address] Janet Em MD [address] [place] [address] [address], [place] [address] ESOPHAGOGASTRODUODENOSCOPY Scheduled Procedures Name Priority Associated Diagnoses Date/Ti me ESOPHAGOGASTRODUODENOSCOPY Diarrhea, unspecified type Esophagitis 05/31/2025 11:00 AM STUCCO WORKER COLONOSCOPY Diarrhea, unspecified type Esophagitis 05/31/2025 11:00 AM STUCCO WORKER Health Maintenance Due Date Last Done Comments [...] 07/20/2019, 2017 Medical Devices Implanted Type Area Industrial Production Manager Device Identifier Shelf Expiration Date Model / Serial / Lot [employer] Angio-Seal Vip 6fr Closere Device [id number] - [id number] Implanted:Qty: 1 on 06/30/2024 by Guerrero Barnes MD at [facility] [employer] 11/11/2024 [id number] / / [id number] Procedures Procedure Name Priority Date/Time Associated Diagnosis Comments ECG 12-LEAD Routine 01/11/2025 2:52 PM CDT Chest pain, unspecified type from Last 3 Months Results * ECG 12 lead (01/11/2025 2:52 PM CDT) Abdoulaye Radford MD ECG ORDERABLES Edited Result - Final from Last 3 Months Insurance [facility] Advance Directives For more information, please contact: [phone] * Full Code (Latest Code Status on [...] 7:04 AM 11/05/2023 7:04 AM Care Teams Blood Bank Laboratory Technician Relationship Specialty Start Date End Date Alicia Cueva PA [address] [place] [id number] PCP - General Physician Nurses Director 05/13/22
--- OUTSIDE RECORDS SUMMARY | 2025-03-26 11:31 | XMS_ITS | Encounter Summary ---
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 Not on file Not on file Not on file documented as of this encounter Plan of Treatment Upcoming Encounters Date Type Department Care Team (Late st Contact Info) Description 05/31/2025 11:00 AM FIBERGLASS MACHINE OPERATOR - 05/31/2025 12:00 PM FIBERGLASS MACHINE OPERATOR Surgery [facility] [address] [place] [address] Janet Em MD [address] [place] [address] [address] [place] [address] ESOPHAGOGASTRODUODENOSCOPY Scheduled Procedures Name Priority Associated Diagnoses Date/Ti me ESOPHAGOGASTRODUODENOSCOPY Diarrhea, unspecified type Esophagitis 05/31/2025 11:00 AM FIBERGLASS MACHINE OPERATOR COLONOSCOPY Diarrhea, unspecified type Esophagitis 05/31/2025 11:00 AM FIBERGLASS MACHINE OPERATOR documented as of this encounter Visit Diagnoses Not on filedocumented in this encounter Additional Health Concerns Infection Onset Date Last Indicated Resolved Time C. difficile suspected 04/04/2024 04/29/202404/05 3:06 AM CDT C. difficile suspected 04/29/2024 04/29/202404/29 11:20 AM CDT documented as of this encounter Care Teams End Finder Twisting Department Relationship Specialty Start Date End Date Alicia Cueva PA [address] [place] [id number] PCP - General Physician Manufacturing Specialist 05/13/22 documented as of this encounter
[2025-03-26] MEDS: CYCLOBENZAPRINE HCL 5 MG TABLET PO (12:08)
[2025-03-26] MEDS: HYDROcodone/acetaminophen (*CRX) 5-325 MG TABLET 1 TAB PO (12:08)
--- NOTE | 2025-03-26 13:16 | ECG_ITS ---
Test Date: 2025-03-26 13:24:06 Measurements Intervals Keavy Rate: 63 P: 59 NC: 193 QRS: 42 QRSD: 78 T: 34 QT: 404 QTc: 415 Interpretive Statements SINUS RHYTHM WITH SINUS ARRHYTHMIA WITHIN NORMAL LIMITS Compared to ECG 03/26/2025 10:19:23 T-wave abnormality no longer present Electronically Signed On 03-28-2025 15:17:00 CDT by Dinh Silver M.D.
[2025-03-26 14:00] LABS: Troponin I < 0.012 ng/mL (0.000-0.034)
== END 2025-03-26 14:35 | disposition home or self-care (01) ==
PROVIDERS: Emergency Medicine; Emergency Provider Physician Assistant; PCP Physician Assistant
DX: R07.89 Other chest pain (principal); J44.9 Chronic obstructive pulmonary disease, unspecified; M19.90 Unspecified osteoarthritis, unspecified site; Z86.711 Personal history of pulmonary embolism; Z79.01 Long term (current) use of anticoagulants; F17.210 Nicotine dependence, cigarettes, uncomplicated
CPT/HCPCS: 36415; 71046; 80053; 81025; 83690; 84484; 85025; 85380; 85610; 85730; 93005; 99284; A9270